=== PATIENT | male | born 1995 ===

== ENCOUNTER 2018-01-13 21:05 | Inpatient (IN) | payer BC ==
[~2018-01-13] VITALS: Ht 170.2 cm; Wt 70.3 kg
[2018-01-13] MEDS ORDERED: SODIUM CHLORIDE 0.9% 1000ML 1,000 ML IV STA ×2 (21:23→23:02)
[2018-01-13] MEDS ORDERED: KETOROLAC TROMETHAMINE 30 MG/ML VIAL IV STA (21:56)
[2018-01-13] MEDS ORDERED: ONDANSETRON INJ 2 MG/ML 2 ML VIAL IV STA ×2 (21:56→23:02)
[2018-01-13 22:20] LABS: BASO ABS # 0.01 K/uL (0-0.2); HEMATOCRIT 48.4 % (42-52); HEMOGLOBIN 17.7 g/dL (14.0-18.0); IG# 0.08 K/uL (0.00-0.02); LYMPH ABS # 1.22 K/uL (1.2-3.4); MEAN CELL VOLUME 89.5 fL (80-100); MEAN CORPUSCULAR HEMOGLOBIN 32.7 pg (25-34); MEAN CORPUSCULAR HGB CONC 36.6 g/dl (32-36); MEAN PLATELET VOLUME 9.6 fL (7.4-10.4); MONO % 4.7 %; MONO ABS # 0.96 K/uL (0.11-0.59); NEUT % 88.9 %; NEUT ABS # 18.01 K/uL (1.4-6.5); PLATELET COUNT 381 K/uL (130-400); RED CELL DISTRIBUTION WIDTH SD 38.3 fL (36.4-46.3); WHITE BLOOD COUNT 20.28 K/uL (4.8-10.8)
[2018-01-13] MEDS ORDERED: HYDROmorphone INJ 0.5 MG/0.5 ML SYR IV STA (23:02)
[2018-01-13] MEDS ORDERED: OPTIRAY 320 IV PRN (23:15)
[2018-01-13 23:20] LABS: CALCIUM 9.7 mg/dl (8.5-10.1); CREATININE 1.72 mg/dl (0.60-1.40); POTASSIUM 4.3 mmol/L (3.5-5.1)
[2018-01-13 23:23] LABS: TOTAL PROTEIN 8.3 gm/dl (6.4-8.2)
[2018-01-14] MEDS ORDERED: LACTATED RINGER'S 1000ML 1,000 ML IV STA (00:04)
[2018-01-14] MEDS ORDERED: HYDROmorphone INJ 1 MG/ML SYR IV PRN (00:15)
--- NOTE | 2018-01-14 00:54 | EMERGENCY ROOM VISIT NOTE ---
History Report prepared by Karel: Leandro Resendiz Under the Supervision of: Dr. Jah Cid M.D. First contact with patient: 21:23 Chief Complaint: ABDOMINAL PAIN Stated Complaint: AB PAIN Nursing Triage Summary: Pt reports the last 3 days he has had vomiting and diarrhea. Today around 1430 he started with sharp abdominal pains. History of Present Illness The patient is a 22 year old male who presents to the Emergency Room with complaints of constant, sharp, lower abdominal pain beginning three days ago. The patient states his discomfort started in his throat, spread to his chest, and then spread to his lower abdomen. He reports he is also experiencing a decreased appetite, nausea, vomiting, and diarrhea. The patient notes he was not able to eat or drink anything today. He states he was around his girlfriend that had the flu. The patient reports he tried Maalox prior to arrival, and it did not help. Pt denies LOC, headache, fevers, chills, diaphoresis, visual changes, neck pain, breathing difficulties, back pain, melena, hematochezia, urinary symptoms, numbness, weakness, lymphadenopathy, rash, eating anything unusual, major alcohol use, a history of abdominal surgeries, or other complaints. Source of History: patient Onset: three days ago Position: abdomen (lower) Quality: sharp Timing: constant Associated Symptoms: + nausea, + vomiting, + diarrhea Note: Associated symptoms: decreased appetite and fluid intake, being around his girlfriend who had the flu Review of Systems See HPI for pertinent positives and negatives. A total of ten systems were reviewed and were otherwise negative. Past Medical & Surgical Medical Problems: (1) Acute pancreatitis (2) No Known Active Medical Problems Family History Patient reports no known family medical history. Social History Smoking Status: Never Smoker Alcohol Use: none Marital Status: single Occupation Status: [employer] student Current/Historical Medications No Active Prescriptions or Reported Meds Allergies Coded Allergies: No Known Allergies (Unverified , 01/13/18) Physical Exam Vital Signs Date Time Temp Pulse Resp B/P (MAP) Pulse Ox O2 Delivery O2 Flow Rate FiO2 01/13/18 23:42 113 21 151/98 98 Room Air 01/13/18 23:02 115 20 152/91 98 Room Air 01/13/18 22:45 106 18 01/13/18 22:24 103 01/13/18 21:11 36.6 114 16 166/91 98 Room Air Physical Exam GENERAL: Awake, alert, uncomfortable ill appearing, no distress HEAD: Normocephalic, atraumatic. No edema. EYES: Normal conjunctiva. Sclera non-icteric. OROPHARYNX: Lips, tongue, and mucosa unremarkable. No erythema or exudate. NECK: Supple. No nuchal rigidity. FROM. No adenopathy. RESPIRATORY: CTA bilaterally. No wheezes rales or rhonchi. Normal respiratory effort. CARDIAC: Borderline tachycardic rate. Normal rhythm. No murmurs. No rubs. GI: Soft, non distended. Epigastric tenderness to palpation. No rebound or guarding. MUSCULOSKELETAL: Atraumatic. No edema. NEURO: Normal sensorium. Speech normal. SKIN: No rash or jaundice noted Medical Decision & Procedures ER Provider Diagnostic Interpretation: Radiology results as stated below per my review and radiologist interpretation CT ABDOMEN & PELVIS Without Contrast: Inflammatory stranding surrounding the pancreas suggestive of acute pancreatitis. No evidence of a focal fluid collection. Fatty infiltration of the liver. Possible sludge within the gallbladder. No evidence of free air. No evidence of bowel obstruction or wall thickening. Radiologist: Toi Langston DO Study ready at 0002 and initial results transmitted at 0007. Laboratory Results 01/13/18 22:10 Red Blood Count 5.41, Mean Corpuscular Volume 89.5, Mean Corpuscular Hemoglobin 32.7, Mean Corpuscular Hemoglobin Concent 36.6, Mean Platelet Volume 9.6, Neutrophils (%) (Auto) 88.9, Lymphocytes (%) (Auto) 6.0, Monocytes (%) (Auto) 4.7, Eosinophils (%) (Auto) 0.0, Basophils (%) (Auto) 0.0, Neutrophils # (Auto) 18.01, Lymphocytes # (Auto) 1.22, Monocytes # (Auto) 0.96, Eosinophils # (Auto) 0.00, Basophils # (Auto) 0.01 01/13/18 22:10 Test 01/13/18 00:00 01/13/18 22:10 01/14/18 00:38 Urine Color DK YELLOW Urine Appearance CLOUDY (CLEAR) Urine pH 5.0 (4.5-7.5) Urine Specific [place] 1.037 (1.000-1.030) Urine Protein 1+ (NEG) Urine Glucose (UA) NEG (NEG) Urine Ketones NEG (NEG) Urine Occult Blood TRACE (NEG) Urine Nitrite NEG (NEG) Urine Bilirubin NEG (NEG) Urine Urobilinogen NEG (NEG) Urine Leukocyte Esterase NEG (NEG) Urine WBC (Auto) 1-5 /hpf (0-5) Urine RBC (Auto) 0-4 /hpf (0-4) Urine Hyaline Casts (Auto) >30 /lpf (0-5) Urine Epithelial Cells (Auto) >30 /lpf (0-5) Urine Bacteria (Auto) NEG (NEG) Urine Renal Epithelial Cells /lpf (0-5) Urine Pathogenic Casts /lpf (0) Urine Mucus PRESENT (NONE PRSENT) White Blood Count 20.28 K/uL (4.8-10.8) Red Blood Count 5.41 M/uL (4.7-6.1) Hemoglobin 17.7 g/dL (14.0-18.0) Hematocrit 48.4 % (42-52) Mean Corpuscular Volume 89.5 fL (80-100) Mean Corpuscular Hemoglobin 32.7 pg (25-34) Mean Corpuscular Hemoglobin Concent 36.6 g/dl (32-36) Platelet Count 381 K/uL (130-400) Mean Platelet Volume 9.6 fL (7.4-10.4) Neutrophils (%) (Auto) 88.9 % Lymphocytes (%) (Auto) 6.0 % Monocytes (%) (Auto) 4.7 % Eosinophils (%) (Auto) 0.0 % Basophils (%) (Auto) 0.0 % Neutrophils # (Auto) 18.01 K/uL (1.4-6.5) Lymphocytes # (Auto) 1.22 K/uL (1.2-3.4) Monocytes # (Auto) 0.96 K/uL (0.11-0.59) Eosinophils # (Auto) 0.00 K/uL (0-0.5) Basophils # (Auto) 0.01 K/uL (0-0.2) RDW Standard Deviation 38.3 fL (36.4-46.3) RDW Coefficient of Variation 12.0 % (11.5-14.5) Immature Granulocyte % (Auto) 0.4 % Immature Granulocyte # (Auto) 0.08 K/uL (0.00-0.02) Anion Gap 16.0 mmol/L (3-11) Est Creatinine Clear Calc Drug Dose 69.2 ml/min Estimated GFR () 64.9 Estimated GFR (Non- 56.0 BUN/Creatinine Ratio 13.1 (10-20) Calcium Level 9.7 mg/dl (8.5-10.1) Total Bilirubin 0.9 mg/dl (0.2-1) Direct Bilirubin 0.2 mg/dl (0-0.2) Aspartate Amino Transf (AST/SGOT) 113 U/L (15-37) Alanine Aminotransferase (ALT/SGPT) 91 U/L (12-78) Alkaline Phosphatase 75 U/L (45-117) Total Protein 8.3 gm/dl (6.4-8.2) Albumin 5.0 gm/dl (3.4-5.0) Lipase 4171 U/L (73-393) Laboratory results reviewed by me Medications Administered Medications (Trade) Dose Ordered Sig/Judith Route Start Time Stop Time Status Last Admin Dose Admin Sodium Chloride 1,000 ml @ 999 mls/hr Q1H1M STAT IV 01/13/18 21:23 01/13/18 22:23 DC 01/13/18 22:07 999 MLS/HR Ketorolac Tromethamine (Toradol Inj) 15 mg NOW STAT IV 01/13/18 21:56 01/13/18 21:57 DC 01/13/18 22:07 15 MG Ondansetron HCl (Zofran Inj) 4 mg NOW STAT IV 01/13/18 21:56 01/13/18 21:57 DC 01/13/18 22:07 4 MG Sodium Chloride 1,000 ml @ 999 mls/hr Q1H1M STAT IV 01/13/18 23:02 01/14/18 00:02 DC 01/13/18 23:12 999 MLS/HR Ondansetron HCl (Zofran Inj) 4 mg NOW STAT IV 01/13/18 23:02 01/13/18 23:03 DC 01/13/18 23:11 4 MG Hydromorphone HCl (Dilaudid Inj) 0.5 mg NOW STAT IV 01/13/18 23:02 01/13/18 23:03 DC 01/13/18 23:12 0.5 MG Hydromorphone HCl (Dilaudid Inj) 1 mg Q15M PRN IV 01/14/18 00:15 01/28/18 00:14 01/14/18 00:10 1 MG Lactated Ringer's 1,000 ml @ 200 mls/hr Q5H STAT IV 01/14/18 00:04 01/14/18 05:03 01/14/18 00:32 200 MLS/HR ED Course 2122: Ordered Sodium Chloride 1000 ml @ 999 mls/hr IV 215: The patient was evaluated in room B09. A complete history and physical exam was performed. 2155: Ordered Ondansetron HCl 4mg IV, Toradol Inj 15mg IV 2302: Ordered Dilaudid Inj 0.5mg IV, Zofran Inj 4mg IV, Sodium Chloride 1000 ml @ 999 mls/hr IV 2346: Upon reexamination, the patient was resting. He requested more pain medication. I discussed the test results and treatment plan with him. The patient will be evaluated for further management. 0004: Ordered Lactated Ringer's 1000ml @ 200 mls/hr IV 0015: Ordered Dilaudid Inj 1mg IV 0025: I discussed the patient's case with Dr. Jensen, [facility] Hospitalist. The patient will be evaluated for further management and care. Medical Decision Triage Nursing notes reviewed and agree them. The patient's history was concerning for abdominal pain. Differential diagnosis: Etiologies such as appendicitis, diverticulitis, PUD, biliary pathology, UTI, pancreatitis, obstruction, mesenteric ischemia, aortic pathology, infections, inflammatory bowel disease, renal colic, as well as others were entertained. Physical examination findings: As above. ER treatment provided: IV normal saline 2 L IV Zofran IV Toradol On reassessment the patient felt the same. IV Dilaudid 0.5 mg On reassessment patient was still having pain IV Dilaudid 1 mg Lactated Ringer at 200 mL an hour IV Diagnostics interpreted by me: The labs revealed marked leukocytosis on CBC. Chemistry panel revealed some mild renal insufficiency seems to be consistent with dehydration. The patient has marked elevation of his lipase concerning for pancreatitis. Imaging studies: CT scan as above On reassessment after laboratory results revealed pancreatitis I did question the patient again and he did admit to alcohol use several days ago. I suspect that he has pancreatitis related to this. I gave my usual and customary discussion regarding this issue. Consultation: A consultation was placed with the [facility] hospitalist. The case was discussed and diagnostics were reviewed. The patient was evaluated in the ER for further treatment. Medication Reconcilliation Current Medication List: was personally reviewed by me Blood Pressure Screening Patient's blood pressure: Elevated blood pressure Blood pressure disposition: Elevated BP felt to be situational Consults Time Called: 1981 Consulting Physician: Dr. Jensen, [facility] Hospitalist Returned Call: [phone] I discussed the patient's case with Dr. Jensen, [facility] Hospitalist. The patient will be evaluated for further management and care. Impression Primary Impression: Acute pancreatitis Scribe Attestation The scribe's documentation has been prepared under my direction and personally reviewed by me in its entirety. I confirm that the note above accurately reflects all work, treatment, procedures, and medical decision making performed by me. Departure Information Dispostion Being Evaluated By Hospitalist Prescriptions No Active Prescriptions or Reported Meds Referrals No Doctor, Assigned (PCP) Patient Instructions My [facility]
--- NOTE | 2018-01-14 01:01 | History and Physical ---
History & Physical Date & Time of Service: Jan 14, 2018 at 00:43 Chief Complaint: Ab Pain Primary Care Physician: No Doctor, Assigned History of Present Illness Source: patient 22 year old male with no significant past medical history presented to [facility] with abdominal pain He describes his abdominal as centrally located. It started this morning when he woke up. It got worse at 1430. He describes it as a sharp contact pain that has been gradually getting worse. He rates the pain as rating from 5-9/10. Associated symptoms include nausea, vomiting, and decreased appetite. He notes that over the past 2-3 days he has had a viral infection with a sore throat, runny nose, fevers, chills, and diarrhea. He notes that he had 2-3 drinks on Friday night but denies any excess binge drinking. He denies any drug use. He denies any recent international travel. He denies any family history of gallstones or hyperlipidemia. In the ED his heart rate was 115 and blood pressure was 151/98. His labs were significant for a WCC of 20, Creat of 1.72, Lipase of 4171 and glucose of 152. He had a CT of his abdomen/pelvis which showed inflammatory stranding surrounding the pancrease and it showed gallbladder sludge. Past Medical/Surgical History Medical Problems: (1) Acute pancreatitis (2) No Known Active Medical Problems Family History Patient reports no known family medical history. Dad- HTN Social History Smoking Status: Never Smoker Smokeless Tobacco Use: No Alcohol Use: occasionally Drug Use: none Marital Status: single Housing status: lives with roommate Occupational Status: [employer] student Immunizations History of Tetanus Vaccine?: Unknown History of Pneumococcal: No History of Hepatitis B Vaccine: Unknown Allergies Coded Allergies: No Known Allergies (Unverified , 01/13/18) Home Medications No Active Prescriptions or Reported Meds Review of Systems Constitutional: + fever, + chills, + sweats, + fatigue Eyes: No worsening of vision, No redness Respiratory: No cough, No sputum, No shortness of breath Cardiovascular: No chest pain, No edema, No palpitations Abdomen: + pain, + nausea, + vomiting, + diarrhea, No constipation, No GI bleeding Musculoskeletal: No joint pain, No muscle pain, No swelling, No calf pain Genitourinary - Male: No hematuria, No dysuria Neurologic: No memory loss, No numbness/tingling, No balance problems Hematologic / Lymphatic: No abnormal bleeding/bruising, No clotting problems, No swollen lymph nodes Integumentary: No rash, No itch, No new/changing skin lesions Physical Exam Vital Signs Date Time Temp Pulse Resp B/P (MAP) Pulse Ox O2 Delivery O2 Flow Rate FiO2 01/13/18 23:42 113 21 151/98 98 Room Air 01/13/18 23:02 115 20 152/91 98 Room Air 01/13/18 22:45 106 18 01/13/18 22:24 103 01/13/18 21:11 36.6 114 16 166/91 98 Room Air General Appearance: WD/WN, no apparent distress Head: normocephalic, atraumatic Eyes: normal inspection, PERRL ENT: hearing grossly normal, pharynx normal, + pertinent finding (lips dry) Neck: supple, no adenopathy, no JVD, no carotid bruits Respiratory/Chest: lungs clear Cardiovascular: regular rate, rhythm, no murmur, normal peripheral pulses Abdomen/GI: normal bowel sounds, + tenderness (mild-moderate lower abdominal and mid abdominal tenderness, no rebound or guarding) Back: normal inspection, normal range of motion Extremities/Musculoskelatal: no calf tenderness, no pedal edema, non-tender, pelvis stable Neurologic/Psych: alert, normal mood/affect, oriented x 3 Skin: normal color, warm/dry, no rash Diagnostics Laboratory Results Results Past 24 Hours Test 01/13/18 22:10 01/14/18 00:38 Range/Units White Blood Count 20.28 4.8-10.8 K/uL Red Blood Count 5.41 4.7-6.1 M/uL Hemoglobin 17.7 14.0-18.0 g/dL Hematocrit 48.4 42-52 % Mean Corpuscular Volume 89.5 80-100 fL Mean Corpuscular Hemoglobin 32.7 25-34 pg Mean Corpuscular Hemoglobin Concent 36.6 32-36 g/dl Platelet Count 381 130-400 K/uL Mean Platelet Volume 9.6 7.4-10.4 fL Neutrophils (%) (Auto) 88.9 % Lymphocytes (%) (Auto) 6.0 % Monocytes (%) (Auto) 4.7 % Eosinophils (%) (Auto) 0.0 % Basophils (%) (Auto) 0.0 % Neutrophils # (Auto) 18.01 1.4-6.5 K/uL Lymphocytes # (Auto) 1.22 1.2-3.4 K/uL Monocytes # (Auto) 0.96 0.11-0.59 K/uL Eosinophils # (Auto) 0.00 0-0.5 K/uL Basophils # (Auto) 0.01 0-0.2 K/uL RDW Standard Deviation 38.3 36.4-46.3 fL RDW Coefficient of Variation 12.0 11.5-14.5 % Immature Granulocyte % (Auto) 0.4 % Immature Granulocyte # (Auto) 0.08 0.00-0.02 K/uL Sodium Level 137 136-145 mmol/L Potassium Level 4.3 3.5-5.1 mmol/L Chloride Level 102 98-107 mmol/L Carbon Dioxide Level 19 21-32 mmol/L Anion Gap 16.0 3-11 mmol/L Blood Urea Nitrogen 23 7-18 mg/dl Creatinine 1.72 0.60-1.40 mg/dl Est Creatinine Clear Calc Drug Dose 69.2 ml/min Estimated GFR () 64.9 Estimated GFR (Non- 56.0 BUN/Creatinine Ratio 13.1 10-20 Random Glucose 152 70-99 mg/dl Calcium Level 9.7 8.5-10.1 mg/dl Total Bilirubin 0.9 0.2-1 mg/dl Direct Bilirubin 0.2 0-0.2 mg/dl Aspartate Amino Transf (AST/SGOT) 113 15-37 U/L Alanine Aminotransferase (ALT/SGPT) 91 12-78 U/L Alkaline Phosphatase 75 45-117 U/L Total Protein 8.3 6.4-8.2 gm/dl Albumin 5.0 3.4-5.0 gm/dl Lipase 4171 73-393 U/L Diagnostic Radiology CT abdomen/pelvis = inflammatory stranding surrounding the Pancreas and sludge in the gallbladder Impression Assessment and Plan 22 year old with no significant PMH presented to [facility] with abdominal pain and was found to have acute pancreatitis Acute Pancreatitis due to unknown eitology - DDx: Alcohol (will order EtOH level), Drug (ordering urine drug screen), Hypertriglyceridemia (ordering lipid panel), Viral infection - NPO - IV w/ LR at 200 mls/hr - Dilaudid 0.5mg q4 IV prn pain - Zofran IV prn nausea - Trend lipase Impaired fasting glucose - likely secondary to abnormal pancreatic function - will check an HbA1c DVT - scd's lower extremities FULL CODE Attending addendum: I have physically seen this patient, have supervised the medical residents activities, and agree with the H&P unless as otherwise noted. Assessment and Plan: Acute pancreatitis-- N.p.o. Rehydration with lactated Ringer's IV fluids at 100 mL's per hour Serial lipase levels Zofran 4 mg IV every 6 hours as needed. Dilaudid 0.5 mg IV every 4 hours as needed severe pain Check a urine drug screen, fasting lipid panel, and hemoglobin A1c. Advanced Directives Existing Advance Directive: No Existing Living Will: No Resuscitation Status VTE Prophylaxis Will order VTE Prophylaxis: Yes Social Service Consult None Apply
[2018-01-14] MEDS: HYDROmorphone INJ 0.5 MG/0.5 ML SYR IV PRN ×3 (02:28→11:31)
[2018-01-14 02:58] VITALS: BP 145/96; PULSE 120; TEMP 36.8; O2SAT 96; BMI 25.2
[2018-01-14] MEDS: LACTATED RINGER'S 1000ML 1,000 ML IV SCH ×5 (04:13→23:43)
--- NOTE | 2018-01-14 07:24 | DIAGNOSTIC IMAGING REPORT ---
ABDOMEN AND PELVIS CT WITHOUT CONTRAST CT DOSE: 312.88 mGy.cm HISTORY: upper abd pain, pancreatitis, NELL cr 1.72 TECHNIQUE: Multiaxial CT images of the abdomen and pelvis were performed without contrast. A dose lowering technique was utilized adhering to the principles of ALARA. COMPARISON STUDY: None. FINDINGS: The lung bases are clear. No pneumoperitoneum. No pneumatosis. No fractures within the visualized osseous structures. Hepatic steatosis. Slightly hyperdense material within the gallbladder. This could represent sludge. The unenhanced spleen, adrenal glands, and kidneys are unremarkable. Peripancreatic inflammatory change and a small amount of free fluid consistent with acute pancreatitis. Evaluation for a pancreatic mass or pancreatic necrosis is essentially nondiagnostic due to the lack of intravenous contrast. No significant retroperitoneal lymphadenopathy. Mild thickening of the second portion of the duodenum is likely reactive. The bladder is decompressed. No evidence for bowel obstruction. Normal appendix. IMPRESSION: 1. Peripancreatic inflammatory change and fluid consistent with acute pancreatitis. No loculated fluid collections at this time to suggest an abscess or pseudocyst. 2. Slightly hyperdense material within the gallbladder suggestive of sludge. 3. Hepatic steatosis. Electronically signed by: Wagner Dominique M.D. 01/14/2018 7:23 AM Dictated Date/Time: 01/14/2018 7:19 AM
[2018-01-14] MEDS: ONDANSETRON INJ 2 MG/ML 2 ML VIAL IV PRN (07:38)
[2018-01-14 07:59] LABS: BASO % 0.1 %; BASO ABS # 0.01 K/uL (0-0.2); EOS % 0.1 %; EOS ABS # 0.01 K/uL (0-0.5); HEMATOCRIT 40.1 % (42-52); HEMOGLOBIN 14.4 g/dL (14.0-18.0); IG# 0.03 K/uL (0.00-0.02); LYMPH % 3.8 %; LYMPH ABS # 0.53 K/uL (1.2-3.4); MEAN CELL VOLUME 90.5 fL (80-100); MEAN CORPUSCULAR HEMOGLOBIN 32.5 pg (25-34); MEAN CORPUSCULAR HGB CONC 35.9 g/dl (32-36); MEAN PLATELET VOLUME 9.3 fL (7.4-10.4); MONO ABS # 1.25 K/uL (0.11-0.59); NEUT % 86.8 %; NEUT ABS # 12.02 K/uL (1.4-6.5); PLATELET COUNT 255 K/uL (130-400); RED CELL DISTRIBUTION WIDTH CV 12.2 % (11.5-14.5); RED CELL DISTRIBUTION WIDTH SD 39.6 fL (36.4-46.3); WHITE BLOOD COUNT 13.85 K/uL (4.8-10.8)
[2018-01-14 08:23] LABS: ALBUMIN 3.5 gm/dl (3.4-5.0); CALCIUM 8.1 mg/dl (8.5-10.1); CREATININE 1.09 mg/dl (0.60-1.40); POTASSIUM 4.1 mmol/L (3.5-5.1); TOTAL PROTEIN 5.9 gm/dl (6.4-8.2)
[2018-01-14 08:25] VITALS: BP 152/94; PULSE 109; TEMP 36.8; O2SAT 99
[2018-01-14] MEDS ORDERED: HYDROmorphone INJ 2 MG/ML SYR/VIAL IV ONE (11:42)
--- NOTE | 2018-01-14 13:53 | Progress Note ---
Progress Note Date of Service Jan 14, 2018. Progress Note Discussed case w/patients mother, Dr. Angella Roche, over the phone, she is on her way here, should be here in about 4 hours. All questions answered. She can be contacted at: [phone] or [phone]
[2018-01-14 15:15] VITALS: O2SAT 98
[2018-01-14] MEDS: HYDROmorphone INJ 2 MG/ML SYR/VIAL IV PRN ×4 (15:25→23:12)
[2018-01-14 15:37] VITALS: BP 145/83; PULSE 103; TEMP 37.1; O2SAT 98
--- NOTE | 2018-01-14 18:15 | Family Medicine Progress Note ---
Progress Note Date of Service Jan 14, 2018. Subjective Pt evaluation today including: conversation w/ patient, physical exam, lab review, review of studies Pain: Moderate abdo pain, 7/10 PO Intake: NPO Voiding: no voiding problems Patient sitting upright, appears uncomfortable. Complains of nausea and abdominal pain. States that the dilauded only helps for about an hour, improves to 4/10, but then quickly returns to 7-8/10. Constitutional: No fever, No chills Respiratory: No cough Cardiovascular: No chest pain Abdomen: + pain, + nausea, No vomiting, No diarrhea All Other Systems: Reviewed and Negative Medications Current Inpatient Medications Medications (Trade) Dose Ordered Sig/Judith Route Start Time Stop Time Status Last Admin Dose Admin Ioversol (Optiray 320) 100 ml UD PRN IV 01/13/18 23:15 01/17/18 23:14 Lactated Ringer's 1,000 ml @ 200 mls/hr Q5H IV 01/14/18 04:00 02/13/18 03:59 01/14/18 09:14 200 MLS/HR Ondansetron HCl (Zofran Inj) 4 mg Q6H PRN IV 01/14/18 00:45 02/13/18 00:44 01/14/18 07:38 4 MG Hydromorphone HCl (Dilaudid Inj) 1 mg Q2HWA PRN IV 01/14/18 11:45 01/28/18 00:44 Objective Vital Signs Date Time Temp Pulse Resp B/P (MAP) Pulse Ox O2 Delivery O2 Flow Rate FiO2 01/14/18 08:25 36.8 109 16 152/94 (113) 99 Room Air 01/14/18 07:40 Room Air 01/14/18 02:58 36.8 120 18 145/96 96 Room Air 01/14/18 02:40 Room Air 01/14/18 02:31 145/84 01/14/18 02:06 109 19 95 01/14/18 02:01 130/56 01/14/18 01:59 112 18 95 01/14/18 01:31 151/88 01/14/18 01:29 122 18 97 01/14/18 01:24 150/91 01/14/18 01:17 116 21 95 Room Air 01/14/18 01:01 150/91 01/14/18 00:47 121 21 96 01/14/18 00:31 151/93 01/14/18 00:17 124 18 97 01/14/18 00:01 151/90 01/13/18 23:47 116 21 99 01/13/18 23:42 113 21 151/98 98 Room Air 01/13/18 23:02 115 20 152/91 98 Room Air 01/13/18 22:45 106 18 01/13/18 22:24 103 01/13/18 21:11 36.6 114 16 166/91 98 Room Air Physical Exam General Appearance: WD/WN, no apparent distress Eyes: EOMI ENT: hearing grossly normal Neck: no JVD, no carotid bruits, trachea midline Respiratory/Chest: chest non-tender, lungs clear, normal breath sounds, no respiratory distress, no accessory muscle use Cardiovascular: no edema, no murmur, + tachycardia Abdomen: normal bowel sounds, soft, + tenderness Extremities: normal range of motion, non-tender, normal inspection, no pedal edema, no calf tenderness Neurologic/Psychiatric: doctor of medicine II-XII nml as tested, no motor/sensory deficits, alert, normal mood/affect, oriented x 3 Skin: normal color, warm/dry Laboratory Results Last Resulted 01/14/18 07:33 Red Blood Count 4.43, Mean Corpuscular Volume 90.5, Mean Corpuscular Hemoglobin 32.5, Mean Corpuscular Hemoglobin Concent 35.9, Mean Platelet Volume 9.3, Neutrophils (%) (Auto) 86.8, Lymphocytes (%) (Auto) 3.8, Monocytes (%) (Auto) 9.0, Eosinophils (%) (Auto) 0.1, Basophils (%) (Auto) 0.1, Neutrophils # (Auto) 12.02, Lymphocytes # (Auto) 0.53, Monocytes # (Auto) 1.25, Eosinophils # (Auto) 0.01, Basophils # (Auto) 0.01 Last Resulted 01/14/18 07:33 Assessment and Plan 22 year old with insignificant PMH presented to [facility] with abdominal pain, nausea , and vomiting, found to have acute pancreatitis via CTAP and elevated lipase Acute Pancreatitis, unknown eitology - Alcohol level < 3,urine tox neg, Triglycerides 340, +recent viral illness, + gallbladder sludge - NPO, IVF w/ LR at 200 mls/hr - Dilaudid 1mg q2 IV prn pain - Zofran IV q6h prn nausea - Continue to monitor symptoms Impaired fasting glucose - likely secondary to abnormal pancreatic function, improving DVTP: SCDs Code: Full Dispo: Med/surg Resident Physician Supervision Note: I interviewed and examined the patient. Discussed with Dr. Alberto and agree with findings and plan as documented in the note. Any exceptions or clarifications are listed here: None Documented By: Jaya Gordon feeling about the same - pain and nausea vitals noted nad fatigued appearing epigastric ttp but not exquisitely tender and no guarding no rebound no rigidity acute pancreatitis - idiopathic vs biliary seems most likely -reliably answers EtOH related quetions in very low moderation making EtOH unlikley -biliary sludge noted - doesn't appear obviously obstructed, but if fails to show improvement by tomrorow will need to w/u further - otherwise would eval as outpt for completeness -TGs elevated but not in a pancreatitis causing range. check A1c hyperglycemia - likely stress response but check A1c otherwise as above Resident Tracking Resident Involvement: Resident Care Provided Care Provided: Adult Hospital Medicine
[2018-01-14 22:58] VITALS: BP 151/83; PULSE 113; TEMP 38.6; O2SAT 95
[2018-01-14] MEDS ORDERED: NURSING VERBAL MED ORDER ONE (23:30)
[2018-01-14] MEDS ORDERED: PIPERACILL/TAZOBAC CONSULT ACTIVE PRN (23:30)
[2018-01-14] MEDS ORDERED: PIPERACILL/TAZOBAC IV 3.375 GM in NSS 100 ML IV ONE (23:30)
[2018-01-14] MEDS: KETOROLAC TROMETHAMINE 15 MG/ML VIAL IV. PRN (23:42)
[2018-01-15] VITALS (7 sets, daily range): BP systolic 121–153; BP diastolic 76–90; PULSE 100–120; TEMP 37–39.1; O2SAT 93–97
[2018-01-15] MEDS: LACTATED RINGER'S 1000ML 1,000 ML IV SCH ×4 (05:03→19:52)
[2018-01-15] MEDS: KETOROLAC TROMETHAMINE 15 MG/ML VIAL IV. PRN (05:37)
[2018-01-15 05:41] LABS: BASO % 0.1 %; BASO ABS # 0.01 K/uL (0-0.2); EOS % 0.3 %; EOS ABS # 0.03 K/uL (0-0.5); HEMATOCRIT 39.2 % (42-52); HEMOGLOBIN 13.5 g/dL (14.0-18.0); IG# 0.02 K/uL (0.00-0.02); LYMPH % 5.9 %; LYMPH ABS # 0.62 K/uL (1.2-3.4); MEAN CELL VOLUME 92.9 fL (80-100); MEAN CORPUSCULAR HGB CONC 34.4 g/dl (32-36); MEAN PLATELET VOLUME 8.9 fL (7.4-10.4); MONO % 9.7 %; MONO ABS # 1.01 K/uL (0.11-0.59); NEUT % 83.8 %; NEUT ABS # 8.77 K/uL (1.4-6.5); PLATELET COUNT 146 K/uL (130-400); RED CELL DISTRIBUTION WIDTH CV 12.4 % (11.5-14.5); RED CELL DISTRIBUTION WIDTH SD 41.9 fL (36.4-46.3); WHITE BLOOD COUNT 10.46 K/uL (4.8-10.8)
[2018-01-15] MEDS: HYDROmorphone INJ 2 MG/ML SYR/VIAL IV PRN ×6 (05:48→23:31)
[2018-01-15] MEDS ORDERED: PIPERACILL/TAZOBAC IV 3.375 GM in NSS 100ML IV SCH (06:00)
[2018-01-15 06:33] LABS: CALCIUM 7.9 mg/dl (8.5-10.1); CREATININE 1.1 mg/dl (0.60-1.40); POTASSIUM 3.9 mmol/L (3.5-5.1)
[2018-01-15 08:36] LABS: HEMOGLOBIN A1C 4.9 % (4.5-5.6)
--- NOTE | 2018-01-15 09:28 | Clinical Documentation Query ---
QUERY 1 OF [address] PATEL, In your clinical opinion is this patient being managed for: ( x ) SIRS of non-infectious origin with acute organ dysfunction (NELL) ( ) Not Agree ( ) Other explanation of clinical findings (Please Explain) ( ) Unable to determine (Please Define) ( ) Need to Discuss The medical record reflects the following clinical findings, treatment, and risk factors. Clinical Indicators: 22 year male presenting with acute pancreatitis. VS 36.6-114-16, 166/91. WBC 20.28, Cr 1.17, NF glucose 152. Treatment: IV fluid boluses then continuous, IV zosyn, Risk Factors: acute pancreatitis *SIRS may be clinically indicated by any 2 of the 4 following indicators in the presence of an infectious process: 1.Temperature >38*C or <36C 2.Heart Rate >90/min 3.Respiratory Rate >20/min or PaCO2 <32 mm Hg 4.WBC >12,000/mm3 or <4000/mm3 or >10% immature bands QUERY 2 OF 2 In your clinical opinion is this patient being managed for: ( x) Acute kidney failure, resolved ( ) Not Agree ( ) Other explanation of clinical findings (Please Explain) ( ) Unable to determine (Please Define) ( ) Need to Discuss The medical record reflects the following clinical findings, treatment, and risk factors. Clinical Indicators: Initial Cr 1.72 which has trended down to Cr 1.10 Treatment: IV fluid boluses, monitor PRP's Risk Factors: acute pancreatitis Please clarify and document your clinical opinion in the progress notes and discharge summary. Terms such as "probable", "suspected", "likely", "questionable", "possible", or "still to be ruled out" are acceptable. IF IN AGREEMENT, YOU MUST DOCUMENT ABOVE DIAGNOSTIC STATEMENT IN DAILY PROGRESS NOTES AND DISCHARGE SUMMARY. This document is not part of the patient's record. Thank You, Salima Loredo, RN [phone]
--- NOTE | 2018-01-15 09:30 | Clinical Documentation Query ---
QUERY 1 OF [address] SHEFFIELD, In your clinical opinion is this patient being managed for: ( x ) SIRS of non-infectious origin with acute organ dysfunction (NELL) ( ) Not Agree ( ) Other explanation of clinical findings (Please Explain) ( ) Unable to determine (Please Define) ( ) Need to Discuss The medical record reflects the following clinical findings, treatment, and risk factors. Clinical Indicators: 22 year male presenting with acute pancreatitis. VS 36.6-114-16, 166/91. WBC 20.28, Cr 1.17, NF glucose 152. Treatment: IV fluid boluses then continuous, IV zosyn, Risk Factors: acute pancreatitis *SIRS may be clinically indicated by any 2 of the 4 following indicators in the presence of an infectious process: 1.Temperature >38*C or <36C 2.Heart Rate >90/min 3.Respiratory Rate >20/min or PaCO2 <32 mm Hg 4.WBC >12,000/mm3 or <4000/mm3 or >10% immature bands QUERY 2 OF 2 In your clinical opinion is this patient being managed for: ( x ) Acute kidney failure ( ) Not Agree ( ) Other explanation of clinical findings (Please Explain) ( ) Unable to determine (Please Define) ( ) Need to Discuss The medical record reflects the following clinical findings, treatment, and risk factors. Clinical Indicators: Initial Cr 1.72 which has trended down to Cr 1.10 Treatment: IV fluid boluses, monitor PRP's Risk Factors: acute pancreatitis Please clarify and document your clinical opinion in the progress notes and discharge summary. Terms such as "probable", "suspected", "likely", "questionable", "possible", or "still to be ruled out" are acceptable. IF IN AGREEMENT, YOU MUST DOCUMENT ABOVE DIAGNOSTIC STATEMENT IN DAILY PROGRESS NOTES AND DISCHARGE SUMMARY. This document is not part of the patient's record. Thank You, Salima Loredo, RN [phone]
[2018-01-15] MEDS ORDERED: ACETAMINOPHEN 325 MG TAB PO STA (16:21)
[2018-01-15 16:57] LABS: BASO % 0.1 %; BASO ABS # 0.01 K/uL (0-0.2); EOS % 0.3 %; EOS ABS # 0.03 K/uL (0-0.5); HEMATOCRIT 38.6 % (42-52); HEMOGLOBIN 13.4 g/dL (14.0-18.0); IG# 0.03 K/uL (0.00-0.02); LYMPH % 5.9 %; LYMPH ABS # 0.58 K/uL (1.2-3.4); MEAN CELL VOLUME 92.8 fL (80-100); MEAN CORPUSCULAR HEMOGLOBIN 32.2 pg (25-34); MONO % 10.1 %; MONO ABS # 0.99 K/uL (0.11-0.59); NEUT % 83.3 %; NEUT ABS # 8.17 K/uL (1.4-6.5); PLATELET COUNT 123 K/uL (130-400); RED CELL DISTRIBUTION WIDTH CV 12.4 % (11.5-14.5); RED CELL DISTRIBUTION WIDTH SD 41.4 fL (36.4-46.3); WHITE BLOOD COUNT 9.81 K/uL (4.8-10.8)
[2018-01-15 17:18] LABS: CREATININE 0.85 mg/dl (0.60-1.40); POTASSIUM 3.6 mmol/L (3.5-5.1)
[2018-01-15 17:26] LABS: MEAN CORPUSCULAR HGB CONC 34.7 g/dl (32-36)
[2018-01-15 18:28] LABS: ALBUMIN 2.6 gm/dl (3.4-5.0); TOTAL PROTEIN 5.7 gm/dl (6.4-8.2)
--- NOTE | 2018-01-15 19:23 | DIAGNOSTIC IMAGING REPORT ---
ABDOMEN AND PELVIS CT WITH IV AND ORAL CONTRAST CT DOSE: 440.00 mGy.cm HISTORY: Follow-up study in a patient with acute pancreatitis. Concern for possible pancreatic necrosis or peripancreatic fluid collection ?pancreatic necrosis / pseudocyst formation TECHNIQUE: Multiaxial CT images of the abdomen and pelvis were performed following the use of intravenous and oral contrast. A dose lowering technique was utilized adhering to the principles of ALARA. COMPARISON STUDY: CT abdomen and pelvis 01/13/2018. FINDINGS: Interval development of moderate left and small right pleural effusions with dependent bibasilar consolidation suggesting compressive atelectasis. Indeterminate 5 mm nodule of the basal right lower lobe. There is no pneumatosis or pneumoperitoneum identified. Imaged inferior cardiac chambers are unremarkable. The gallbladder, spleen, and adrenal glands are unremarkable. Hepatic steatosis. Kidneys, ureters and bladder are within normal limits. Wall thickening of the bladder is likely secondary to partial distention. Prostate is within normal limits. Suggestion of small bilateral hydroceles. There is progressive interstitial and peripancreatic inflammatory changes with progressive mild abdominal pelvic ascites. No loculated pancreatic fluid collections or evidence of pancreatic process. There is homogeneous enhancement throughout the pancreas. The splenic vein and artery appear patent. Superior mesenteric vein is also patent as is the portal vein. No pancreatic ductal dilation. Aorta is normal in course and caliber. IVC is patent. No bulky adenopathy. Mildly prominent periaortic lymph nodes measuring up to 7 mm are likely reactive. Mildly prominent iliac chain lymph nodes are also seen which are subcentimeter in size. No bowel obstruction. There is mild dilation and wall thickening of the duodenum which is likely reactive. Normal appendix. Soft tissues are unremarkable. Noted the bones appear intact. IMPRESSION: 1. Progressive interstitial and peripancreatic inflammatory changes with increased amount of abdominal ascites is compatible with worsened uncomplicated acute pancreatitis. No loculated peripancreatic fluid collections or evidence of pancreatic necrosis. 2. Interval development of moderate left and small right pleural effusions with dependent bibasilar consolidation suggesting compressive atelectasis. 3. Mild wall thickening of the duodenum is likely reactive. 4. Hepatic steatosis. 5. Normal appendix. Electronically signed by: Chris Pak M.D. 01/15/2018 7:22 PM Dictated Date/Time: 01/15/2018 7:13 PM
--- NOTE | 2018-01-15 19:59 | DIAGNOSTIC IMAGING REPORT ---
CHEST 2 VIEWS ROUTINE CLINICAL HISTORY: 22 years-old Male presenting with fever, eval for lower lobe pneumonia. TECHNIQUE: PA and lateral views of the chest were obtained. COMPARISON: None. FINDINGS: Cardiomediastinal silhouette normal. Dense opacity in the left lower lobe. Associated moderate left pleural effusion. No pneumothorax. Right lung and pleural space clear. Osseous structures normal. Upper abdomen normal. IMPRESSION: 1. Findings consistent with left lower lobe pneumonia with a moderate parapneumonic effusion. Contrast-enhanced chest CT to be considered for further evaluation as clinically indicated. Electronically signed by: Siddharth Bower M.D. 01/15/2018 7:57 PM Dictated Date/Time: 01/15/2018 7:57 PM
--- NOTE | 2018-01-15 20:29 | Family Medicine Progress Note ---
Progress Note Date of Service Jan 15, 2018. Subjective Pt evaluation today including: conversation w/ patient, physical exam, chart review, lab review, review of studies Pain: Continues to report moderate abdominal pain PO Intake: clear liquids as tolerated Voiding: no voiding problems Patient states he is perceiving more left sided abdominal pain today, felt it may have improved from yesterday at some point but has started to worsen again Constitutional: No fever Respiratory: No cough, No shortness of breath Cardiovascular: No chest pain Abdomen: + pain, + nausea Skin: No rash All Other Systems: Reviewed and Negative Medications Current Inpatient Medications Medications (Trade) Dose Ordered Sig/Judith Route Start Time Stop Time Status Last Admin Dose Admin Ioversol (Optiray 320) 100 ml UD PRN IV 01/13/18 23:15 01/17/18 23:14 Lactated Ringer's 1,000 ml @ 200 mls/hr Q5H IV 01/14/18 04:00 02/13/18 03:59 01/15/18 19:52 200 MLS/HR Ondansetron HCl (Zofran Inj) 4 mg Q6H PRN IV 01/14/18 00:45 02/13/18 00:44 01/14/18 07:38 4 MG Hydromorphone HCl (Dilaudid Inj) 1 mg Q2HWA PRN IV 01/14/18 11:45 01/28/18 00:44 01/15/18 16:51 1 MG Objective Vital Signs Date Time Temp Pulse Resp B/P (MAP) Pulse Ox O2 Delivery O2 Flow Rate FiO2 01/15/18 19:18 37.0 01/15/18 15:40 38.4 120 01/15/18 15:40 93 Room Air 01/15/18 15:23 37.2 110 18 137/84 (101) 93 Room Air 01/15/18 07:41 37.2 100 16 121/76 (91) 97 Room Air 01/15/18 07:20 Room Air 01/15/18 00:34 37.5 01/14/18 23:15 Room Air 01/14/18 22:58 38.6 113 16 151/83 (105) 95 Room Air Physical Exam General Appearance: WD/WN, no apparent distress Eyes: PERRL, EOMI ENT: hearing grossly normal Respiratory/Chest: chest non-tender, normal breath sounds, no respiratory distress, no accessory muscle use Cardiovascular: regular rate, rhythm, no edema, no murmur Abdomen: normal bowel sounds, + distended, + guarding, + tenderness Extremities: non-tender, normal inspection, no pedal edema, no calf tenderness Neurologic/Psychiatric: hospital medicine director II-XII nml as tested, no motor/sensory deficits, alert, normal mood/affect, oriented x 3 Skin: normal color, warm/dry Laboratory Results Last Resulted 01/15/18 16:48 Red Blood Count 4.16, Mean Corpuscular Volume 92.8, Mean Corpuscular Hemoglobin 32.2, Mean Corpuscular Hemoglobin Concent 34.7, Mean Platelet Volume 9.0, Neutrophils (%) (Auto) 83.3, Lymphocytes (%) (Auto) 5.9, Monocytes (%) (Auto) 10.1, Eosinophils (%) (Auto) 0.3, Basophils (%) (Auto) 0.1, Neutrophils # (Auto ) 8.17, Lymphocytes # (Auto) 0.58, Monocytes # (Auto) 0.99, Eosinophils # (Auto ) 0.03, Basophils # (Auto) 0.01 Last Resulted 01/15/18 16:48 Assessment and Plan 22 year old with insignificant PMH presented to [facility] with abdominal pain, nausea , and vomiting, found to have acute pancreatitis via CTAP and elevated lipase Acute Pancreatitis, unknown eitology/SIRS of non-infectous origin with acute organ dysfunction (NELL--resolved) - Alcohol level < 3,urine tox neg, Triglycerides 340, +recent viral illness, + gallbladder sludge - Clear liquids, advance as tolerate, IVF w/ LR at 200 mls/hr - Dilaudid 1mg q2 IV prn pain - Zofran IV q6h prn nausea - Patient spiked fever overnight, was placed on zosyn by night team, discontinued this AM. - Continue to monitor symptoms: Patient developed worsening abdominal pain and guarding on exam with elevated temp this evening, stat CTabdo ordered, no evidence of necrosis or pseudocyst formation - Will place routine GI consult - CXR ordered for possible lower lobe pneumonia, will reassess need for antibiotics in AM Impaired fasting glucose - likely secondary to abnormal pancreatic function, improving DVTP: SCDs Code: Full Dispo: Med/surg Resident Physician Supervision Note: I interviewed and examined the patient. Discussed with Dr. Alberto and agree with findings and plan as documented in the note. Any exceptions or clarifications are listed here: None Documented By: Jaya Evna felt about the same this AM - then felt worse as day progressed, somewhat worse pain (although similar exam) fever/tachycardia vitals noted fatigued and somewhat diaphoretic, abd mod distention epigastric and LUQ TTP no rebound acute pancreatitis - idiopathic most likely post viral. depending on progress further biliary w/u inpt or outpt. w worsening SIRS have to eval for pancreatic complications - repeat CT (fortunately as late addendum no necrosis/ pseudocyst) SIRS - while worsening from pancreatitis alone may be the whole story, have to eval for secondary infection because his worsening SIRS appears disproportionate to his wrosneing pancreatitis -- CXR, blood cultures, sserial exams otherwise as above Resident Tracking Resident Involvement: Resident Care Provided Care Provided: Adult Hospital Medicine
[2018-01-16] VITALS (18 sets, daily range): BP systolic 136–155; BP diastolic 81–98; PULSE 77–132; TEMP 37.1–39.4; O2SAT 85–98
[2018-01-16] MEDS: ACETAMINOPHEN 325 MG TAB PO SCH ×3 (00:11→08:08)
[2018-01-16] MEDS ORDERED: VANCOMYCIN IV 1,000 MG in SODIUM CHLORIDE 0.9% 250ML 250 ML IV SCH (01:00)
[2018-01-16] MEDS ORDERED: VANCOMYCIN CONSULT ACTIVE PRN ×2 (01:00→20:30)
[2018-01-16] MEDS ORDERED: PIPERACILL/TAZOBAC IV 3.375 GM in DEXTROSE 5% 100ML 100 ML IV SCH (01:00)
[2018-01-16] MEDS ORDERED: PIPERACILL/TAZOBAC CONSULT ACTIVE PRN (01:00)
[2018-01-16] MEDS ORDERED: VANCOMYCIN IV 1,750 MG in SODIUM CHLORIDE 0.9% 500ML 500 ML IV SCH (01:15)
[2018-01-16] MEDS ORDERED: PIPERACILL/TAZOBAC IV 3.375 GM in NSS 100 ML IV ONE (01:15)
[2018-01-16] MEDS: LACTATED RINGER'S 1000ML 1,000 ML IV SCH ×2 (01:19→11:39)
[2018-01-16] MEDS: HYDROmorphone INJ 2 MG/ML SYR/VIAL IV PRN ×7 (02:08→23:37)
[2018-01-16] MEDS ORDERED: LEVALBUTEROL 0.63MG/3 ML NEB INH SCH (04:00)
[2018-01-16] MEDS: LEVALBUTEROL 0.63MG/3 ML NEB INH SCH ×6 (04:00→23:19)
--- NOTE | 2018-01-16 04:19 | Progress Note ---
Progress Note Date of Service Jan 16, 2018. Progress Note I went to evaluate this patient at 1200 pm as per recommendation of the day team and due to a fever of 39.1 Upon visiting the patient he was AAA 0x3 and was in mild distress. He rated his pain as a 5/10 in severity and he was diaphoretic. Upon examination of his abdomen it was firm and warm to the touch. He had generalized abdominal tenderness with mild guarding. His breath sounds were decreased bilaterally with soft crackles in the lower lobes. His pain was most pronounced in the Left middle quadrant. I therefore spoke to Dr. Perez who recommended we transfer the patient to the ICU for further monitoring overnight. We started the patient on Vanc and Zosyn, we decreased his IV fluids to 100mls/hr, we gave him tylenol for his fever and we ordered xopenex nebs as he wasn't moving air very well. We also ordered a diagnostic paracentesis for the following morning to evaluate for SBP due to the warmth and tenderness of his abdomen. -Delfino Desir PGY2
[2018-01-16 04:54] LABS: HEMATOCRIT 35.6 % (42-52); HEMOGLOBIN 12.5 g/dL (14.0-18.0); MEAN CORPUSCULAR HEMOGLOBIN 32.3 pg (25-34); MEAN CORPUSCULAR HGB CONC 35.1 g/dl (32-36); RED CELL DISTRIBUTION WIDTH CV 12.4 % (11.5-14.5); RED CELL DISTRIBUTION WIDTH SD 41.4 fL (36.4-46.3); WHITE BLOOD COUNT 8.55 K/uL (4.8-10.8)
[2018-01-16 05:14] LABS: ALBUMIN 2.2 gm/dl (3.4-5.0); CALCIUM 7.6 mg/dl (8.5-10.1); CREATININE 0.83 mg/dl (0.60-1.40); POTASSIUM 3.4 mmol/L (3.5-5.1)
[2018-01-16 05:17] LABS: TOTAL PROTEIN 5.4 gm/dl (6.4-8.2)
[2018-01-16 05:20] LABS: MEAN PLATELET VOLUME 8.9 fL (7.4-10.4); PLATELET COUNT 90 K/uL (130-400)
[2018-01-16 05:21] LABS: BASO % 0.1 %; BASO ABS # 0.01 K/uL (0-0.2); EOS % 0.5 %; EOS ABS # 0.04 K/uL (0-0.5); IG# 0.03 K/uL (0.00-0.02); LYMPH % 10.1 %; LYMPH ABS # 0.86 K/uL (1.2-3.4); MONO % 13.6 %; MONO ABS # 1.16 K/uL (0.11-0.59); NEUT % 75.3 %; NEUT ABS # 6.45 K/uL (1.4-6.5)
--- NOTE | 2018-01-16 06:06 | Critical Care Consultation ---
Critical Care Consultation Date of Consultation: Jan 16, 2018. Attending Physician: Jaya Gordon D.O. Reason for Consultation: 22-year-old male recently admitted for acute pancreatitis with progressively worsening symptoms including fevers, tachycardia, and development of ascites requiring close monitoring. History of Present Illness Patient there is a 22-year-old [facility] [employer] [facility] [employer] undergraduate math major who was initially admitted to the [facility] floor for acute uncomplicated pancreatitis. Throughout his stay, the patient has developed ascites now presenting with fever and tachycardia. Initially, his liver enzymes were elevated. He had a moderate leukocytosis on initial presentation as well. His platelet count has trended down despite use of anticoagulants. Urine tox was negative. A repeat abdomen/pelvis CT demonstrated persistent peripancreatic inflammation without abscess or necrotic lesion. Ascites noted on exam. GI consultation was placed last evening. Patient's condition continued to worsen requiring closer evaluation and monitoring. On evaluation of the ICU, the patient is awake, alert, and oriented. He reports that his symptoms initially started on Friday afternoon with nausea, vomiting, and diarrhea. He admits to drinking 2 beers on Friday evening and is adamant that he had no heavy alcohol consumption otherwise. He had been traveling to [place]. During that visit, he admits to drinking the tap water, but reports that he had no consumption of any poor water sources otherwise. He denies any recent antibiotic use, recent long distance travel, consumption of raw/undercooked foods, or recent sick contacts otherwise. He had nausea, vomiting, diarrhea up into the onset of midabdominal discomfort which started on Friday afternoon at approximately 2 PM. His symptoms progressively worsened over the past 5 hours prompting visit to the emergency department. During this episode of illness he denied any hematemesis, hematochezia, melena, hematuria. On evaluation today, the patient reports feeling better than initial presentation on Friday. He complains of some mild abdominal discomfort in the upper abdomen. He currently denies any headaches, dizziness, lightheadedness, chest pain, palpitations, shortness of breath, pleuritic pain, hemoptysis, itchy skin, or eye discoloration. Patient admits to occasional alcohol use. He denies any history of illicit substance use. Is no known family history of hypercholesterolemia that he is aware of. Past Medical/Surgical History Medical Problems: (1) No Known Active Medical Problems Family History Patient reports no known family medical history. Noncontributory Social History Smoking Status: Former Smoker Smokeless Tobacco Use: No Alcohol Use: occasionally Drug Use: none Marital Status: single Housing Status: lives with roommate Occupation Status: [employer] student Allergies Coded Allergies: No Known Allergies (Unverified , 01/13/18) Home Medications No Active Prescriptions or Reported Meds Current Inpatient Medications Current Inpatient Medications Medications (Trade) Dose Ordered Sig/Judith Route Start Time Stop Time Status Last Admin Dose Admin Ioversol (Optiray 320) 100 ml UD PRN IV 01/13/18 23:15 01/17/18 23:14 Lactated Ringer's 1,000 ml @ 100 mls/hr Q10H IV 01/14/18 04:00 02/13/18 03:59 01/16/18 01:19 100 MLS/HR Ondansetron HCl (Zofran Inj) 4 mg Q6H PRN IV 01/14/18 00:45 02/13/18 00:44 01/14/18 07:38 4 MG Hydromorphone HCl (Dilaudid Inj) 1 mg Q2HWA PRN IV 01/14/18 11:45 01/28/18 00:44 01/16/18 02:08 1 MG Acetaminophen (Tylenol Tab) 650 mg Q4H PO 01/16/18 00:00 02/15/18 00:00 01/16/18 04:27 650 MG Miscellaneous Information (Consult) 1 ea UD PRN N/A 01/16/18 01:00 02/15/18 00:59 Miscellaneous Information (Consult) 1 ea UD PRN N/A 01/16/18 01:00 02/15/18 00:59 Levalbuterol (Xopenex 0.63 Mg/ 3 Ml Neb) 0.63 mg Q4R INH 01/16/18 04:00 02/15/18 03:59 Piperacillin Sod/ Tazobactam Sod 3.375 gm/Sodium Chloride 115 ml @ 28.75 mls/ hr Q8H IV 01/16/18 06:00 01/26/18 05:59 Vancomycin HCl 1250 mg/Sodium Chloride 275 ml @ 125 mls/hr Q8H IV 01/16/18 10:00 01/26/18 09:59 Review of Systems A complete 10-point Review of Systems was discussed with the patient, with pertinent positives and negatives listed in the History of Present Illness. All remaining Review of Systems questions can be considered negative unless otherwise specified. Physical Exam Date Time Temp Pulse Resp B/P (MAP) Pulse Ox O2 Delivery O2 Flow Rate FiO2 01/16/18 04:00 Nasal Cannula 2.0 01/16/18 03:51 37.8 107 22 153/91 (111) 96 Room Air 01/16/18 01:30 37.1 117 18 152/86 (108) 91 Room Air 01/16/18 01:14 37.7 132 18 142/94 (110) 91 Room Air 01/16/18 00:41 37.7 132 18 91 01/15/18 23:30 110 01/15/18 23:26 39.1 16 153/90 (111) 93 Room Air 01/15/18 19:18 37.0 01/15/18 15:40 38.4 120 01/15/18 15:40 93 Room Air 01/15/18 15:23 37.2 110 18 137/84 (101) 93 Room Air 01/15/18 07:41 37.2 100 16 121/76 (91) 97 Room Air 01/15/18 07:20 Room Air VITAL SIGNS - Vital signs and nursing notes were reviewed. GENERAL - 22-year-old male appearing his stated age who is in no acute distress. Communicates well with provider and answers questions appropriately. HEAD - NC/AT. EYES - PERRL with EOMI bilaterally. Sclera anicteric. Palpebral conjunctiva pink and moist with no injection noted. EARS - No deformities of external structures noted on gross examination bilaterally. NOSE - Midline and without cyanosis. No epistaxis or purulent drainage noted. MOUTH/OROPHARYNX - Without perioral cyanosis. Buccal mucosa pink and moist and without leukoplakia. NECK - Neck with FROM. Supple to palpation. No nuchal rigidity. LUNGS - Chest wall symmetric without accessory muscle use, intercostals retractions, or central cyanosis. Normal vesicular breath sounds CTA B/L. No wheezes, rales, or rhonchi appreciated. CARDIAC - RRR with S1/S2. No murmur, rubs, or gallops appreciated. ABDOMEN - Abdominal contour protuberant with palpable ascites. Negative Travis' s or Rodriges Causey's Signs. BS normoactive all four quadrants. Moderate tenderness to palpation appreciated in the epigastrium. No guarding. No Rebound Tenderness. Negative Cao's. EXTREMITIES - No clubbing or peripheral cyanosis. No pretibial edema present. +3 /5 radial and dorsalis pedis pulses palpated throughout. PSYCH - A&Ox3 and cooperates fully with examiner. Pt is very pleasant and interacts well with examiner. Laboratory Results Last 24 Hours Test 01/15/18 05:21 01/15/18 16:48 01/16/18 02:13 01/16/18 04:33 White Blood Count 10.46 K/uL 9.81 K/uL 8.55 K/uL Red Blood Count 4.22 M/uL 4.16 M/uL 3.87 M/uL Hemoglobin 13.5 g/dL 13.4 g/dL 12.5 g/dL Hematocrit 39.2 % 38.6 % 35.6 % Mean Corpuscular Volume 92.9 fL 92.8 fL 92.0 fL Mean Corpuscular Hemoglobin 32.0 pg 32.2 pg 32.3 pg Mean Corpuscular Hemoglobin Concent 34.4 g/dl 34.7 g/dl 35.1 g/dl Platelet Count 146 K/uL 123 K/uL Mean Platelet Volume 8.9 fL 9.0 fL Neutrophils (%) (Auto) 83.8 % 83.3 % Lymphocytes (%) (Auto) 5.9 % 5.9 % Monocytes (%) (Auto) 9.7 % 10.1 % Eosinophils (%) (Auto) 0.3 % 0.3 % Basophils (%) (Auto) 0.1 % 0.1 % Neutrophils # (Auto) 8.77 K/uL 8.17 K/uL Lymphocytes # (Auto) 0.62 K/uL 0.58 K/uL Monocytes # (Auto) 1.01 K/uL 0.99 K/uL Eosinophils # (Auto) 0.03 K/uL 0.03 K/uL Basophils # (Auto) 0.01 K/uL 0.01 K/uL RDW Standard Deviation 41.9 fL 41.4 fL 41.4 fL RDW Coefficient of Variation 12.4 % 12.4 % 12.4 % Immature Granulocyte % (Auto) 0.2 % 0.3 % Immature Granulocyte # (Auto) 0.02 K/uL 0.03 K/uL Sodium Level 136 mmol/L 135 mmol/L 133 mmol/L Potassium Level 3.9 mmol/L 3.6 mmol/L 3.4 mmol/L Chloride Level 102 mmol/L 100 mmol/L 101 mmol/L Carbon Dioxide Level 29 mmol/L 28 mmol/L 29 mmol/L Anion Gap 5.0 mmol/L 7.0 mmol/L 3.0 mmol/L Blood Urea Nitrogen 11 mg/dl 9 mg/dl 6 mg/dl Creatinine 1.10 mg/dl 0.85 mg/dl 0.83 mg/dl Est Creatinine Clear Calc Drug Dose 100.2 ml/min 129.6 ml/min 144.1 ml/min Estimated GFR () 111.4 145.4 146.8 Estimated GFR (Non- 96.1 125.4 126.7 BUN/Creatinine Ratio 10.0 10.0 6.7 Random Glucose 93 mg/dl 78 mg/dl 88 mg/dl Calcium Level 7.9 mg/dl 8.0 mg/dl 7.6 mg/dl Total Bilirubin 3.2 mg/dl Direct Bilirubin 2.4 mg/dl 2.3 mg/dl Aspartate Amino Transf (AST/SGOT) 67 U/L 45 U/L Alanine Aminotransferase (ALT/SGPT) 35 U/L 29 U/L Alkaline Phosphatase 109 U/L Total Protein 5.7 gm/dl Albumin 2.6 gm/dl 2.2 gm/dl Bedside Glucose 100 mg/dl Prothrombin Time 10.4 SECONDS Prothromb Time International Ratio 1.0 Lipase 484 U/L Diagnostic Results Radiological imaging and reports were reviewed by myself. Radiologist's Interpretation as follows: ABDOMEN AND PELVIS CT WITH IV AND ORAL CONTRAST CT DOSE: 440.00 mGy.cm HISTORY: Follow-up study in a patient with acute pancreatitis. Concern for possible pancreatic necrosis or peripancreatic fluid collection ?pancreatic necrosis / pseudocyst formation TECHNIQUE: Multiaxial CT images of the abdomen and pelvis were performed following the use of intravenous and oral contrast. A dose lowering technique was utilized adhering to the principles of ALARA. COMPARISON STUDY: CT abdomen and pelvis 01/13/2018. FINDINGS: Interval development of moderate left and small right pleural effusions with dependent bibasilar consolidation suggesting compressive atelectasis. Indeterminate 5 mm nodule of the basal right lower lobe. There is no pneumatosis or pneumoperitoneum identified. Imaged inferior cardiac chambers are unremarkable. The gallbladder, spleen, and adrenal glands are unremarkable. Hepatic steatosis. Kidneys, ureters and bladder are within normal limits. Wall thickening of the bladder is likely secondary to partial distention. Prostate is within normal limits. Suggestion of small bilateral hydroceles. There is progressive interstitial and peripancreatic inflammatory changes with progressive mild abdominal pelvic ascites. No loculated pancreatic fluid collections or evidence of pancreatic process. There is homogeneous enhancement throughout the pancreas. The splenic vein and artery appear patent. Superior mesenteric vein is also patent as is the portal vein. No pancreatic ductal dilation. Aorta is normal in course and caliber. IVC is patent. No bulky adenopathy. Mildly prominent periaortic lymph nodes measuring up to 7 mm are likely reactive. Mildly prominent iliac chain lymph nodes are also seen which are subcentimeter in size. No bowel obstruction. There is mild dilation and wall thickening of the duodenum which is likely reactive. Normal appendix. Soft tissues are unremarkable. Noted the bones appear intact. IMPRESSION: 1. Progressive interstitial and peripancreatic inflammatory changes with increased amount of abdominal ascites is compatible with worsened uncomplicated acute pancreatitis. No loculated peripancreatic fluid collections or evidence of pancreatic necrosis. 2. Interval development of moderate left and small right pleural effusions with dependent bibasilar consolidation suggesting compressive atelectasis. 3. Mild wall thickening of the duodenum is likely reactive. 4. Hepatic steatosis. 5. Normal appendix. CHEST 2 VIEWS ROUTINE CLINICAL HISTORY: 22 years-old Male presenting with fever, eval for lower lobe pneumonia. TECHNIQUE: PA and lateral views of the chest were obtained. COMPARISON: None. FINDINGS: Cardiomediastinal silhouette normal. Dense opacity in the left lower lobe. Associated moderate left pleural effusion. No pneumothorax. Right lung and pleural space clear. Osseous structures normal. Upper abdomen normal. IMPRESSION: 1. Findings consistent with left lower lobe pneumonia with a moderate parapneumonic effusion. Contrast-enhanced chest CT to be considered for further evaluation as clinically indicated. Assessment & Plan (1) Ascites (2) Hepatic steatosis (3) Thrombocytopenia (4) Pneumonia (5) Parapneumonic effusion (6) Gastroenteritis (7) Acute pancreatitis Reason Critically Ill: 22-year-old male recently admitted for acute pancreatitis with progressively worsening symptoms including fevers, tachycardia , and development of ascites requiring close monitoring. Neuro - * CAM ICU: NEGATIVE * Pain: Dilaudid PRN Cardiac - * Tachycardia: * 2/2 febrile illness. * Monitor on telemetry. * No need for biomarkers at this point. Respiratory - * LEFT Lower Lobe Pneumonia w/ Parapneumonic Effusion: * ??Ascites as source of Parapneumonic effusion vs. other infectious source. * Currently on Zosyn/Vanc * Supplemental O2 PRN for compressive atelectasis. GI - * Pancreatitis, Ascites: * CT shows no pancreatic necrosis, abscess, or worsening pancreatitis otherwise. Biliary sludge noted. * ??Hypertriglyceridemia coupled w/ EtOH use and poor pancreatic clearing as source. * Will add Gallbladder US for ??biliary stone source. Will look at portal vein for completeness in the setting of ascites. * Agree with antibiotic coverage of SBP in the ascitic pt w/ a fever. * Will add PT/INR for evaluation of liver function. * Will add hepatitis panel in setting of recent gastrointestinal illness. * Will check Monospot w/ EBV testing as well. * Will defer any further autoimmune testing to GI. * Will add Stool Cultures/C. Diff w/ recent diarrheal illness. * Appreciate GI consult. * Will make Pt NPO for any possibility for the need of intervention. RENAL/LYTES - * Initially presenting with an NELL: * Resolved w/ IVF. * No significant electrolyte derangement. * Replace lytes appropriately. - * No need for Baltazar at this point.- ENDO - * No h/o DM or Thyroid Dz. * BSGs w/ ISS --> gtts per protocol. HEME - * Stable H&H. * Thrombocytopenia: * 381 --> 90 K/uL * Not on antiplatelet therapy. * Will check PT/INR w/ associated active liver dz. ID - * LEFT Lower Lobe Pneumonia; Ascites w/ Fevers: * Agree with Zosyn for dual purpose antibiotic coverage (i.e. Pulm/SBP). * Technically, patient did develop ??LLL PNA in the hospital setting, however, I am suspicious that the patient has parapneumonic fluid and CXR findings from ascitic migration through the diaphragm. * Will add ProCal/Lactate. * Will defer to GI for paracentesis recommendations. LINES/IV ACCESS - * PIVs intact. DVT PROPHYLAXIS - * Hold on Chemoprophylaxis 2/2 Thrombocytopenia. * SCDs I have personally spent 45 minutes of critical care time in the direct management of this patient. This is a life/limb threatening event. This includes time spent evaluating patient, direct bedside care, chart review, placing orders, interpretation of diagnostic studies, discussion with consultants, patient, and family members, as well as other required patient management activities. This time is exclusive of all separately billable procedures, and teaching time and separate from and in addition to any other critical care service time. Thank you for this consultation allow us to be part of this patient's care. Please refer to my attending physician's documentation for any further recommendations. Attending addendum, The patient was seen and examined independently, chart reviewed with the staff on rounds, agree with assessment and plan of my colleague Narciso Abraham. In summary, 22-year-old gentleman without past medical history presented to the hospital with acute pancreatitis. The patient has been hydrated with total of 7 L of fluid. The patient developed left-sided pleural effusion as well as minimal ascites mainly perihepatic and pelvic. His pancreas appeared to be slightly inflamed with stranding of the fat tissue around it. No obvious dilation of the common bile duct. The patient did have a quick abdominal ultrasound but did not have biliary ultrasound yet. Repeat CAT scan after admission revealed the pleural effusion on the left, adjacent compressive atelectasis on the. There is no evidence of pneumonia. The patient has no history of gallstones in the past, his triglycerides was elevated above than 300, but no genetic history in the family. The patient is nondrinker except for occasional alcohol ingestion. He denies any other medications or street drugs ingestion or use. His [id number] use only ibuprofen occasionally. Plan: 1. Continue with IV fluid. 2. Supportive care. 3. Be conservative with IV fluid to avoid third spacing. 4. The patient pain has been well controlled although he required total 13 doses of Dilaudid. 5. Oral intake with clear liquid. 6. Patient started on antibiotics, although it is controversial and acute pancreatitis. 7. No need to have serial lipase check. 8. Discussed with the mother who is a surgeon, I showed her also the films, and she is in agreement with the plan. 9. The mother requested transferring him to [facility]. 10. GI consult to evaluate for elevated LFTs and bilirubin, I am concerned about undetected gallstones occluding the pancreatic duct. 11.? MRCP. 12. Discussed with Dr. Gordon in regard of transferring the patient to [facility]. The patient will be transferred to regular floor first as he does not meet the criteria for ICU. 13. Case discussed with multiple status, with the family, appreciate all inputs , critical care time spent with patient was 45 minutes. Problem Qualifiers (1) Pneumonia: Pneumonia type: due to unspecified organism Laterality: left Lung location: lower lobe of lung Qualified Codes: J18.1 - Lobar pneumonia, unspecified organism (2) Acute pancreatitis: Pancreatitis type: unspecified pancreatitis type Acute pancreatitis complication: unspecified Qualified Codes: K85.90 - Acute pancreatitis without necrosis or infection, unspecified
[2018-01-16] MEDS: PIPERACILL/TAZOBAC IV 3.375 GM in NSS 100ML IV SCH ×3 (06:13→21:59)
--- NOTE | 2018-01-16 06:31 | DIAGNOSTIC IMAGING REPORT ---
LIMITED ABDOMINAL ULTRASOUND FOR ASCITES EVALUATION CLINICAL HISTORY: Ascites COMPARISON STUDY: No previous studies for comparison. FINDINGS: There is trace 4 quadrant ascites. Incidental note is made of bilateral pleural effusions. IMPRESSION: 1. Trace 4 quadrant ascites. 2. Bilateral pleural effusions Electronically signed by: Mitch Dockery M.D. 01/16/2018 6:29 AM Dictated Date/Time: 01/16/2018 6:28 AM
--- NOTE | 2018-01-16 07:16 | DIAGNOSTIC IMAGING REPORT ---
ABDOMINAL ULTRASOUND, RIGHT UPPER QUADRANT HISTORY: pancreatitis/eval for stone. COMPARISON: Abdomen and pelvis CT 01/15/2018. FINDINGS: Pancreas: Not well visualized due to the overlying bowel gas. The prior pancreas appears to be thickened and hypoechoic consistent with the patient's history of acute pancreatitis. Liver: The liver is echogenic consistent with fatty change. Small amount of perihepatic fluid. Gallbladder: No gallbladder wall thickening. No gallstones. Small amount of gallbladder sludge. CBD: 5 mm. Right kidney: No hydronephrosis. IMPRESSION: 1. The visualized portion of the pancreas appear to be thickened and hypoechoic consistent with the patient's history of acute pancreatitis. 2. Gallbladder sludge. No gallstones. 3. Hepatic steatosis. 4. Small amount of perihepatic fluid. Electronically signed by: Wagner Dominique M.D. 01/16/2018 7:15 AM Dictated Date/Time: 01/16/2018 7:13 AM
--- NOTE | 2018-01-16 07:44 | Progress Note ---
Progress Note Date of Service Jan 16, 2018. Progress Note At 0740 on 01/16/18, Dr. Desir attempted to call patient's mother via both contact numbers provided in Dr. Yun's progress note to update her on her son's status. There was no answer on either number.
[2018-01-16] MEDS ORDERED: POTASSIUM CHLORIDE 20 MEQ TABCR PO STA (08:33)
[2018-01-16 08:52] LABS: HEP C IGG 13 YRS+OLDER_RFLX NEG (NEG)
[2018-01-16] MEDS ORDERED: VANCOMYCIN IV 1,250 MG in SODIUM CHLORIDE 0.9% 250ML 250 ML IV SCH (10:00)
[2018-01-16] MEDS: ACETAMINOPHEN 325 MG TAB PO PRN ×2 (13:53→19:41)
--- NOTE | 2018-01-16 18:11 | Progress Note ---
Subjective Date of Service: Jan 16, 2018. Subjective Pt evaluation today including: conversation w/ patient, conversation w/ family , physical exam, chart review, lab review, review of studies, conversation w/ field consultant, review of inpatient medication list feeling better overall does feel a little short of breath stomach about the same to slightly better actually does feel a little hungry extensive d/w mother - updated on current dx/plans in pt's presence, answered all questions to the best of my abiltiy extensive time spent today in chart review, discussions of care wtih whole team greater than 30mins face to face Problem List Medical Problems: (1) Acute pancreatitis Status: Acute (2) Ascites Status: Acute (3) Gastroenteritis Status: Acute (4) Hepatic steatosis Status: Acute (5) Parapneumonic effusion Status: Acute (6) Pneumonia Status: Acute (7) Thrombocytopenia Status: Acute Review of Systems all other ROS otherwise negative except for as above Objective Vital Signs Date Time Temp Pulse Resp B/P (MAP) Pulse Ox O2 Delivery O2 Flow Rate FiO2 01/16/18 16:33 115 18 85 Room Air 01/16/18 16:03 96 Room Air 2.0 01/16/18 15:42 37.6 122 20 153/82 (105) 01/16/18 13:53 38.1 01/16/18 11:55 96 Room Air 01/16/18 11:42 37.2 82 18 93 2.0 01/16/18 11:12 82 18 93 Room Air 01/16/18 10:00 37.2 93 18 144/96 (112) 94 Room Air 01/16/18 08:00 37.2 100 24 136/98 (111) 96 Nasal Cannula 2.0 01/16/18 08:00 Nasal Cannula 2.0 01/16/18 07:05 77 18 98 Nasal Cannula 2.0 01/16/18 06:00 100 24 136/82 (100) 96 Nasal Cannula 2.0 01/16/18 04:00 Nasal Cannula 2.0 01/16/18 03:51 37.8 107 22 153/91 (111) 96 Room Air 01/16/18 01:30 37.1 117 18 152/86 (108) 91 Room Air 01/16/18 01:14 37.7 132 18 142/94 (110) 91 Room Air 01/16/18 00:41 37.7 132 18 91 4/19/18 23:30 110 01/15/18 23:26 39.1 16 153/90 (111) 93 Room Air 01/15/18 19:18 37.0 Physical Exam General Appearance: no apparent distress Eyes: EOMI ENT: hearing grossly normal Neck: trachea midline Respiratory/Chest: no respiratory distress, no accessory muscle use, + pertinent finding (diminished base L with muffled sounds e-a) Abdomen: soft, + distended (mild/moderate w epigastric ttp same as yesterday voluntary guarding only) Extremities: normal range of motion Neurologic/Psychiatric: showroom executive director II-XII nml as tested, alert, normal mood/affect Skin: normal color, warm/dry Laboratory Results Last 24 Hours Test 01/16/18 02:13 01/16/18 04:33 01/16/18 06:18 01/16/18 07:56 Bedside Glucose 100 mg/dl 88 mg/dl White Blood Count 8.55 K/uL Red Blood Count 3.87 M/uL Hemoglobin 12.5 g/dL Hematocrit 35.6 % Mean Corpuscular Volume 92.0 fL Mean Corpuscular Hemoglobin 32.3 pg Mean Corpuscular Hemoglobin Concent 35.1 g/dl Platelet Count 90 K/uL Mean Platelet Volume 8.9 fL Neutrophils (%) (Auto) 75.3 % Lymphocytes (%) (Auto) 10.1 % Monocytes (%) (Auto) 13.6 % Eosinophils (%) (Auto) 0.5 % Basophils (%) (Auto) 0.1 % Neutrophils # (Auto) 6.45 K/uL Lymphocytes # (Auto) 0.86 K/uL Monocytes # (Auto) 1.16 K/uL Eosinophils # (Auto) 0.04 K/uL Basophils # (Auto) 0.01 K/uL RDW Standard Deviation 41.4 fL RDW Coefficient of Variation 12.4 % Immature Granulocyte % (Auto) 0.4 % Immature Granulocyte # (Auto) 0.03 K/uL Platelet Estimate DECREASED Prothrombin Time 10.4 SECONDS Prothromb Time International Ratio 1.0 Sodium Level 133 mmol/L Potassium Level 3.4 mmol/L Chloride Level 101 mmol/L Carbon Dioxide Level 29 mmol/L Anion Gap 3.0 mmol/L Blood Urea Nitrogen 6 mg/dl Creatinine 0.83 mg/dl Est Creatinine Clear Calc Drug Dose 144.1 ml/min Estimated GFR () 146.8 Estimated GFR (Non- 126.7 BUN/Creatinine Ratio 6.7 Random Glucose 88 mg/dl Calcium Level 7.6 mg/dl Total Bilirubin 3.4 mg/dl Direct Bilirubin 2.3 mg/dl Aspartate Amino Transf (AST/SGOT) 45 U/L Alanine Aminotransferase (ALT/SGPT) 29 U/L Alkaline Phosphatase 108 U/L Total Protein 5.4 gm/dl Albumin 2.2 gm/dl Globulin 3.2 gm/dl Albumin/Globulin Ratio 0.7 Lipase 484 U/L Hepatitis B Surface Antigen NEG Hepatitis C Antibody NEG Monoscreen NEG Lactic Acid Level 1.4 mmol/L Procalcitonin 1.88 ng/ml Test 01/16/18 16:29 Assessment and Plan Acute Pancreatitis, unknown eitology/SIRS initially of non-infectous origin with acute organ dysfunction (NELL--resolved) - Alcohol level < 3,urine tox neg, Triglycerides 340, +recent viral illness, + gallbladder sludge - Clear liquids, IVF w/ LR - Dilaudid 1mg q2 IV prn pain - Zofran IV q6h prn nausea - fortunately repeat CT did not show necrosis or pseudocyst - and worsening clinical picture apepars to have been from pneumonia - GI consult HAP -rather striking L lung silhoutte sign, sl SOB, lung exam findings c/w small pneumonia -likely initially SIRS from pancreatitis, faded into sirs from sepsis from pneumonia -current abx will suffice - vanco/zosyn - can hopefully narrow as he improves ARF (present on admission) -due to pancreatitis, improved w fluids SIRS -see above, initially pancreatitis SIRS, now sepsis from pneumonia Impaired fasting glucose - likely secondary to abnormal pancreatic function, improving DVTP: SCDs Code: Full Dispo: Med/surg
[2018-01-16] MEDS ORDERED: ALBUMIN HUMAN 25% 12.5 GM/50 ML VIAL IV ONE (20:30)
[2018-01-16 20:36] LABS: INFLUENZA B ANTIGEN Neg for Influ B (NEG)
[2018-01-16] MEDS ORDERED: VANCOMYCIN IV 1,750 MG in SODIUM CHLORIDE 0.9% 500ML 500 ML IV ONE (20:45)
[2018-01-16] MEDS ORDERED: PANTOprazole INJ 40 MG in SYRINGE 0 ML IV ONE (21:00)
[2018-01-16] MEDS: NSS + 20MEQ KCL 1000ML 1,000 ML IV SCH (21:27)
--- NOTE | 2018-01-16 21:51 | Pharmacy Progress Note ---
Pharmacy Abx Dose Short Note Date of Service Jan 16, 2018. Assessment & Plan Assessment 22 year old male ordered Vancomycin by Dr. Jensen. Pt being treated for pancreatitis with possible pneumonia/SIRS. Day # 1 of antimicrobial therapy. * Blood cultures pending. * MRSA nasal swab negative. * Renal function at baseline * Pt also on Zosyn, ordered by Dr. Desir Plan Vancomycin * Loading dose: 1750mg (~23)IV x 1 * Maintenance dose: 1250mg (15mg/kg) IV q 8 hours * Goal trough level : 15 to 20 mcg/mL * Trough level ordered for: 01/18 @0330 Zosyn * Continue 3.375 gm IV q 8 hours Pharmacy will continue to follow and will adjust dose/frequency as necessary. Thank you.
--- NOTE | 2018-01-16 23:22 | GASTROINTESTINAL CONSULTATION ---
DATE OF CONSULTATION: 01/16/2018 CHIEF COMPLAINT: Acute pancreatitis. HISTORY OF PRESENT ILLNESS: Mr. 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 Recently, the patient had experienced flu-like symptoms that preceded the onset of this abdominal pain, nausea, vomiting, and identification of pancreatitis by a few days. These included respiratory symptoms. He was not sure if he had a fever, but did have cough and chills. His girlfriend also had similar symptoms and was actually having acute respiratory illness as well. The patient had 2-3 beers on the evening before the onset of this, but he does not report heavy alcohol use. He denies any significant NSAID use, aspirin. During his hospital course, the patient had the presence of an elevated white count, hemoconcentration, and lipase of approximately 4100. On CT scan, there was evidence of non-necrotizing pancreatitis with inflammatory peripancreatic stranding and presumed sludge in the gallbladder with steatosis. His pancreas enzyme maintained a stable pattern yesterday, but today is at 484. On admission, his LFTs showed normal total and direct bilirubin, AST of 113, ALT 91, alkaline phosphatase 75, and lipase 4171. Following this on 01/14, his transaminase did show improvement as did his bilirubin. The patient reports no significant past medical or surgical history and takes no chronic home medications. SOCIAL HISTORY: The patient denies tobacco and only occasionally uses alcoholic beverages by his history. 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 FAMILY HISTORY: He has no family history of pancreatic or gallbladder disorders according to the patient and his mother. REVIEW OF SYSTEMS: Otherwise noncontributory based on 13-point exam except for mentioned above. He is unaware of any prior liver, pancreas, lipid, blood pressure, endocrine, or gastrointestinal illnesses prior to this admission. CURRENT MEDICATIONS: In the hospital at this time include Zosyn (he had earlier been on vancomycin), levalbuterol inhaler, hydromorphone for pain, lactated Ringer's IV. ALLERGIES: He has no known drug allergies. PHYSICAL EXAMINATION: Today, VITAL SIGNS: Currently, heart rate is 115, respirations 18, blood pressure 153/82. He was 96% on 2 liters, but fell to 85% on room air. GENERAL: Patient is awake, alert, and oriented in mild abdominal and respiratory distress. The patient is accompanied by his mother. The patient is awake and oriented x3. HEART: Normal S1, S2, tachycardic. LUNGS: Showed decreased breath sounds at both bases, although wheezes are not identified. NECK: There is no cervical or supraclavicular adenopathy. I do not appreciate thyromegaly. ABDOMEN: Soft, firm throughout the abdomen, mostly in the upper abdomen. There is tenderness in the left side of the abdomen and epigastrium without rebound or guarding. There are positive bowel sounds noted. I do not appreciate hepatomegaly. There are no abdominal or hepatic bruits. There are positive bowel sounds. EXTREMITIES: Without clubbing, cyanosis, or edema. RECTAL: Deferred. LABORATORY STUDIES: In addition to those mentioned above include today a potassium of 3.4, BUN and creatinine are 6 and 0.83, total bilirubin 3.4, direct 2.3, AST 45, ALT 29, alkaline phosphatase 108, albumin is low at 2.2, lipase is down to 484. Yesterday, his total and direct bilirubin were 3.2 and 2.4, AST 67, alkaline phosphatase 109, ALT 35. White blood cell count has remained in the normal range over the past 2 days and is currently 8.5, hemoglobin is 12.5, MCV 92, platelets have drifted down to 90,000 (the patient is not on any heparin or Lovenox). IMAGING STUDIES: On admission showed a CT scan that showed peripancreatic stranding, inflammation consistent with acute pancreatitis without loculated fluid collections or necrosis. There is fatty change to the liver as well as suspicion of gallbladder sludge without bile duct dilation or gallstones. His repeat imaging studies showed progressive interstitial and peripancreatic inflammatory change with progression of mild abdominal pelvic ascites. Again, there is no evidence for loculated effusions. There was a homogeneous enhancement throughout the pancreas. The splenic vein and artery are patent. There is no pancreatic ductal dilation. There is evidence of the interim development of moderate left and small right pleural effusions with dependent bibasilar consolidation suggesting compressive atelectasis. There again fatty liver is identified. Chest x-ray also suggested a consolidation in the left lobe of the liver along with effusion. Ultrasound and repeat ultrasound again showed sludge in the gallbladder and 4-quadrant trace ascites noted. MICROBIOLOGY: Blood cultures are pending from 01/15/2018. IMPRESSION AND PLAN: Mr. Biggs is a 22-year-old male with symptoms of acute onset of pancreatitis that followed a respiratory flu-like syndrome several days earlier, which was also shared by his girlfriend who had significant respiratory features. The differential diagnosis includes atypical pneumonia that may be responsible for not only the flu and respiratory illnesses, but the pancreatitis along with viral influenza as a culprit for the pancreatitis. Although, LFTs did not show a pattern consistent with gallstone pancreatitis initially, bilirubin has drifted up, although transaminase and alkaline phosphatase remain normal and a biliary obstruction is not suspected presently, particularly in the absence of duct dilation. Possible pneumonia versus atelectasis and bibasilar pleural effusions may represent a sympathetic fluid accumulation from pancreatitis, although pneumonia needs to be excluded as well. I made the following recommendations: I have ordered assessment for influenza A and B, legionella and mycoplasma to exclude these as causes. There was an elevation of his triglyceride level on admission and this should be repeated at some point to ensure that they do not remain elevated. The triglyceride was 340. Cholesterol was normal at 81. There is no history for alcoholic-induced pancreatitis and I would not imagine this degree of hypertriglyceridemia to be a culprit in causing acute pancreatitis. We will arrange for an MRCP tonight given the increase in bilirubin, although I suspect this is part of the acute inflammatory and infectious process and may result in a small component of hemolysis or possibly DIC given the patient's low platelet count. This may also represent a response to a viral insult. Antelope spot was negative, although other markers are pending. Would continue with IV fluids, maintain good hydration, although cautious with over hydration given his respiratory status, pleural effusions, and ascites. If atypical or viral pneumonia is suspected and potentially an etiology for the patient's acute pancreatitis, would consider coverage of these agents, particularly the atypicals, although if needed consultation with infectious disease may be prudent. Would continue to minimize oral intake at the present time with only small amounts of clears provided the patient does not experience any discomfort, but would not advance the diet anything beyond this and maintain oral intake volumes to small amounts daily until the patient demonstrates continued resolution of his pain, lipase, and his overall status. Case discussed with Dr. Alberto. Dr. Souza will be covering this weekend for continued care. At some point, the patient will likely need cholecystectomy, followup of his lipid panel to ensure that this is not a culprit. All questions answered for the patient and his mother. DEAN
--- NOTE | 2018-01-16 23:38 | DIAGNOSTIC IMAGING REPORT ---
MRCP CLINICAL HISTORY: Elevated bilirubin. Pancreatitis. COMPARISON STUDY: Abdominal ultrasound dated 01/16/2018. Abdominal CT dated 01/15/2018. TECHNIQUE: Abdominal MRCP is performed utilizing various T2-weighted sequences in the axial and coronal planes. IV contrast was not administered for this examination. 3-D reformats are created and assessed. FINDINGS: The gallbladder is distended but otherwise normal in appearance. No gallstones are identified. There is minimal intrahepatic biliary ductal dilatation. The common bile duct is normal in caliber and measures up to 5 mm. There are no filling defects identified to suggest choledocholithiasis. The pancreatic duct is normal in caliber. Pancreas divisum is noted. There are small to moderate bilateral pleural effusions. The hepatic parenchyma is normal as imaged. A small volume of ascites is seen in the upper abdomen. There is pancreatic stranding and fluid consistent with the reported history of pancreatitis. The spleen, adrenal glands, and kidneys are normal as visualized. No bowel obstruction is identified. The abdominal aorta is normal in caliber. The visualized bony structures demonstrate normal marrow signal intensity. There is mild body wall edema. IMPRESSION: 1. No gallstones are identified and there is no evidence of choledocholithiasis. 2. Pancreas divisum is identified. 3. Findings consistent with acute pancreatitis. 4. There are bilateral pleural effusions as well as abdominal ascites. Dictated: 01/16/2018 11:20 PM Transcribed: 01/16/2018 11:38 PM Shirley Electronically signed by: Mehul Bob M.D. 01/16/2018 11:59 PM Dictated Date/Time: 01/16/2018 11:20 PM
[2018-01-17] VITALS (12 sets, daily range): BP systolic 132–149; BP diastolic 79–96; PULSE 96–122; TEMP 36.6–38.8; O2SAT 90–99
[2018-01-17] MEDS: LORAZEPAM 2 MG/ML 1 ML VIAL IV PRN ×2 (00:44→23:11)
[2018-01-17] MEDS ORDERED: NURSING VERBAL MED ORDER ONE ×2 (00:45→03:00)
[2018-01-17] MEDS ORDERED: LORAZEPAM INJ 0.5 MG in SYRINGE 0.75 ML IV PRN ×2 (00:45→03:00)
[2018-01-17] MEDS ORDERED: VANCOMYCIN TROUGH ONE (01:30)
[2018-01-17] MEDS: HYDROmorphone INJ 2 MG/ML SYR/VIAL IV PRN ×8 (02:44→21:27)
[2018-01-17] MEDS ORDERED: LORAZEPAM 2 MG/ML 1 ML VIAL IV PRN (03:00)
[2018-01-17] MEDS: LEVALBUTEROL 0.63MG/3 ML NEB INH SCH ×5 (03:12→19:37)
[2018-01-17] MEDS: VANCOMYCIN IV 1,250 MG in SODIUM CHLORIDE 0.9% 250ML 250 ML IV SCH ×3 (04:39→20:05)
[2018-01-17] MEDS: PIPERACILL/TAZOBAC IV 3.375 GM in NSS 100ML IV SCH ×3 (05:35→23:12)
[2018-01-17 06:48] LABS: CREATININE 0.73 mg/dl (0.60-1.40)
[2018-01-17] MEDS: ACETAMINOPHEN 325 MG TAB PO PRN ×2 (07:42→15:21)
[2018-01-17] MEDS: PANTOprazole INJ 40 MG in SYRINGE 0 ML IV SCH (07:49)
[2018-01-17] MEDS ORDERED: VANCOMYCIN IV 1,750 MG in SODIUM CHLORIDE 0.9% 500ML 500 ML IV ONE (08:30)
--- NOTE | 2018-01-17 09:23 | Family Medicine Progress Note ---
Progress Note Date of Service Jan 17, 2018. Subjective Pt evaluation today including: conversation w/ patient Found patient resting comfortably in bed. Says his abdominal pain is slowly improving, around 7/10 on pain scale, improved from yesterday. Says SOB is better than yesterday as well. No difficulty with tolerating clear diet, denies N/V or worse abdominal symptoms. Denies cough. No particular acute concerns. Constitutional: + fever, No sweats Respiratory: + shortness of breath, No cough Cardiovascular: No chest pain, No edema Abdomen: + pain, + nausea Medications Current Inpatient Medications Medications (Trade) Dose Ordered Sig/Judith Route Start Time Stop Time Status Last Admin Dose Admin Ioversol (Optiray 320) 100 ml UD PRN IV 01/13/18 23:15 01/17/18 23:14 Ondansetron HCl (Zofran Inj) 4 mg Q6H PRN IV 01/14/18 00:45 02/13/18 00:44 01/14/18 07:38 4 MG Hydromorphone HCl (Dilaudid Inj) 1 mg Q2HWA PRN IV 01/14/18 11:45 01/28/18 00:44 01/17/18 07:48 1 MG Miscellaneous Information (Consult) 1 ea UD PRN N/A 01/16/18 01:00 02/15/18 00:59 Levalbuterol (Xopenex 0.63 Mg/ 3 Ml Neb) 0.63 mg Q4R INH 01/16/18 04:00 02/15/18 03:59 01/17/18 07:28 0.63 MG Piperacillin Sod/ Tazobactam Sod 3.375 gm/Sodium Chloride 115 ml @ 28.75 mls/ hr Q8H IV 01/16/18 06:00 01/26/18 05:59 01/17/18 05:35 28.75 MLS/HR Acetaminophen (Tylenol Tab) 650 mg Q4 PRN PO 01/16/18 12:00 02/15/18 00:00 01/17/18 07:42 650 MG Miscellaneous Information (Consult) 1 ea UD PRN N/A 01/16/18 20:30 02/15/18 20:29 Pantoprazole Sodium 40 mg/ Syringe 10 ml @ 5 mls/min DAILY@11 IV 01/17/18 11:00 02/16/18 10:59 01/17/18 07:49 5 MLS/MIN Potassium Chloride/Sodium Chloride 1,000 ml @ 100 mls/hr Q10H IV 01/16/18 21:00 02/15/18 20:59 01/16/18 21:27 100 MLS/HR Vancomycin HCl 1250 mg/Sodium Chloride 275 ml @ 125 mls/hr Q8H IV 01/17/18 04:00 01/26/18 03:59 01/17/18 04:39 125 MLS/HR Lorazepam 0.5 mg/ Syringe 1 ml @ 1 mls/min HS PRN IV 01/17/18 00:45 02/16/18 00:44 Lorazepam (Ativan Inj) 0.5 mg HS PRN IV 01/17/18 00:45 02/16/18 00:44 01/17/18 00:44 0.5 MG Lorazepam 0.5 mg/ Syringe 1 ml @ 1 mls/min Q6H PRN IV 01/17/18 03:00 02/16/18 02:59 Lorazepam (Ativan Inj) 0.5 mg Q6H PRN IV 01/17/18 03:00 02/16/18 02:59 Objective Vital Signs Date Time Temp Pulse Resp B/P (MAP) Pulse Ox O2 Delivery O2 Flow Rate FiO2 01/17/18 08:00 38.0 116 20 136/82 (100) 90 Nasal Cannula 2.0 01/17/18 07:29 96 18 90 Room Air 01/17/18 04:40 102 18 96 Nasal Cannula 2.0 01/17/18 04:29 37.4 109 18 149/96 (113) 97 Nasal Cannula 2.0 01/17/18 00:14 37.6 106 19 136/79 (98) 91 Room Air 01/16/18 23:15 Nasal Cannula 2.0 01/16/18 20:10 96 Nasal Cannula 2.0 01/16/18 19:36 39.4 130 16 155/98 (117) 91 Room Air 01/16/18 16:33 115 18 85 Room Air 01/16/18 16:03 96 Room Air 2.0 01/16/18 15:42 37.6 122 20 153/82 (105) 01/16/18 13:53 38.1 01/16/18 11:55 96 Room Air 01/16/18 11:42 37.2 82 18 93 2.0 01/16/18 11:12 82 18 93 Room Air 01/16/18 10:00 37.2 93 18 144/96 (112) 94 Room Air Physical Exam Notes: General Appearance: Awake, alert & oriented, comfortable in general, NAD. CV: +S1S2 regular tachycardia, no murmur. No peripheral edema. Pulm: Mildly diminished in left base. Otherwise clear and without respiratory distress. NC in place. Abdomen: +BS, firm throughout, moderately distended, with tenderness to palpation and percussion in the left mario-abdomen. No palpable ascites. [Per attending's re-eval, exam is perhaps minimally improved from yesterday.] Extremities: No pedal edema or calf tenderness. Moving all extremities naturally and easily. Neuro: No gross neuro deficits. Lines: PIV Laboratory Results 01/17/18 05:52 Test 01/16/18 23:19 01/17/18 05:52 Bedside Glucose 99 mg/dl (70-99) Est Creatinine Clear Calc Drug Dose 163.9 ml/min Estimated GFR () > 150.0 Estimated GFR (Non- 133.5 Assessment and Plan 22 yo male admitted on [id number] for acute pancreatitis. Acute Pancreatitis: Unknown eitology/SIRS initially of non-infectious origin with acute organ dysfunction (NELL--resolved) -- Alcohol level < 3,urine tox neg, Triglycerides 340, +recent viral illness, + gallbladder sludge -- IVF w/ NS and KCl. Will advance diet to full liquids today and monitor symptoms. -- Dilaudid 1 mg q2h IV prn pain. Zofran IV q6h prn nausea - GI consulted. Multiple serological tests pending. MRCP noted findings c/w acute pancreatitis, bilateral effusions, and abdominal ascites. Continue IVF, but will monitor overall status. Hospital-acquired pneumonia: Rather striking left lung silhouette sign, sl SOB, lung exam findings c/w small pneumonia -- likely initially SIRS from pancreatitis, faded into sirs from sepsis from pneumonia -- current abx will suffice - vanco/zosyn - can hopefully narrow as he improves - Small pleural effusions seen on imaging. Will monitor pulm status, but for now need IVF for the pancreatitis. Acute renal failure (present on admission): Initial Cr 1.72, down to 0.73 after IVF. SIRS: See above, initially pancreatitis SIRS, now sepsis from pneumonia. Patient's ongoing fever is likely related to his pneumonia. We will watch to see if this resolves over the next 24 hours as antibiotics take effect. 19Apr BCx 2 show no growth to date. 20Apr UCx results pending. Impaired fasting glucose: Likely secondary to abnormal pancreatic function, improving. DVT prophy: SCDs Code: Full Dispo: Med/surg Resident Physician Supervision Note: I interviewed and examined the patient. Discussed with Dr. Mcmillan and agree with findings and plan as documented in the note. Any exceptions or clarifications are listed here: None Documented By: Jaya Gordon feeling better - abdominal pain waxes and wanes but improving breathing better still needing O2 some some fevers last night and lesser but again this AM vitals noted nad fatigued no diaphoresis. L lower lung diminished BS but no e- a. no r/r/w. abd soft mod distention still diffuse tender epigastric > LUQ > elsehwere but less tender than yesterday updated mother on second visit in pt's presence acute idiopathic pancreatitis - ?divisum + sludge as culprit? improving. continue supportive care ileus - from above and (necessary) pain meds - supportive care HAP - zosyn, vanco -- can likely scale back abx in near future, continue supportive care SIRS - was multifactorial - initial arc of SIRS due to pancreatitis, then, before this had totally resolved, he developed a secondary arc of SIRS from HAP -- this is what is likely causing current intermittent fever - continue to follow. certainly if he' showing a SIRS that's failing to resolve or starts to worsen, then yet another cause of SIRS would need to be investigated, but at this point he is clinically showing good improvement Resident Tracking Resident Involvement: Resident Care Provided Care Provided: Adult Hospital Medicine (inpatient)
[2018-01-17] MEDS: NSS + 20MEQ KCL 1000ML 1,000 ML IV SCH ×2 (13:51→16:09)
--- NOTE | 2018-01-17 13:56 | Gastroenterology Progress Note ---
Progress Note Date of Service: Jan 17, 2018 Subjective Pt evaluation today including: conversation w/ patient, conversation w/ family (mother in room for h and P), physical exam, chart review, lab review, review of studies, review of inpatient medication list cc f/u abd pain, pancreatitis HPI Pts having gradual improvement in abd pain but still can be 7/10. No new complaints. MRCP negative. Review of Systems Respiratory: No shortness of breath Cardiac: No chest pain Medications Current Inpatient Medications Medications (Trade) Dose Ordered Sig/Judith Route Start Time Stop Time Status Last Admin Dose Admin Ioversol (Optiray 320) 100 ml UD PRN IV 01/13/18 23:15 01/17/18 23:14 Ondansetron HCl (Zofran Inj) 4 mg Q6H PRN IV 01/14/18 00:45 02/13/18 00:44 01/14/18 07:38 4 MG Hydromorphone HCl (Dilaudid Inj) 1 mg Q2HWA PRN IV 01/14/18 11:45 01/28/18 00:44 01/17/18 12:10 1 MG Miscellaneous Information (Consult) 1 ea UD PRN N/A 01/16/18 01:00 02/15/18 00:59 Levalbuterol (Xopenex 0.63 Mg/ 3 Ml Neb) 0.63 mg Q4R INH 01/16/18 04:00 02/15/18 03:59 01/17/18 11:11 0.63 MG Piperacillin Sod/ Tazobactam Sod 3.375 gm/Sodium Chloride 115 ml @ 28.75 mls/ hr Q8H IV 01/16/18 06:00 01/26/18 05:59 01/17/18 05:35 28.75 MLS/HR Acetaminophen (Tylenol Tab) 650 mg Q4 PRN PO 01/16/18 12:00 02/15/18 00:00 01/17/18 07:42 650 MG Miscellaneous Information (Consult) 1 ea UD PRN N/A 01/16/18 20:30 02/15/18 20:29 Pantoprazole Sodium 40 mg/ Syringe 10 ml @ 5 mls/min DAILY@11 IV 01/17/18 11:00 02/16/18 10:59 4/21/18 07:49 5 MLS/MIN Potassium Chloride/Sodium Chloride 1,000 ml @ 100 mls/hr Q10H IV 01/16/18 21:00 02/15/18 20:59 01/16/18 21:27 100 MLS/HR Vancomycin HCl 1250 mg/Sodium Chloride 275 ml @ 125 mls/hr Q8H IV 01/17/18 04:00 01/26/18 03:59 01/17/18 12:15 125 MLS/HR Lorazepam 0.5 mg/ Syringe 1 ml @ 1 mls/min HS PRN IV 01/17/18 00:45 02/16/18 00:44 Lorazepam (Ativan Inj) 0.5 mg HS PRN IV 01/17/18 00:45 02/16/18 00:44 01/17/18 00:44 0.5 MG Lorazepam 0.5 mg/ Syringe 1 ml @ 1 mls/min Q6H PRN IV 01/17/18 03:00 02/16/18 02:59 Lorazepam (Ativan Inj) 0.5 mg Q6H PRN IV 01/17/18 03:00 02/16/18 02:59 Objective Vital Signs Date Time Temp Pulse Resp B/P (MAP) Pulse Ox O2 Delivery O2 Flow Rate FiO2 01/17/18 12:00 Nasal Cannula 2.0 01/17/18 11:18 36.6 112 20 132/82 (99) 92 01/17/18 11:12 105 18 96 Nasal Cannula 2.0 01/17/18 08:00 38.0 116 20 136/82 (100) 90 Nasal Cannula 2.0 01/17/18 08:00 Nasal Cannula 2.0 01/17/18 07:29 96 18 90 Room Air 01/17/18 04:40 102 18 96 Nasal Cannula 2.0 01/17/18 04:29 37.4 109 18 149/96 (113) 97 Nasal Cannula 2.0 01/17/18 00:14 37.6 106 19 136/79 (98) 91 Room Air 01/16/18 23:15 Nasal Cannula 2.0 01/16/18 20:10 96 Nasal Cannula 2.0 01/16/18 19:36 39.4 130 16 155/98 (117) 91 Room Air 01/16/18 16:33 115 18 85 Room Air 01/16/18 16:03 96 Room Air 2.0 01/16/18 15:42 37.6 122 20 153/82 (105) 01/16/18 13:53 38.1 Physical Exam General Appearance: WD/WN, no apparent distress Respiratory/Chest: lungs clear, no respiratory distress Cardiovascular: regular rate, rhythm, no edema Abdomen: normal bowel sounds, no organomegaly, + guarding (epigastric/LUQ but no rebound) Neurologic/Psych: dye expert II-XII nml as tested, oriented x 3 Skin: normal color Laboratory Results Last 24 Hours Test 01/16/18 23:19 01/17/18 05:52 Bedside Glucose 99 mg/dl Creatinine 0.73 mg/dl Est Creatinine Clear Calc Drug Dose 163.9 ml/min Estimated GFR () > 150.0 Estimated GFR (Non- 133.5 Assessment and Plan abd pain--secondary to pancreatitis pancreatitis elevated lipids Etiology of pancreatitis not clear. Viral is possible. GB sludge passing through bile duct possible but no current blockage of bile duct. Continue supportive care. Lipids need followed as outpt.
[2018-01-17] MEDS ORDERED: DOCUSATE SODIUM 100 MG CAP PO ONE (18:15)
[2018-01-17] MEDS ORDERED: SIMETHICONE 80 MG CHEW PO PRN (18:15)
[2018-01-17] MEDS ORDERED: ACETAMINOPHEN 500 MG TAB PO STA (21:07)
[2018-01-17] MEDS: DOCUSATE SODIUM 100 MG CAP PO SCH (23:12)
[2018-01-18] VITALS (15 sets, daily range): BP systolic 129–144; BP diastolic 68–93; PULSE 102–144; TEMP 37.2–39.3; O2SAT 90–98
[2018-01-18] MEDS: LEVALBUTEROL 0.63MG/3 ML NEB INH SCH ×6 (00:07→20:07)
[2018-01-18] MEDS: HYDROmorphone INJ 2 MG/ML SYR/VIAL IV PRN ×3 (01:33→07:45)
[2018-01-18] MEDS: NSS + 20MEQ KCL 1000ML 1,000 ML IV SCH ×3 (03:00→23:00)
[2018-01-18] MEDS ORDERED: VANCOMYCIN TROUGH ONE (03:30)
[2018-01-18 03:46] LABS: BASO % 0.1 %; BASO ABS # 0.01 K/uL (0-0.2); EOS % 1.7 %; EOS ABS # 0.18 K/uL (0-0.5); HEMATOCRIT 32.1 % (42-52); HEMOGLOBIN 11.1 g/dL (14.0-18.0); IG# 0.05 K/uL (0.00-0.02); LYMPH % 8.6 %; LYMPH ABS # 0.91 K/uL (1.2-3.4); MEAN CELL VOLUME 92.8 fL (80-100); MEAN CORPUSCULAR HEMOGLOBIN 32.1 pg (25-34); MEAN CORPUSCULAR HGB CONC 34.6 g/dl (32-36); MEAN PLATELET VOLUME 9.8 fL (7.4-10.4); MONO % 19.4 %; MONO ABS # 2.06 K/uL (0.11-0.59); NEUT % 69.7 %; NEUT ABS # 7.39 K/uL (1.4-6.5); NUCLEATED RED BLOOD CELL ABS 0.03 K/uL (0-0); PLATELET COUNT 123 K/uL (130-400); RED CELL DISTRIBUTION WIDTH CV 12.8 % (11.5-14.5); RED CELL DISTRIBUTION WIDTH SD 43.3 fL (36.4-46.3)
[2018-01-18 04:10] LABS: ALBUMIN 2.3 gm/dl (3.4-5.0); ALT/SGPT 20 U/L (12-78); AST/SGOT 24 U/L (15-37); BLOOD UREA NITROGEN 4 mg/dl (7-18); CALCIUM 8.2 mg/dl (8.5-10.1); CARBON DIOXIDE 27 mmol/L (21-32); CREATININE 0.73 mg/dl (0.60-1.40); GLUCOSE 88 mg/dl (70-99); LIPASE 211 U/L (73-393); POTASSIUM 3.7 mmol/L (3.5-5.1); SODIUM 138 mmol/L (136-145)
[2018-01-18] MEDS: VANCOMYCIN IV 1,250 MG in SODIUM CHLORIDE 0.9% 250ML 250 ML IV SCH (04:20)
[2018-01-18 04:21] LABS: ALKALINE PHOSPHATASE 81 U/L (45-117); TOTAL PROTEIN 5.9 gm/dl (6.4-8.2)
[2018-01-18] MEDS: PIPERACILL/TAZOBAC IV 3.375 GM in NSS 100ML IV SCH ×3 (06:16→23:02)
[2018-01-18] MEDS: DOCUSATE SODIUM 100 MG CAP PO SCH ×2 (07:39→20:06)
[2018-01-18] MEDS: ACETAMINOPHEN 325 MG TAB PO PRN (07:44)
--- NOTE | 2018-01-18 09:12 | Family Medicine Progress Note ---
Progress Note Date of Service Jan 18, 2018. Subjective Pt evaluation today including: conversation w/ patient Found patient sitting up in the bed, typing on his laptop. Says that his breathing is a bit improved but that his abdomen feels the same as yesterday. Is able to tolerate his PO intake without vomiting. Says pain is controlled with IV medications. No other acute patient concerns. Constitutional: + fever Respiratory: + cough, No shortness of breath Cardiovascular: No chest pain, No edema Abdomen: + pain, + nausea, No vomiting, No diarrhea Medications Current Inpatient Medications Medications (Trade) Dose Ordered Sig/Judith Route Start Time Stop Time Status Last Admin Dose Admin Ondansetron HCl (Zofran Inj) 4 mg Q6H PRN IV 01/14/18 00:45 02/13/18 00:44 01/14/18 07:38 4 MG Hydromorphone HCl (Dilaudid Inj) 1 mg Q2HWA PRN IV 01/14/18 11:45 01/28/18 00:44 01/18/18 07:45 1 MG Miscellaneous Information (Consult) 1 ea UD PRN N/A 01/16/18 01:00 02/15/18 00:59 Levalbuterol (Xopenex 0.63 Mg/ 3 Ml Neb) 0.63 mg Q4R INH 01/16/18 04:00 02/15/18 03:59 01/18/18 07:20 0.63 MG Piperacillin Sod/ Tazobactam Sod 3.375 gm/Sodium Chloride 115 ml @ 28.75 mls/ hr Q8H IV 01/16/18 06:00 01/26/18 05:59 01/18/18 06:16 28.75 MLS/HR Acetaminophen (Tylenol Tab) 650 mg Q4 PRN PO 01/16/18 12:00 02/15/18 00:00 01/18/18 07:44 650 MG Miscellaneous Information (Consult) 1 ea UD PRN N/A 01/16/18 20:30 02/15/18 20:29 Pantoprazole Sodium 40 mg/ Syringe 10 ml @ 5 mls/min DAILY@11 IV 01/17/18 11:00 02/16/18 10:59 01/17/18 07:49 5 MLS/MIN Potassium Chloride/Sodium Chloride 1,000 ml @ 100 mls/hr Q10H IV 01/16/18 21:00 02/15/18 20:59 01/18/18 03:00 100 MLS/HR Lorazepam 0.5 mg/ Syringe 1 ml @ 1 mls/min HS PRN IV 01/17/18 00:45 02/16/18 00:44 Lorazepam (Ativan Inj) 0.5 mg HS PRN IV 01/17/18 00:45 02/16/18 00:44 01/17/18 23:11 1 MG Lorazepam 0.5 mg/ Syringe 1 ml @ 1 mls/min Q6H PRN IV 01/17/18 03:00 02/16/18 02:59 Lorazepam (Ativan Inj) 0.5 mg Q6H PRN IV 01/17/18 03:00 02/16/18 02:59 Docusate Sodium (coLACE CAP) 100 mg BID PO 01/17/18 21:00 02/16/18 20:59 01/17/18 23:12 100 MG Simethicone (Mylicon Chew Tab) 80 mg Q6H PRN PO 01/17/18 18:15 02/16/18 18:14 01/17/18 18:33 80 MG Enoxaparin Sodium (Lovenox Inj) 40 mg QAM SQ 01/18/18 09:00 02/17/18 08:59 Vancomycin HCl 1500 mg/Sodium Chloride 530 ml @ 200 mls/hr Q8H IV 01/18/18 12:00 01/26/18 03:59 Objective Vital Signs Date Time Temp Pulse Resp B/P (MAP) Pulse Ox O2 Delivery O2 Flow Rate FiO2 01/18/18 07:55 39.3 144 30 129/76 (93) 93 Nasal Cannula 2.0 01/18/18 07:20 114 18 95 Nasal Cannula 2.0 01/18/18 04:00 Room Air 01/18/18 03:10 37.3 104 20 135/92 (106) 93 Nasal Cannula 2.0 01/18/18 00:07 102 18 98 Nasal Cannula 2.0 01/18/18 00:02 Room Air 01/18/18 00:02 37.3 102 18 144/93 (110) 98 Room Air 01/17/18 21:20 38.8 01/17/18 20:00 Nasal Cannula 2.0 01/17/18 19:37 107 18 97 Nasal Cannula 2.0 01/17/18 19:20 38.0 122 24 141/93 (109) 96 Nasal Cannula 2.0 01/17/18 16:00 Nasal Cannula 2.0 01/17/18 15:30 116 18 97 Nasal Cannula 2.0 01/17/18 15:17 38.8 117 18 134/92 (106) 99 Nasal Cannula 2.0 01/17/18 12:00 Nasal Cannula 2.0 01/17/18 11:18 36.6 112 20 132/82 (99) 92 01/17/18 11:12 105 18 96 Nasal Cannula 2.0 Physical Exam Notes: General Appearance: Awake, alert & oriented, comfortable in general, NAD. CV: +S1S2 regular tachycardia, no murmur. No peripheral edema. Pulm: Mildly diminished in left base, perhaps improved. Otherwise clear and without respiratory distress. NC in place. Abdomen: +BS, firm throughout, moderately distended, with tenderness to palpation and percussion in the left mario-abdomen. No palpable ascites. Overall perhaps the same if not a bit worse than yesterday. Extremities: No pedal edema or calf tenderness. Moving all extremities naturally and easily. Neuro: No gross neuro deficits. Lines: PIV Laboratory Results 01/18/18 03:14 Red Blood Count 3.46, Mean Corpuscular Volume 92.8, Mean Corpuscular Hemoglobin 32.1, Mean Corpuscular Hemoglobin Concent 34.6, Mean Platelet Volume 9.8, Neutrophils (%) (Auto) 69.7, Lymphocytes (%) (Auto) 8.6, Monocytes (%) (Auto) 19.4, Eosinophils (%) (Auto) 1.7, Basophils (%) (Auto) 0.1, Neutrophils # (Auto ) 7.39, Lymphocytes # (Auto) 0.91, Monocytes # (Auto) 2.06, Eosinophils # (Auto ) 0.18, Basophils # (Auto) 0.01 01/18/18 03:14 Test 01/18/18 03:14 01/18/18 08:37 White Blood Count 10.60 K/uL (4.8-10.8) Red Blood Count 3.46 M/uL (4.7-6.1) Hemoglobin 11.1 g/dL (14.0-18.0) Hematocrit 32.1 % (42-52) Mean Corpuscular Volume 92.8 fL (80-100) Mean Corpuscular Hemoglobin 32.1 pg (25-34) Mean Corpuscular Hemoglobin Concent 34.6 g/dl (32-36) Platelet Count 123 K/uL (130-400) Mean Platelet Volume 9.8 fL (7.4-10.4) Neutrophils (%) (Auto) 69.7 % Lymphocytes (%) (Auto) 8.6 % Monocytes (%) (Auto) 19.4 % Eosinophils (%) (Auto) 1.7 % Basophils (%) (Auto) 0.1 % Neutrophils # (Auto) 7.39 K/uL (1.4-6.5) Lymphocytes # (Auto) 0.91 K/uL (1.2-3.4) Monocytes # (Auto) 2.06 K/uL (0.11-0.59) Eosinophils # (Auto) 0.18 K/uL (0-0.5) Basophils # (Auto) 0.01 K/uL (0-0.2) RDW Standard Deviation 43.3 fL (36.4-46.3) RDW Coefficient of Variation 12.8 % (11.5-14.5) Immature Granulocyte % (Auto) 0.5 % Immature Granulocyte # (Auto) 0.05 K/uL (0.00-0.02) Nucleated RBC Absolute Count (auto) 0.03 K/uL (0-0) Nucleated Red Blood Cells % 0.3 % Anion Gap 6.0 mmol/L (3-11) Est Creatinine Clear Calc Drug Dose 163.9 ml/min Estimated GFR () > 150.0 Estimated GFR (Non- 133.5 BUN/Creatinine Ratio 5.9 (10-20) Calcium Level 8.2 mg/dl (8.5-10.1) Total Bilirubin 1.5 mg/dl (0.2-1) Aspartate Amino Transf (AST/SGOT) 24 U/L (15-37) Alanine Aminotransferase (ALT/SGPT) 20 U/L (12-78) Alkaline Phosphatase 81 U/L (45-117) Total Protein 5.9 gm/dl (6.4-8.2) Albumin 2.3 gm/dl (3.4-5.0) Globulin 3.6 gm/dl (2.5-4.0) Albumin/Globulin Ratio 0.6 (0.9-2) Lipase 211 U/L (73-393) Vancomycin Level Trough 12.2 mcg/ml (SEE COMMENT) Assessment and Plan 22 yo male admitted on [id number] for acute pancreatitis. Acute Pancreatitis and Ileus: Unknown etiology/SIRS initially of non-infectious origin with acute organ dysfunction (NELL--resolved). Question of due to divisum +/- sludge. Has been on IVF via NS and KCl. Judiciously advancing diet. However, patient continues to have febrile episodes despite being on antibiotics. Due to two prior CAT scans, obtained MRI of abdomen which showed no imaging evidence of acute worsening. Transitioned to a Dilaudid CAR GREASER for pain control. Continue Zofran as needed for nausea. - GI consulted (see their full notes). Multiple serological tests pending. MRCP noted findings c/w acute pancreatitis, bilateral effusions, and abdominal ascites. Continue IVF, but will monitor overall status. Continue supportive care. Hospital-acquired pneumonia: Rather striking left lung silhouette sign, sl SOB, lung exam findings c/w small pneumonia -- likely initially SIRS from pancreatitis, faded into sirs from sepsis from pneumonia -- current abx will suffice - vanco/zosyn - can hopefully narrow as he improves - Small pleural effusions seen on imaging. Will monitor pulm status, but for now need IVF for the pancreatitis. Acute renal failure (present on admission): Initial Cr 1.72, down to 0.7 after IVF. SIRS + Sepsis: See above, initially pancreatitis SIRS, now sepsis from pneumonia. Patient's ongoing fever is likely still related to his pneumonia. 19Apr BCx 2 show no growth to date. 20Apr UCx results no growth (prelim). - Due to ongoing fevers and tachycardia, on 22Apr recultured via blood and urine as a precaution. Impaired fasting glucose: Likely secondary to abnormal pancreatic function, improving. DVT prophy: SCDs Code: Full Dispo: Med/surg Resident Physician Supervision Note: I interviewed and examined the patient. Discussed with Dr. Mcmillan and agree with findings and plan as documented in the note. Any exceptions or clarifications are listed here: None Documented By: Jaya Evan ongoing fevers abdominal pain about the same --> later revisited adn doing better, pain better controlled sob better visited twice, extensive discussions with pt and family (both mom and dad present today) vitals noted nad breathing unlabored no pallor or icterus, lungs diminished base L but actually a bit more clear no e-a; abdomen soft moderate distention ( about the same) epigastric and LUQ tenderness sl worse than yesterday but still no rebound CXR and MRI reviewed (both reports and films) -- and reivisted and reviewed with pt and then again with family w pt's permission acute idiopathic pancreatitis - overall appearing stable to maybe sl improvement - ongoing supportive care. HAP - seems stable to sl improvement as well, continue vanc/zosyn, supportive care fever - repeated evaluations wtihout further yield. repeat blood and urine cultures are pending - but anticipate negative. will have to revisit travel history for completeness, but strongly suspect that fever is simply 2 overlapping curves of SIRS (pancreatitis and pneumonia) in a young person capable of mounting a robust immune response. obviously ongoing f/u needed and if clinically warranted would need to w/u further if repeat fever ileus - supportive care DVT proph - start lovenox >30mins face to face in 2 separate visits w pt/parents Resident Tracking Resident Involvement: Resident Care Provided Care Provided: Adult Hospital Medicine (inpatient)
[2018-01-18] MEDS: ENOXAPARIN 40 MG/0.4 ML SYR SQ SCH (09:56)
[2018-01-18] MEDS: PANTOprazole INJ 40 MG in SYRINGE 0 ML IV SCH (09:56)
[2018-01-18] MEDS: VANCOMYCIN IV 1,500 MG in SODIUM CHLORIDE 0.9% 500ML 500 ML IV SCH ×2 (10:34→20:06)
[2018-01-18] MEDS ORDERED: HYDROmorphone INJ 2 MG/ML SYR/VIAL IV STA (11:38)
[2018-01-18] MEDS: SODIUM CHLORIDE 0.9% 1000ML 1,000 ML IV SCH (11:38)
--- NOTE | 2018-01-18 11:43 | Pharmacy Progress Note ---
Pharmacy Abx Dose Progress Nt Date of Service Jan 18, 2018. Pharmacy Dosing Scope The patient WAS receiving Vancomycin 1250 mg IV q8h per Pharmacy consult. It has been changed to Vancomycin 1500 mg IV q8h based on today's level. Objective Height (Feet): 5 Height (Inches): 7.00 Weight (Kilograms): 79.500 Vital Signs (Past 12Hrs) Vital Signs Past 12 Hours Date Time Temp Pulse Resp B/P (MAP) Pulse Ox O2 Delivery O2 Flow Rate FiO2 01/18/18 11:17 112 18 97 Room Air 01/18/18 10:04 37.2 01/18/18 08:00 Room Air 01/18/18 07:55 39.3 144 30 129/76 (93) 93 Nasal Cannula 2.0 01/18/18 07:20 114 18 95 Nasal Cannula 2.0 01/18/18 04:00 Room Air 01/18/18 03:10 37.3 104 20 135/92 (106) 93 Nasal Cannula 2.0 01/18/18 00:07 102 18 98 Nasal Cannula 2.0 01/18/18 00:02 Room Air 01/18/18 00:02 37.3 102 18 144/93 (110) 98 Room Air Lab Results (24Hrs) Item Value Date Time Vancomycin Level Trough 12.2 mcg/ml 01/18/18 0314 Laboratory Tests (24 Hours) Test 01/18/18 03:14 01/18/18 08:37 White Blood Count 10.60 K/uL (4.8-10.8) Red Blood Count 3.46 M/uL (4.7-6.1) L Hemoglobin 11.1 g/dL (14.0-18.0) L Hematocrit 32.1 % (42-52) L Mean Corpuscular Volume 92.8 fL (80-100) Mean Corpuscular Hemoglobin 32.1 pg (25-34) Mean Corpuscular Hemoglobin Concent 34.6 g/dl (32-36) Platelet Count 123 K/uL (130-400) L Mean Platelet Volume 9.8 fL (7.4-10.4) Neutrophils (%) (Auto) 69.7 % Lymphocytes (%) (Auto) 8.6 % Monocytes (%) (Auto) 19.4 % Eosinophils (%) (Auto) 1.7 % Basophils (%) (Auto) 0.1 % Neutrophils # (Auto) 7.39 K/uL (1.4-6.5) H Lymphocytes # (Auto) 0.91 K/uL (1.2-3.4) L Monocytes # (Auto) 2.06 K/uL (0.11-0.59) H Eosinophils # (Auto) 0.18 K/uL (0-0.5) Basophils # (Auto) 0.01 K/uL (0-0.2) Procalcitonin 2.88 ng/ml (0-0.5) H Micro Results Date/Time Source Procedure Growth Status 01/18/18 11:25 Blood Blood Culture Pending Ordered 01/18/18 11:25 Blood Blood Culture Pending Ordered 01/15/18 19:42 Blood Blood Culture - Preliminary NO GROWTH TO DATE. Resulted 01/15/18 19:21 Blood Blood Culture - Preliminary NO GROWTH TO DATE. Resulted 01/16/18 00:00 Nasal MRSA DNA Surveillance Screen - Final Specimen Negative for MRSA by DNA Probe Complete 01/16/18 00:00 Urine , Clean Catch Urine Culture Pending Received Risk Factors for Resistance * Current hospitalization > 5 days Assessment & Plan Assessment 22 year old male receiving Vancomycin for treatment of SIRS and Pneumonia. Diagnosed with Pancreatitis. Day #3 of antimicrobial therapy Plan Vancomycin IV * Trough level of 12.2 mcg/mL obtained this AM after 4 doses is subtherapeutic. * Calculated PK parameters: Ke = 0.144/hr, t1/2= 4.8 hrs * Dosing was changed to Vancomycin 1500 mg (20 mg/kg) IV every 8 hours * Goal trough level for Pneumonia: 15 to 20 mcg/mL * Trough Vanco level ordered for: 01/19 before dose at 1200 Pharmacy will continue to follow and will adjust dose/frequency as necessary. Thank you.
[2018-01-18] MEDS ORDERED: NALOXONE HCL 0.4 MG/1 ML VIAL/CARP IV PRN (11:45)
--- NOTE | 2018-01-18 12:06 | DIAGNOSTIC IMAGING REPORT ---
CHEST 2 VIEWS ROUTINE CLINICAL HISTORY: continued fevers, recent PNA dyspnea COMPARISON STUDY: 01/15/2018 FINDINGS: Slight increase in consolidative/fusion-type change left base. Slight increase in consolidative change medial right cardiophrenic angle. Mid and upper lungs are clear. IMPRESSION: 1. Slightly progressive left pleural effusion. Small parenchymal infiltrate medial right base. The above report was generated using voice recognition software. It may contain grammatical, syntax or spelling errors. Electronically signed by: Boom Sims M.D. 01/18/2018 12:05 PM Dictated Date/Time: 01/18/2018 12:04 PM
[2018-01-18] MEDS: HYDROmorphone HCL 0.5MG/ML 50 ML CASSETTE IV PRN (12:45)
--- NOTE | 2018-01-18 13:05 | Gastroenterology Progress Note ---
Progress Note Date of Service: Jan 18, 2018 Subjective Pt evaluation today including: conversation w/ patient, conversation w/ family (mother and father), physical exam, chart review, lab review, review of studies , review of inpatient medication list cc f/u pancreatisi. HPI Still having fever. Abd pain about the same as yesterday but tolerating full liquid diet. Review of Systems Respiratory: No shortness of breath Cardiac: No chest pain Medications Current Inpatient Medications Medications (Trade) Dose Ordered Sig/Judith Route Start Time Stop Time Status Last Admin Dose Admin Ondansetron HCl (Zofran Inj) 4 mg Q6H PRN IV 01/14/18 00:45 02/13/18 00:44 01/14/18 07:38 4 MG Miscellaneous Information (Consult) 1 eric UD PRN N/A 01/16/18 01:00 02/15/18 00:59 Levalbuterol (Xopenex 0.63 Mg/ 3 Ml Neb) 0.63 mg Q4R INH 01/16/18 04:00 02/15/18 03:59 01/18/18 11:16 0.63 MG Piperacillin Sod/ Tazobactam Sod 3.375 gm/Sodium Chloride 115 ml @ 28.75 mls/ hr Q8H IV 01/16/18 06:00 01/26/18 05:59 01/18/18 06:16 28.75 MLS/HR Acetaminophen (Tylenol Tab) 650 mg Q4 PRN PO 01/16/18 12:00 02/15/18 00:00 01/18/18 07:44 650 MG Miscellaneous Information (Consult) 1 eric UD PRN N/A 01/16/18 20:30 02/15/18 20:29 Pantoprazole Sodium 40 mg/ Syringe 10 ml @ 5 mls/min DAILY@11 IV 01/17/18 11:00 02/16/18 10:59 01/18/18 09:56 5 MLS/MIN Potassium Chloride/Sodium Chloride 1,000 ml @ 100 mls/hr Q10H IV 01/16/18 21:00 02/15/18 20:59 01/18/18 03:00 100 MLS/HR Lorazepam 0.5 mg/ Syringe 1 ml @ 1 mls/min HS PRN IV 01/17/18 00:45 02/16/18 00:44 Lorazepam (Ativan Inj) 0.5 mg HS PRN IV 01/17/18 00:45 02/16/18 00:44 01/17/18 23:11 1 MG Lorazepam 0.5 mg/ Syringe 1 ml @ 1 mls/min Q6H PRN IV 01/17/18 03:00 02/16/18 02:59 Lorazepam (Ativan Inj) 0.5 mg Q6H PRN IV 01/17/18 03:00 02/16/18 02:59 Docusate Sodium (coLACE CAP) 100 mg BID PO 01/17/18 21:00 02/16/18 20:59 01/17/18 23:12 100 MG Simethicone (Mylicon Chew Tab) 80 mg Q6H PRN PO 01/17/18 18:15 02/16/18 18:14 01/17/18 18:33 80 MG Enoxaparin Sodium (Lovenox Inj) 40 mg QAM SQ 01/18/18 09:00 02/17/18 08:59 01/18/18 09:56 40 MG Vancomycin HCl 1500 mg/Sodium Chloride 530 ml @ 200 mls/hr Q8H IV 01/18/18 12:00 01/26/18 03:59 01/18/18 10:34 200 MLS/HR Naloxone HCl (Narcan Inj) 0.1 mg Q5M PRN IV 01/18/18 11:45 02/17/18 11:44 Hydromorphone HCl (Dilaudid Volunteer Services Coordinator) 25 mg PRN PRN IV 01/18/18 11:45 02/01/18 11:44 01/18/18 12:45 25 MG Sodium Chloride 1,000 ml @ 15 mls/hr Q24H IV 01/18/18 11:38 02/17/18 11:37 Objective Vital Signs Date Time Temp Pulse Resp B/P (MAP) Pulse Ox O2 Delivery O2 Flow Rate FiO2 01/18/18 12:00 Room Air 01/18/18 11:17 112 18 97 Room Air 01/18/18 10:04 37.2 01/18/18 08:00 Room Air 01/18/18 07:55 39.3 144 30 129/76 (93) 93 Nasal Cannula 2.0 01/18/18 07:20 114 18 95 Nasal Cannula 2.0 01/18/18 04:00 Room Air 01/18/18 03:10 37.3 104 20 135/92 (106) 93 Nasal Cannula 2.0 01/18/18 00:07 102 18 98 Nasal Cannula 2.0 01/18/18 00:02 Room Air 01/18/18 00:02 37.3 102 18 144/93 (110) 98 Room Air 01/17/18 21:20 38.8 01/17/18 20:00 Nasal Cannula 2.0 01/17/18 19:37 107 18 97 Nasal Cannula 2.0 01/17/18 19:20 38.0 122 24 141/93 (109) 96 Nasal Cannula 2.0 01/17/18 16:00 Nasal Cannula 2.0 01/17/18 15:30 116 18 97 Nasal Cannula 2.0 01/17/18 15:17 38.8 117 18 134/92 (106) 99 Nasal Cannula 2.0 Physical Exam General Appearance: WD/WN, no apparent distress Respiratory/Chest: lungs clear, no respiratory distress Cardiovascular: regular rate, rhythm Abdomen: normal bowel sounds, soft, no organomegaly, + guarding (guarding epigastric to LUQ but no rebound) Laboratory Results Last 24 Hours Test 01/18/18 03:14 01/18/18 08:37 White Blood Count 10.60 K/uL Red Blood Count 3.46 M/uL Hemoglobin 11.1 g/dL Hematocrit 32.1 % Mean Corpuscular Volume 92.8 fL Mean Corpuscular Hemoglobin 32.1 pg Mean Corpuscular Hemoglobin Concent 34.6 g/dl Platelet Count 123 K/uL Mean Platelet Volume 9.8 fL Neutrophils (%) (Auto) 69.7 % Lymphocytes (%) (Auto) 8.6 % Monocytes (%) (Auto) 19.4 % Eosinophils (%) (Auto) 1.7 % Basophils (%) (Auto) 0.1 % Neutrophils # (Auto) 7.39 K/uL Lymphocytes # (Auto) 0.91 K/uL Monocytes # (Auto) 2.06 K/uL Eosinophils # (Auto) 0.18 K/uL Basophils # (Auto) 0.01 K/uL RDW Standard Deviation 43.3 fL RDW Coefficient of Variation 12.8 % Immature Granulocyte % (Auto) 0.5 % Immature Granulocyte # (Auto) 0.05 K/uL Nucleated RBC Absolute Count (auto) 0.03 K/uL Nucleated Red Blood Cells % 0.3 % Sodium Level 138 mmol/L Potassium Level 3.7 mmol/L Chloride Level 105 mmol/L Carbon Dioxide Level 27 mmol/L Anion Gap 6.0 mmol/L Blood Urea Nitrogen 4 mg/dl Creatinine 0.73 mg/dl Est Creatinine Clear Calc Drug Dose 163.9 ml/min Estimated GFR () > 150.0 Estimated GFR (Non- 133.5 BUN/Creatinine Ratio 5.9 Random Glucose 88 mg/dl Calcium Level 8.2 mg/dl Total Bilirubin 1.5 mg/dl Aspartate Amino Transf (AST/SGOT) 24 U/L Alanine Aminotransferase (ALT/SGPT) 20 U/L Alkaline Phosphatase 81 U/L Total Protein 5.9 gm/dl Albumin 2.3 gm/dl Globulin 3.6 gm/dl Albumin/Globulin Ratio 0.6 Lipase 211 U/L Vancomycin Level Trough 12.2 mcg/ml Procalcitonin 2.88 ng/ml Assessment and Plan abd pain--secondary to pancreatitis pancreatitis elevated lipids Etiology of pancreatitis not clear. Viral is possible. GB sludge passing through bile duct possible but no current blockage of bile duct. Continue supportive care. Lipids need followed as outpt. WBC ok, lipase normal, LFTs improved, abd pain same but improved over admit. CXR today pleural effusion. MRI of abdomen is ordered to look for infected necrosis.
--- NOTE | 2018-01-18 15:59 | DIAGNOSTIC IMAGING REPORT ---
ABDOMEN COMBO CLINICAL HISTORY: Pancreatitis. COMPARISON STUDY: 01/16/2018. TECHNIQUE: MRI of the abdomen is performed transverse T1 and T2-weighted sequences in the axial and coronal planes. Contrast enhanced sequences were acquired following the IV administration of gadolinium enhancement. FINDINGS: Lower chest: Bilateral pleural effusions similar as compared to the prior study. Liver: Mild fatty infiltration. Gallbladder: Negative for significant distention. Spleen: Normal in size and signal intensity. Pancreas: Edematous with evidence for peripancreatic infiltrative change. This is similar compared to the prior study. Several peripancreatic fluid pockets are present which are similar as compared to the prior exam. There is no definitive evidence for pancreatic necrosis. Adrenal glands: Unremarkable. Kidneys: The kidneys are normal in size and without hydronephrosis. The kidneys enhance and excrete symmetrically. Bowel: Minimal nonobstructive reactive ileus. Peritoneum: Mild scattered abdominal ascites unchanged from the prior study. Lymphadenopathy: None. Skeletal structures: Visualized skeletal structures times are normal marrow signal intensity. IMPRESSION: 1. Findings consistent with pancreatitis essentially unchanged from the prior exam. 2. Mild peripancreatic infiltrative change with mild scattered ascites and fluid pockets unchanged from the prior exam. 3. No evidence for well-defined encapsulated pseudocyst or abscess. 4. No evidence for pancreatic necrosis based on this exam. 5. Bilateral pleural effusions unchanged The above report was generated using voice recognition software. It may contain grammatical, syntax or spelling errors. Electronically signed by: Boom Sims M.D. 01/18/2018 3:58 PM Dictated Date/Time: 01/18/2018 3:51 PM
[2018-01-18] MEDS: OXYCODONE HCL IR 5 MG TAB (IMMEDIATE RELEASE) PO PRN (23:36)
[2018-01-19] VITALS (14 sets, daily range): BP systolic 130–152; BP diastolic 73–98; PULSE 68–131; TEMP 36.8–38.1; O2SAT 93–96
[2018-01-19] MEDS: LEVALBUTEROL 0.63MG/3 ML NEB INH SCH ×7 (03:40→23:08)
[2018-01-19] MEDS: VANCOMYCIN IV 1,500 MG in SODIUM CHLORIDE 0.9% 500ML 500 ML IV SCH ×2 (03:41→13:25)
[2018-01-19] MEDS: PIPERACILL/TAZOBAC IV 3.375 GM in NSS 100ML IV SCH ×3 (06:15→21:47)
[2018-01-19 07:10] LABS: BASO % 0.1 %; BASO ABS # 0.01 K/uL (0-0.2); EOS % 1.5 %; EOS ABS # 0.17 K/uL (0-0.5); HEMATOCRIT 31.3 % (42-52); HEMOGLOBIN 10.7 g/dL (14.0-18.0); IG# 0.09 K/uL (0.00-0.02); LYMPH % 10.4 %; LYMPH ABS # 1.17 K/uL (1.2-3.4); MEAN CELL VOLUME 92.9 fL (80-100); MEAN CORPUSCULAR HEMOGLOBIN 31.8 pg (25-34); MEAN CORPUSCULAR HGB CONC 34.2 g/dl (32-36); MEAN PLATELET VOLUME 9.9 fL (7.4-10.4); MONO % 17.2 %; MONO ABS # 1.93 K/uL (0.11-0.59); NEUT ABS # 7.86 K/uL (1.4-6.5); NUCLEATED RED BLOOD CELL ABS 0.03 K/uL (0-0); PLATELET COUNT 177 K/uL (130-400); RED CELL DISTRIBUTION WIDTH CV 12.8 % (11.5-14.5); RED CELL DISTRIBUTION WIDTH SD 43.7 fL (36.4-46.3); WHITE BLOOD COUNT 11.23 K/uL (4.8-10.8)
[2018-01-19] MEDS: OXYCODONE HCL IR 5 MG TAB (IMMEDIATE RELEASE) PO PRN ×3 (07:38→23:32)
[2018-01-19] MEDS: DOCUSATE SODIUM 100 MG CAP PO SCH ×2 (07:39→21:47)
[2018-01-19] MEDS: ENOXAPARIN 40 MG/0.4 ML SYR SQ SCH (07:39)
[2018-01-19] MEDS: NSS + 20MEQ KCL 1000ML 1,000 ML IV SCH ×2 (07:39→19:32)
[2018-01-19 07:42] LABS: ALBUMIN 2.3 gm/dl (3.4-5.0); CALCIUM 8.1 mg/dl (8.5-10.1); CREATININE 0.86 mg/dl (0.60-1.40); POTASSIUM 3.3 mmol/L (3.5-5.1)
[2018-01-19 07:53] LABS: TOTAL PROTEIN 6.2 gm/dl (6.4-8.2)
[2018-01-19] MEDS ORDERED: VANCOMYCIN TROUGH ONE (11:30)
[2018-01-19] MEDS: PANTOprazole INJ 40 MG in SYRINGE 0 ML IV SCH (11:54)
[2018-01-19] MEDS: SODIUM CHLORIDE 0.9% 1000ML 1,000 ML IV SCH (12:01)
--- NOTE | 2018-01-19 13:41 | Pharmacy Progress Note ---
Pharmacy Abx Dose Short Note Date of Service Jan 19, 2018. Assessment & Plan Assessment 22 year old male receiving vancomycin/zosyn for treatment of pancreatitis/ HAP. Vancomycin level subtherapeutic again, most likely given patent's age and renal function. Since dose is already at ~20mg/kg (1500mg), will opt to increase interval to q6 dosing at 15mg/kg (1250mg), but will recheck a level tomorrow. Day # 5 of antimicrobial therapy. Plan Vancomycin * Trough level of 10.3 mcg/mL is subtherapeutic * Change to 1250 mg IV every 6 hours * Goal trough level : 15 to 20 mcg/mL * Trough or random level ordered for: 01/20/18 @1330 Pharmacy will continue to follow and will adjust dose/frequency as necessary. Thank you.
[2018-01-19 13:54] LABS: HEPATITIS A IGM TC 51813E NON-REACTIVE (NON-REACTIVE); HEPATITIS B CORE IGM TC51854R NON-REACTIVE (NON-REACTIVE)
--- NOTE | 2018-01-19 17:37 | Gastroenterology Progress Note ---
Progress Note Date of Service: Jan 19, 2018 Subjective Pt evaluation today including: conversation w/ patient, conversation w/ family (mother and father and stepfather), physical exam, chart review, lab review, review of studies, review of inpatient medication list CC f/u pancreatitis HPI MRI pancreattiis but no obvious necrosis, fluid pockets but overall no change. Abd pain about the same. Stools pudding consistency brown. Tolerating full liquid diet. Review of Systems Respiratory: No shortness of breath Cardiac: No chest pain Medications Current Inpatient Medications Medications (Trade) Dose Ordered Sig/Judith Route Start Time Stop Time Status Last Admin Dose Admin Ondansetron HCl (Zofran Inj) 4 mg Q6H PRN IV 01/14/18 00:45 02/13/18 00:44 01/14/18 07:38 4 MG Miscellaneous Information (Consult) 1 ea UD PRN N/A 01/16/18 01:00 02/15/18 00:59 Levalbuterol (Xopenex 0.63 Mg/ 3 Ml Neb) 0.63 mg Q4R INH 01/16/18 04:00 02/15/18 03:59 01/19/18 15:44 0.63 MG Piperacillin Sod/ Tazobactam Sod 3.375 gm/Sodium Chloride 115 ml @ 28.75 mls/ hr Q8H IV 01/16/18 06:00 01/26/18 05:59 01/19/18 13:26 28.75 MLS/HR Acetaminophen (Tylenol Tab) 650 mg Q4 PRN PO 01/16/18 12:00 02/15/18 00:00 01/18/18 07:44 650 MG Miscellaneous Information (Consult) 1 ea UD PRN N/A 01/16/18 20:30 02/15/18 20:29 Pantoprazole Sodium 40 mg/ Syringe 10 ml @ 5 mls/min DAILY@11 IV 01/17/18 11:00 02/16/18 10:59 01/19/18 11:54 5 MLS/MIN Potassium Chloride/Sodium Chloride 1,000 ml @ 100 mls/hr Q10H IV 01/16/18 21:00 02/15/18 20:59 01/19/18 07:39 100 MLS/HR Lorazepam 0.5 mg/ Syringe 1 ml @ 1 mls/min HS PRN IV 01/17/18 00:45 02/16/18 00:44 Lorazepam (Ativan Inj) 0.5 mg HS PRN IV 01/17/18 00:45 02/16/18 00:44 01/17/18 23:11 1 MG Lorazepam 0.5 mg/ Syringe 1 ml @ 1 mls/min Q6H PRN IV 01/17/18 03:00 02/16/18 02:59 Lorazepam (Ativan Inj) 0.5 mg Q6H PRN IV 01/17/18 03:00 02/16/18 02:59 01/19/18 00:25 0.5 MG Docusate Sodium (coLACE CAP) 100 mg BID PO 01/17/18 21:00 02/16/18 20:59 01/19/18 07:39 100 MG Simethicone (Mylicon Chew Tab) 80 mg Q6H PRN PO 01/17/18 18:15 02/16/18 18:14 01/17/18 18:33 80 MG Enoxaparin Sodium (Lovenox Inj) 40 mg QAM SQ 01/18/18 09:00 02/17/18 08:59 01/19/18 07:39 40 MG Naloxone HCl (Narcan Inj) 0.1 mg Q5M PRN IV 01/18/18 11:45 02/17/18 11:44 Hydromorphone HCl (Dilaudid Supervisor [employer]it Clerks) 25 mg PRN PRN IV 01/18/18 11:45 02/01/18 11:44 01/18/18 12:45 25 MG Sodium Chloride 1,000 ml @ 15 mls/hr Q24H IV 01/18/18 11:38 02/17/18 11:37 01/19/18 12:01 15 MLS/HR Oxycodone HCl (Roxicodone Immediate Rel Tab) 5 mg Q4 PRN PO 01/18/18 16:30 02/01/18 16:29 01/19/18 07:38 5 MG Vancomycin HCl 1250 mg/Sodium Chloride 275 ml @ 125 mls/hr Q6H IV 01/19/18 20:00 01/26/18 19:59 Objective Vital Signs Date Time Temp Pulse Resp B/P (MAP) Pulse Ox O2 Delivery O2 Flow Rate FiO2 01/19/18 16:00 95 Room Air 01/19/18 15:57 37.5 120 19 136/83 (100) 94 Room Air 01/19/18 15:44 118 18 95 Room Air 01/19/18 11:56 37.0 94 18 144/98 (113) 96 01/19/18 11:19 115 18 95 Room Air 01/19/18 08:00 Room Air 01/19/18 07:48 36.8 68 18 132/73 (92) 96 01/19/18 07:27 115 18 94 Room Air 01/19/18 04:55 37.4 104 22 148/92 (110) 96 Room Air 01/19/18 04:00 96 Room Air 01/19/18 00:44 37.6 131 19 130/81 (97) 94 Nasal Cannula 2.0 01/18/18 23:59 94 Nasal Cannula 2.0 01/18/18 20:09 120 18 97 Room Air 01/18/18 20:00 97 Room Air 01/18/18 19:39 37.5 121 22 142/87 (105) 90 Room Air 01/18/18 18:23 37.9 Physical Exam General Appearance: WD/WN, no apparent distress Respiratory/Chest: lungs clear, normal breath sounds Abdomen: normal bowel sounds, soft, no organomegaly, + guarding (LUQ but no rebound) Neurologic/Psych: oriented x 3 Skin: normal color Laboratory Results Last 24 Hours Test 01/19/18 06:40 01/19/18 11:16 White Blood Count 11.23 K/uL Red Blood Count 3.37 M/uL Hemoglobin 10.7 g/dL Hematocrit 31.3 % Mean Corpuscular Volume 92.9 fL Mean Corpuscular Hemoglobin 31.8 pg Mean Corpuscular Hemoglobin Concent 34.2 g/dl Platelet Count 177 K/uL Mean Platelet Volume 9.9 fL Neutrophils (%) (Auto) 70.0 % Lymphocytes (%) (Auto) 10.4 % Monocytes (%) (Auto) 17.2 % Eosinophils (%) (Auto) 1.5 % Basophils (%) (Auto) 0.1 % Neutrophils # (Auto) 7.86 K/uL Lymphocytes # (Auto) 1.17 K/uL Monocytes # (Auto) 1.93 K/uL Eosinophils # (Auto) 0.17 K/uL Basophils # (Auto) 0.01 K/uL RDW Standard Deviation 43.7 fL RDW Coefficient of Variation 12.8 % Immature Granulocyte % (Auto) 0.8 % Immature Granulocyte # (Auto) 0.09 K/uL Nucleated RBC Absolute Count (auto) 0.03 K/uL Nucleated Red Blood Cells % 0.3 % Sodium Level 138 mmol/L Potassium Level 3.3 mmol/L Chloride Level 105 mmol/L Carbon Dioxide Level 24 mmol/L Anion Gap 9.0 mmol/L Blood Urea Nitrogen 4 mg/dl Creatinine 0.86 mg/dl Est Creatinine Clear Calc Drug Dose 128.1 ml/min Estimated GFR () 144.7 Estimated GFR (Non- 124.8 BUN/Creatinine Ratio 4.5 Random Glucose 84 mg/dl Calcium Level 8.1 mg/dl Total Bilirubin 0.8 mg/dl Aspartate Amino Transf (AST/SGOT) 35 U/L Alanine Aminotransferase (ALT/SGPT) 24 U/L Alkaline Phosphatase 100 U/L Total Protein 6.2 gm/dl Albumin 2.3 gm/dl Globulin 3.9 gm/dl Albumin/Globulin Ratio 0.6 Lipase 197 U/L Vancomycin Level Trough 10.3 mcg/ml Assessment and Plan abd pain--secondary to pancreatitis pancreatitis elevated lipids--but not high enough for pancreatitis Etiology of pancreatitis not clear. Viral is possible. GB sludge passing through bile duct possible but no current blockage of bile duct. Continue supportive care. Lipids need followed as outpt. EBV IGG pos indicating previous infection (IgM negative). Abd pain about the same. WBC slightly higher but fever curve is trending down. No new recs today.
[2018-01-19] MEDS ORDERED: POTASSIUM CHLORIDE 20 MEQ/15 ML UDC PO STA (19:00)
--- NOTE | 2018-01-19 20:28 | Family Medicine Progress Note ---
Progress Note Date of Service Jan 19, 2018. Subjective Pt evaluation today including: conversation w/ patient, physical exam, chart review, lab review Pain: 5/10 pain despite dilaudid DINING ROOM HOST/HOSTESS this AM and unchanged in the PM PO Intake: tolerating full liquid diet Voiding: no voiding problems This AM pt reports using dilaudid DINING ROOM HOST/HOSTESS 2x/hr and 5/10 pain despite pain meds. Reports sob as unable to take deep breaths due to abdominal pain. Tolerating full liquid diet. No n/v. Constitutional: No fever (as of this AM) Respiratory: + shortness of breath Cardiovascular: No chest pain Abdomen: + pain, No nausea, No vomiting Male : No dysuria Medications Current Inpatient Medications Medications (Trade) Dose Ordered Sig/Judith Route Start Time Stop Time Status Last Admin Dose Admin Ondansetron HCl (Zofran Inj) 4 mg Q6H PRN IV 01/14/18 00:45 02/13/18 00:44 01/14/18 07:38 4 MG Miscellaneous Information (Consult) 1 ea UD PRN N/A 01/16/18 01:00 02/15/18 00:59 Levalbuterol (Xopenex 0.63 Mg/ 3 Ml Neb) 0.63 mg Q4R INH 01/16/18 04:00 02/15/18 03:59 01/19/18 19:27 0.63 MG Piperacillin Sod/ Tazobactam Sod 3.375 gm/Sodium Chloride 115 ml @ 28.75 mls/ hr Q8H IV 01/16/18 06:00 01/26/18 05:59 01/19/18 13:26 28.75 MLS/HR Acetaminophen (Tylenol Tab) 650 mg Q4 PRN PO 01/16/18 12:00 02/15/18 00:00 01/18/18 07:44 650 MG Miscellaneous Information (Consult) 1 ea UD PRN N/A 01/16/18 20:30 02/15/18 20:29 Pantoprazole Sodium 40 mg/ Syringe 10 ml @ 5 mls/min DAILY@11 IV 01/17/18 11:00 02/16/18 10:59 01/19/18 11:54 5 MLS/MIN Potassium Chloride/Sodium Chloride 1,000 ml @ 100 mls/hr Q10H IV 01/16/18 21:00 02/15/18 20:59 01/19/18 19:32 100 MLS/HR Lorazepam 0.5 mg/ Syringe 1 ml @ 1 mls/min HS PRN IV 01/17/18 00:45 02/16/18 00:44 Lorazepam (Ativan Inj) 0.5 mg HS PRN IV 01/17/18 00:45 02/16/18 00:44 01/17/18 23:11 1 MG Lorazepam 0.5 mg/ Syringe 1 ml @ 1 mls/min Q6H PRN IV 01/17/18 03:00 02/16/18 02:59 Lorazepam (Ativan Inj) 0.5 mg Q6H PRN IV 01/17/18 03:00 02/16/18 02:59 01/19/18 00:25 0.5 MG Docusate Sodium (coLACE CAP) 100 mg BID PO 01/17/18 21:00 02/16/18 20:59 01/19/18 07:39 100 MG Simethicone (Mylicon Chew Tab) 80 mg Q6H PRN PO 01/17/18 18:15 02/16/18 18:14 01/17/18 18:33 80 MG Enoxaparin Sodium (Lovenox Inj) 40 mg QAM SQ 01/18/18 09:00 02/17/18 08:59 01/19/18 07:39 40 MG Naloxone HCl (Narcan Inj) 0.1 mg Q5M PRN IV 01/18/18 11:45 02/17/18 11:44 Hydromorphone HCl (Dilaudid Knife Operator) 25 mg PRN PRN IV 01/18/18 11:45 02/01/18 11:44 01/18/18 12:45 25 MG Sodium Chloride 1,000 ml @ 15 mls/hr Q24H IV 01/18/18 11:38 02/17/18 11:37 01/19/18 12:01 15 MLS/HR Oxycodone HCl (Roxicodone Immediate Rel Tab) 5 mg Q4 PRN PO 01/18/18 16:30 02/01/18 16:29 01/19/18 19:31 5 MG Vancomycin HCl 1250 mg/Sodium Chloride 275 ml @ 125 mls/hr Q6H IV 01/19/18 20:00 01/26/18 19:59 Objective Vital Signs Date Time Temp Pulse Resp B/P (MAP) Pulse Ox O2 Delivery O2 Flow Rate FiO2 01/19/18 19:30 110 16 96 Room Air 01/19/18 19:26 38.1 110 20 152/91 (111) 95 Room Air 01/19/18 18:42 38.0 01/19/18 16:00 95 Room Air 01/19/18 15:57 37.5 120 19 136/83 (100) 94 Room Air 01/19/18 15:44 118 18 95 Room Air 01/19/18 11:56 37.0 94 18 144/98 (113) 96 01/19/18 11:19 115 18 95 Room Air 01/19/18 08:00 Room Air 01/19/18 07:48 36.8 68 18 132/73 (92) 96 01/19/18 07:27 115 18 94 Room Air 01/19/18 04:55 37.4 104 22 148/92 (110) 96 Room Air 01/19/18 04:00 96 Room Air 01/19/18 00:44 37.6 131 19 130/81 (97) 94 Nasal Cannula 2.0 01/18/18 23:59 94 Nasal Cannula 2.0 Physical Exam General Appearance: no apparent distress Eyes: normal inspection Respiratory/Chest: lungs clear, normal breath sounds Cardiovascular: regular rate, rhythm, no murmur Abdomen: normal bowel sounds, soft, + distended, + tenderness (epigastric and LUQ) Extremities: non-tender, no pedal edema Neurologic/Psychiatric: alert, oriented x 3 Laboratory Results 01/19/18 06:40 Red Blood Count 3.37, Mean Corpuscular Volume 92.9, Mean Corpuscular Hemoglobin 31.8, Mean Corpuscular Hemoglobin Concent 34.2, Mean Platelet Volume 9.9, Neutrophils (%) (Auto) 70.0, Lymphocytes (%) (Auto) 10.4, Monocytes (%) (Auto) 17.2, Eosinophils (%) (Auto) 1.5, Basophils (%) (Auto) 0.1, Neutrophils # (Auto ) 7.86, Lymphocytes # (Auto) 1.17, Monocytes # (Auto) 1.93, Eosinophils # (Auto ) 0.17, Basophils # (Auto) 0.01 4/23/18 06:40 Test 01/19/18 06:40 01/19/18 11:16 White Blood Count 11.23 K/uL (4.8-10.8) Red Blood Count 3.37 M/uL (4.7-6.1) Hemoglobin 10.7 g/dL (14.0-18.0) Hematocrit 31.3 % (42-52) Mean Corpuscular Volume 92.9 fL (80-100) Mean Corpuscular Hemoglobin 31.8 pg (25-34) Mean Corpuscular Hemoglobin Concent 34.2 g/dl (32-36) Platelet Count 177 K/uL (130-400) Mean Platelet Volume 9.9 fL (7.4-10.4) Neutrophils (%) (Auto) 70.0 % Lymphocytes (%) (Auto) 10.4 % Monocytes (%) (Auto) 17.2 % Eosinophils (%) (Auto) 1.5 % Basophils (%) (Auto) 0.1 % Neutrophils # (Auto) 7.86 K/uL (1.4-6.5) Lymphocytes # (Auto) 1.17 K/uL (1.2-3.4) Monocytes # (Auto) 1.93 K/uL (0.11-0.59) Eosinophils # (Auto) 0.17 K/uL (0-0.5) Basophils # (Auto) 0.01 K/uL (0-0.2) RDW Standard Deviation 43.7 fL (36.4-46.3) RDW Coefficient of Variation 12.8 % (11.5-14.5) Immature Granulocyte % (Auto) 0.8 % Immature Granulocyte # (Auto) 0.09 K/uL (0.00-0.02) Nucleated RBC Absolute Count (auto) 0.03 K/uL (0-0) Nucleated Red Blood Cells % 0.3 % Anion Gap 9.0 mmol/L (3-11) Est Creatinine Clear Calc Drug Dose 128.1 ml/min Estimated GFR () 144.7 Estimated GFR (Non- 124.8 BUN/Creatinine Ratio 4.5 (10-20) Calcium Level 8.1 mg/dl (8.5-10.1) Total Bilirubin 0.8 mg/dl (0.2-1) Aspartate Amino Transf (AST/SGOT) 35 U/L (15-37) Alanine Aminotransferase (ALT/SGPT) 24 U/L (12-78) Alkaline Phosphatase 100 U/L (45-117) Total Protein 6.2 gm/dl (6.4-8.2) Albumin 2.3 gm/dl (3.4-5.0) Globulin 3.9 gm/dl (2.5-4.0) Albumin/Globulin Ratio 0.6 (0.9-2) Lipase 197 U/L (73-393) Vancomycin Level Trough 10.3 mcg/ml (SEE COMMENT) Assessment and Plan 22 yo healthy male admitted on for acute pancreatitis on 01/14/18. Acute Pancreatitis and Ileus: -Unknown etiology/SIRS initially of non-infectious origin with acute organ dysfunction (NELL--resolved) -Likely secondary to gallbladder sludge -On and off febrile episodes despite antibiotics -MRI 01/18- no evidence of acute worsening. -Continue Dilaudid DINING ROOM HOST/HOSTESS for pain control -Continue Zofran as needed for nausea -Continue IVF - NS and KCl -Continue Vanc/Zosyn -Advanced diet to full liquids - tolerating -GI consulted: -MRCP noted findings c/w acute pancreatitis, bilateral effusions, and abdominal ascites -serologic studies: positive EBV IgG (previous infection); Hep A, B, C negative; influenza neg; mycoplasma antibodies pending -lipids follow up outpatient - not elevated enough for pancreatitis Hospital-acquired pneumonia: SOB -vanco/zosyn covers - narrow as he improves -Small pleural effusions seen on imaging NELL - improved: Initial Cr 1.72, down to 0.8 after IVF. SIRS + Sepsis: See above, initially pancreatitis SIRS, now sepsis from pneumonia. Patient's ongoing fever is likely still related to his pneumonia. -BCx negative from and -Repeated BCx and UCx 01/18 pending Impaired fasting glucose: Likely secondary to abnormal pancreatic function, improving; 84 this AM DVT prophy: SCDs Code: Full Dispo: Med/surg Resident Physician Supervision Note: I was present with Dr. Martin during the history and exam. I discussed the case with the resident and agree with the findings and plan as documented in the note. The patient notes continued pain, however he is working on schoolwork and no obvious signs of distress. He has tenderness mid epigastric, but no rebound. No fevers today, but procalcitonin slightly up compared to previous. Continue current care and will discuss with consultants. Documented By: Soren Santamaria Resident Involvement: Resident Care Provided Care Provided: Adult Hospital Medicine
[2018-01-19] MEDS: VANCOMYCIN IV 1,250 MG in SODIUM CHLORIDE 0.9% 250ML 250 ML IV SCH (21:47)
[2018-01-20] VITALS (12 sets, daily range): BP systolic 124–152; BP diastolic 77–99; PULSE 101–118; TEMP 36.6–38.8; O2SAT 91–95
[2018-01-20] MEDS: LEVALBUTEROL 0.63MG/3 ML NEB INH SCH ×6 (03:27→22:53)
[2018-01-20] MEDS: VANCOMYCIN IV 1,250 MG in SODIUM CHLORIDE 0.9% 250ML 250 ML IV SCH ×4 (04:13→22:22)
[2018-01-20] MEDS: ACETAMINOPHEN 325 MG TAB PO PRN ×2 (04:14→19:38)
[2018-01-20] MEDS: OXYCODONE HCL IR 5 MG TAB (IMMEDIATE RELEASE) PO PRN ×5 (04:38→22:23)
[2018-01-20] MEDS: PIPERACILL/TAZOBAC IV 3.375 GM in NSS 100ML IV SCH ×2 (07:05→14:20)
[2018-01-20 07:22] LABS: NUCLEATED RED BLOOD CELL ABS 0.03 K/uL (0-0)
[2018-01-20 07:48] LABS: BASO % 0.2 %; BASO ABS # 0.02 K/uL (0-0.2); EOS % 0.9 %; EOS ABS # 0.12 K/uL (0-0.5); HEMATOCRIT 33.4 % (42-52); HEMOGLOBIN 11.4 g/dL (14.0-18.0); IG# 0.09 K/uL (0.00-0.02); LYMPH % 6.7 %; LYMPH ABS # 0.86 K/uL (1.2-3.4); MEAN CELL VOLUME 92.8 fL (80-100); MEAN CORPUSCULAR HEMOGLOBIN 31.7 pg (25-34); MEAN CORPUSCULAR HGB CONC 34.1 g/dl (32-36); MEAN PLATELET VOLUME 10.5 fL (7.4-10.4); MONO % 14.7 %; MONO ABS # 1.89 K/uL (0.11-0.59); NEUT % 76.8 %; PLATELET COUNT 292 K/uL (130-400); RED CELL DISTRIBUTION WIDTH CV 12.8 % (11.5-14.5); RED CELL DISTRIBUTION WIDTH SD 43.6 fL (36.4-46.3); WHITE BLOOD COUNT 12.88 K/uL (4.8-10.8)
[2018-01-20] MEDS: ENOXAPARIN 40 MG/0.4 ML SYR SQ SCH (07:55)
[2018-01-20] MEDS: NSS + 20MEQ KCL 1000ML 1,000 ML IV SCH ×2 (07:55→21:06)
[2018-01-20] MEDS: DOCUSATE SODIUM 100 MG CAP PO SCH ×2 (07:55→18:05)
[2018-01-20 08:03] LABS: ALBUMIN 2.4 gm/dl (3.4-5.0); ALKALINE PHOSPHATASE 133 U/L (45-117); ALT/SGPT 39 U/L (12-78); BLOOD UREA NITROGEN 3 mg/dl (7-18); CALCIUM 8.5 mg/dl (8.5-10.1); CARBON DIOXIDE 24 mmol/L (21-32); CREATININE 1.04 mg/dl (0.60-1.40); GLUCOSE 90 mg/dl (70-99); LIPASE 228 U/L (73-393); SODIUM 139 mmol/L (136-145); TOTAL PROTEIN 6.9 gm/dl (6.4-8.2)
[2018-01-20 08:13] LABS: POTASSIUM 3.6 mmol/L (3.5-5.1)
--- NOTE | 2018-01-20 08:56 | DIAGNOSTIC IMAGING REPORT ---
CHEST ONE VIEW PORTABLE CLINICAL HISTORY: Fever. Follow-up pneumonia. COMPARISON STUDY: Chest radiograph January 18, 2018 FINDINGS: There is no pneumothorax. Moderate left and small right pleural effusions are similar to exam of January 18, 2018. There are associated bibasilar opacities. There is no evidence for pulmonary edema. Cardiomediastinal silhouette is stable. IMPRESSION: No change in moderate left and small right pleural effusions. Persistent bibasilar opacities, greater on the left, which could reflect atelectasis or pneumonia. Electronically signed by: Perfecto Borden M.D. 01/20/2018 8:55 AM Dictated Date/Time: 01/20/2018 8:54 AM
[2018-01-20] MEDS: PANTOprazole INJ 40 MG in SYRINGE 0 ML IV SCH (11:09)
--- NOTE | 2018-01-20 13:10 | Family Medicine Progress Note ---
Progress Note Date of Service Jan 20, 2018. Subjective Pt evaluation today including: conversation w/ patient, physical exam, chart review, lab review Pain: 5/10 abdominal pain PO Intake: tolerating full liquid diet Voiding: no voiding problems This AM pt reports having a fever this AM with diaphoresis. Reports overall about the same as yesterday 5/10 abdominal pain. 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 A/w sob. Denies any cp, n/v, d/c, dysuria. Constitutional: No fever Respiratory: + shortness of breath Cardiovascular: No chest pain Abdomen: + pain, No nausea, No vomiting, No diarrhea, No constipation Male : No dysuria Medications Current Inpatient Medications Medications (Trade) Dose Ordered Sig/Judith Route Start Time Stop Time Status Last Admin Dose Admin Ondansetron HCl (Zofran Inj) 4 mg Q6H PRN IV 01/14/18 00:45 02/13/18 00:44 01/14/18 07:38 4 MG Levalbuterol (Xopenex 0.63 Mg/ 3 Ml Neb) 0.63 mg Q4R INH 01/16/18 04:00 02/15/18 03:59 01/20/18 15:09 0.63 MG Acetaminophen (Tylenol Tab) 650 mg Q4 PRN PO 01/16/18 12:00 02/15/18 00:00 01/20/18 04:14 650 MG Miscellaneous Information (Consult) 1 ea UD PRN N/A 01/16/18 20:30 02/15/18 20:29 Pantoprazole Sodium 40 mg/ Syringe 10 ml @ 5 mls/min DAILY@11 IV 01/17/18 11:00 02/16/18 10:59 01/20/18 11:09 5 MLS/MIN Potassium Chloride/Sodium Chloride 1,000 ml @ 100 mls/hr Q10H IV 01/16/18 21:00 02/15/18 20:59 01/20/18 07:55 100 MLS/HR Lorazepam 0.5 mg/ Syringe 1 ml @ 1 mls/min HS PRN IV 01/17/18 00:45 02/16/18 00:44 Lorazepam (Ativan Inj) 0.5 mg HS PRN IV 01/17/18 00:45 02/16/18 00:44 01/17/18 23:11 1 MG Lorazepam 0.5 mg/ Syringe 1 ml @ 1 mls/min Q6H PRN IV 01/17/18 03:00 02/16/18 02:59 Lorazepam (Ativan Inj) 0.5 mg Q6H PRN IV 01/17/18 03:00 02/16/18 02:59 01/19/18 00:25 0.5 MG Docusate Sodium (coLACE CAP) 100 mg BID PO 01/17/18 21:00 02/16/18 20:59 01/20/18 07:55 100 MG Simethicone (Mylicon Chew Tab) 80 mg Q6H PRN PO 01/17/18 18:15 02/16/18 18:14 01/17/18 18:33 80 MG Enoxaparin Sodium (Lovenox Inj) 40 mg QAM SQ 01/18/18 09:00 02/17/18 08:59 01/20/18 07:55 40 MG Naloxone HCl (Narcan Inj) 0.1 mg Q5M PRN IV 01/18/18 11:45 02/17/18 11:44 Hydromorphone HCl (Dilaudid Gravel Hauler) 25 mg PRN PRN IV 01/18/18 11:45 02/01/18 11:44 01/18/18 12:45 25 MG Sodium Chloride 1,000 ml @ 15 mls/hr Q24H IV 01/18/18 11:38 02/17/18 11:37 01/19/18 12:01 15 MLS/HR Oxycodone HCl (Roxicodone Immediate Rel Tab) 5 mg Q4 PRN PO 01/18/18 16:30 02/01/18 16:29 01/20/18 14:20 5 MG Vancomycin HCl 1250 mg/Sodium Chloride 275 ml @ 125 mls/hr Q6H IV 01/19/18 20:00 01/26/18 19:59 01/20/18 10:01 125 MLS/HR Imipenem/ Cilastatin Sodium 500 mg/Dextrose 110 ml @ 100 mls/hr Q6H IV 01/20/18 16:00 01/30/18 15:59 Fluconazole/ Sodium Chloride 200 mg/Prmx 100 ml @ 100 mls/hr DAILY@1800 IV 01/20/18 18:00 01/30/18 17:59 Objective Vital Signs Date Time Temp Pulse Resp B/P (MAP) Pulse Ox O2 Delivery O2 Flow Rate FiO2 01/20/18 15:09 110 16 95 Room Air 01/20/18 12:00 Room Air 01/20/18 11:57 36.6 102 16 137/90 (106) 95 Room Air 01/20/18 11:33 101 16 94 Room Air 01/20/18 08:00 Room Air 01/20/18 07:51 36.8 105 16 124/78 (93) 94 Room Air 01/20/18 07:09 110 16 93 Room Air 01/20/18 04:05 38.8 113 18 145/98 (114) 91 Room Air 01/20/18 04:00 Room Air 01/20/18 00:01 Room Air 01/20/18 00:01 37.7 18 138/99 (112) 94 Room Air 01/19/18 23:09 113 16 93 Room Air 01/19/18 20:00 Room Air 01/19/18 19:30 110 16 96 Room Air 01/19/18 19:26 38.1 110 20 152/91 (111) 95 Room Air 01/19/18 18:42 38.0 Physical Exam General Appearance: no apparent distress Eyes: normal inspection Respiratory/Chest: lungs clear, normal breath sounds, + pertinent finding ( diminished breath sounds LLL) Cardiovascular: + tachycardia, + pertinent finding (regular rhythm) Abdomen: normal bowel sounds, soft, + distended, + tenderness (LUQ; no rebound TTP) Extremities: non-tender, normal inspection, no pedal edema Neurologic/Psychiatric: alert, oriented x 3, + pertinent finding (appears stoic (likely personality - introverted)) Skin: warm/dry Laboratory Results 01/20/18 06:37 Red Blood Count 3.60, Mean Corpuscular Volume 92.8, Mean Corpuscular Hemoglobin 31.7, Mean Corpuscular Hemoglobin Concent 34.1, Mean Platelet Volume 10.5, Neutrophils (%) (Auto) 76.8, Lymphocytes (%) (Auto) 6.7, Monocytes (%) (Auto) 14.7, Eosinophils (%) (Auto) 0.9, Basophils (%) (Auto) 0.2, Neutrophils # (Auto ) 9.90, Lymphocytes # (Auto) 0.86, Monocytes # (Auto) 1.89, Eosinophils # (Auto ) 0.12, Basophils # (Auto) 0.02 01/20/18 06:37 Test 01/20/18 06:37 01/20/18 08:22 01/20/18 15:51 White Blood Count 12.88 K/uL (4.8-10.8) Red Blood Count 3.60 M/uL (4.7-6.1) Hemoglobin 11.4 g/dL (14.0-18.0) Hematocrit 33.4 % (42-52) Mean Corpuscular Volume 92.8 fL (80-100) Mean Corpuscular Hemoglobin 31.7 pg (25-34) Mean Corpuscular Hemoglobin Concent 34.1 g/dl (32-36) Platelet Count 292 K/uL (130-400) Mean Platelet Volume 10.5 fL (7.4-10.4) Neutrophils (%) (Auto) 76.8 % Lymphocytes (%) (Auto) 6.7 % Monocytes (%) (Auto) 14.7 % Eosinophils (%) (Auto) 0.9 % Basophils (%) (Auto) 0.2 % Neutrophils # (Auto) 9.90 K/uL (1.4-6.5) Lymphocytes # (Auto) 0.86 K/uL (1.2-3.4) Monocytes # (Auto) 1.89 K/uL (0.11-0.59) Eosinophils # (Auto) 0.12 K/uL (0-0.5) Basophils # (Auto) 0.02 K/uL (0-0.2) RDW Standard Deviation 43.6 fL (36.4-46.3) RDW Coefficient of Variation 12.8 % (11.5-14.5) Immature Granulocyte % (Auto) 0.7 % Immature Granulocyte # (Auto) 0.09 K/uL (0.00-0.02) Nucleated RBC Absolute Count (auto) 0.03 K/uL (0-0) Nucleated Red Blood Cells % 0.3 % Anion Gap 9.0 mmol/L (3-11) Est Creatinine Clear Calc Drug Dose 106.0 ml/min Estimated GFR () 119.2 Estimated GFR (Non- 102.9 BUN/Creatinine Ratio 3.2 (10-20) Calcium Level 8.5 mg/dl (8.5-10.1) Total Bilirubin 0.9 mg/dl (0.2-1) Aspartate Amino Transf (AST/SGOT) 58 U/L (15-37) Alanine Aminotransferase (ALT/SGPT) 39 U/L (12-78) Alkaline Phosphatase 133 U/L (45-117) Total Protein 6.9 gm/dl (6.4-8.2) Albumin 2.4 gm/dl (3.4-5.0) Globulin 4.5 gm/dl (2.5-4.0) Albumin/Globulin Ratio 0.5 (0.9-2) Lipase 228 U/L (73-393) Procalcitonin 1.08 ng/ml (0-0.5) Date Time Temp Pulse Resp B/P (MAP) Pulse Ox O2 Delivery O2 Flow Rate FiO2 01/20/18 15:09 110 16 95 Room Air Assessment and Plan 22 yo healthy male admitted on for acute pancreatitis on 01/14/18. Continues to spike fevers: this AM 38.8. Concern for superinfection and ID consulted. Changed abx to imipenem and added antifungal for concern of fungal superinfection by GI. 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 Ramos fevers likely from pancreatitis vs. superinfection - broadened antibiotic coverage to imipenem and started on fluconazole for antifungal coverage - recommended repeat imaging if fever persists of pancreas to r/ot pseudocyst and chest Ct to rule out ARDS Hospital-acquired pneumonia: SOB -On imipenem -Small pleural effusions seen on imaging NELL - improved: Initial Cr 1.72, down to 1.04 after IVF SIRS + Sepsis: See above, initially pancreatitis SIRS, now sepsis from pneumonia. Patient's ongoing fever is likely concerning for other bacterial superinfection -BCx 01/20 pending -Repeated BCx NGTD and UCx neg - 01/18 Impaired fasting glucose - improved: Likely secondary to abnormal pancreatic function, improving; 90 this AM DVT prophy: SCDs Code: Full Dispo: Med/surg Resident Physician Supervision Note: I was present with Dr. Martin during the history and exam. I discussed the case with the resident and agree with the findings and plan as documented in the note. Any exceptions or clarifications are listed here: Upon exam, the patient does not appear to be in acute distress. He does have tenderness in LUQ, similar to yesterday. While his exam is similar to yesterday, he had recurrence of fever overnight. His lipase remains normal; his procalcitonin, while still elevated, is down today. There is question if his CXR represents pneumonia or atelectasis - given his overall presentation (no cough and lack of respiratory symptoms), I favor atelectasis at this point. I discussed the case with both gastroenterology and infectious disease consultants today. Documented By: Soren Santamaria Resident Involvement: Resident Care Provided Care Provided: Adult Hospital Medicine
[2018-01-20] MEDS ORDERED: VANCOMYCIN TROUGH ONE ×2 (13:30→15:30)
--- NOTE | 2018-01-20 14:50 | Gastroenterology Progress Note ---
Progress Note Date of Service: Jan 20, 2018 Subjective Pt evaluation today including: conversation w/ patient, conversation w/ family (girlfriend), physical exam, chart review, lab review, review of studies cc f/u abd pain, pancreatitis HPI Pt states over last few days he cannot tell if abd pain is changing but since admit is improved. He stated yesterday his stools were loose but not watery but today states stools watery. No cough. Review of Systems Respiratory: No shortness of breath Cardiac: No chest pain Medications Current Inpatient Medications Medications (Trade) Dose Ordered Sig/Judith Route Start Time Stop Time Status Last Admin Dose Admin Ondansetron HCl (Zofran Inj) 4 mg Q6H PRN IV 01/14/18 00:45 02/13/18 00:44 01/14/18 07:38 4 MG Miscellaneous Information (Consult) 1 ea UD PRN N/A 01/16/18 01:00 02/15/18 00:59 Levalbuterol (Xopenex 0.63 Mg/ 3 Ml Neb) 0.63 mg Q4R INH 01/16/18 04:00 02/15/18 03:59 01/20/18 11:33 0.63 MG Piperacillin Sod/ Tazobactam Sod 3.375 gm/Sodium Chloride 115 ml @ 28.75 mls/ hr Q8H IV 01/16/18 06:00 01/26/18 05:59 01/20/18 14:20 28.75 MLS/HR Acetaminophen (Tylenol Tab) 650 mg Q4 PRN PO 01/16/18 12:00 02/15/18 00:00 01/20/18 04:14 650 MG Miscellaneous Information (Consult) 1 ea UD PRN N/A 01/16/18 20:30 02/15/18 20:29 Pantoprazole Sodium 40 mg/ Syringe 10 ml @ 5 mls/min DAILY@11 IV 01/17/18 11:00 02/16/18 10:59 01/20/18 11:09 5 MLS/MIN Potassium Chloride/Sodium Chloride 1,000 ml @ 100 mls/hr Q10H IV 01/16/18 21:00 02/15/18 20:59 01/20/18 07:55 100 MLS/HR Lorazepam 0.5 mg/ Syringe 1 ml @ 1 mls/min HS PRN IV 01/17/18 00:45 02/16/18 00:44 Lorazepam (Ativan Inj) 0.5 mg HS PRN IV 01/17/18 00:45 02/16/18 00:44 01/17/18 23:11 1 MG Lorazepam 0.5 mg/ Syringe 1 ml @ 1 mls/min Q6H PRN IV 01/17/18 03:00 02/16/18 02:59 Lorazepam (Ativan Inj) 0.5 mg Q6H PRN IV 01/17/18 03:00 02/16/18 02:59 01/19/18 00:25 0.5 MG Docusate Sodium (coLACE CAP) 100 mg BID PO 01/17/18 21:00 02/16/18 20:59 01/20/18 07:55 100 MG Simethicone (Mylicon Chew Tab) 80 mg Q6H PRN PO 01/17/18 18:15 02/16/18 18:14 01/17/18 18:33 80 MG Enoxaparin Sodium (Lovenox Inj) 40 mg QAM SQ 01/18/18 09:00 02/17/18 08:59 01/20/18 07:55 40 MG Naloxone HCl (Narcan Inj) 0.1 mg Q5M PRN IV 01/18/18 11:45 02/17/18 11:44 Hydromorphone HCl (Dilaudid Cable Installer Repairer Helper) 25 mg PRN PRN IV 01/18/18 11:45 02/01/18 11:44 01/18/18 12:45 25 MG Sodium Chloride 1,000 ml @ 15 mls/hr Q24H IV 01/18/18 11:38 02/17/18 11:37 01/19/18 12:01 15 MLS/HR Oxycodone HCl (Roxicodone Immediate Rel Tab) 5 mg Q4 PRN PO 01/18/18 16:30 02/01/18 16:29 01/20/18 14:20 5 MG Vancomycin HCl 1250 mg/Sodium Chloride 275 ml @ 125 mls/hr Q6H IV 01/19/18 20:00 01/26/18 19:59 01/20/18 10:01 125 MLS/HR Objective Vital Signs Date Time Temp Pulse Resp B/P (MAP) Pulse Ox O2 Delivery O2 Flow Rate FiO2 01/20/18 12:00 Room Air 01/20/18 11:57 36.6 102 16 137/90 (106) 95 Room Air 01/20/18 11:33 101 16 94 Room Air 01/20/18 08:00 Room Air 01/20/18 07:51 36.8 105 16 124/78 (93) 94 Room Air 01/20/18 07:09 110 16 93 Room Air 01/20/18 04:05 38.8 113 18 145/98 (114) 91 Room Air 01/20/18 04:00 Room Air 01/20/18 00:01 Room Air 01/20/18 00:01 37.7 18 138/99 (112) 94 Room Air 01/19/18 23:09 113 16 93 Room Air 01/19/18 20:00 Room Air 01/19/18 19:30 110 16 96 Room Air 01/19/18 19:26 38.1 110 20 152/91 (111) 95 Room Air 01/19/18 18:42 38.0 01/19/18 16:00 95 Room Air 01/19/18 15:57 37.5 120 19 136/83 (100) 94 Room Air 01/19/18 15:44 118 18 95 Room Air Physical Exam General Appearance: WD/WN, no apparent distress Respiratory/Chest: lungs clear, no respiratory distress Cardiovascular: regular rate, rhythm, no murmur Abdomen: normal bowel sounds, soft, no organomegaly, + guarding, + pertinent finding (subjective LUQ pain but no guarding nor rebound) Neurologic/Psych: normal mood/affect, oriented x 3 Skin: normal color, no jaundice Laboratory Results Last 24 Hours Test 01/20/18 06:37 01/20/18 08:22 White Blood Count 12.88 K/uL Red Blood Count 3.60 M/uL Hemoglobin 11.4 g/dL Hematocrit 33.4 % Mean Corpuscular Volume 92.8 fL Mean Corpuscular Hemoglobin 31.7 pg Mean Corpuscular Hemoglobin Concent 34.1 g/dl Platelet Count 292 K/uL Mean Platelet Volume 10.5 fL Neutrophils (%) (Auto) 76.8 % Lymphocytes (%) (Auto) 6.7 % Monocytes (%) (Auto) 14.7 % Eosinophils (%) (Auto) 0.9 % Basophils (%) (Auto) 0.2 % Neutrophils # (Auto) 9.90 K/uL Lymphocytes # (Auto) 0.86 K/uL Monocytes # (Auto) 1.89 K/uL Eosinophils # (Auto) 0.12 K/uL Basophils # (Auto) 0.02 K/uL RDW Standard Deviation 43.6 fL RDW Coefficient of Variation 12.8 % Immature Granulocyte % (Auto) 0.7 % Immature Granulocyte # (Auto) 0.09 K/uL Nucleated RBC Absolute Count (auto) 0.03 K/uL Nucleated Red Blood Cells % 0.3 % Sodium Level 139 mmol/L Potassium Level 3.6 mmol/L Chloride Level 107 mmol/L Carbon Dioxide Level 24 mmol/L Anion Gap 9.0 mmol/L Blood Urea Nitrogen 3 mg/dl Creatinine 1.04 mg/dl Est Creatinine Clear Calc Drug Dose 106.0 ml/min Estimated GFR () 119.2 Estimated GFR (Non- 102.9 BUN/Creatinine Ratio 3.2 Random Glucose 90 mg/dl Calcium Level 8.5 mg/dl Total Bilirubin 0.9 mg/dl Aspartate Amino Transf (AST/SGOT) 58 U/L Alanine Aminotransferase (ALT/SGPT) 39 U/L Alkaline Phosphatase 133 U/L Total Protein 6.9 gm/dl Albumin 2.4 gm/dl Globulin 4.5 gm/dl Albumin/Globulin Ratio 0.5 Lipase 228 U/L Procalcitonin 1.08 ng/ml Assessment and Plan abd pain--secondary to pancreatitis pancreatitis--pain level the same. Lipase has returned to normal. elevated lipids--but not high enough for pancreatitis elevated WBC--worse diarrhea---worse elevated LFTS---was normal and up today--follow Etiology of pancreatitis not clear. Viral is possible. GB sludge passing through bile duct possible but no current blockage of bile duct. Continue supportive care. Lipids need followed as outpt. EBV IGG pos indicating previous infection (IgM negative). For diarrhea and rising WBC will check stool for Cdiff. Spoke with DR Santamaria also about getting ID involved and to think about fungal infection since he has been on broad spectrum abx for some time. Defer to DR Santamaria on additional ID recs.
--- NOTE | 2018-01-20 14:59 | Progress Note ---
Progress Note Date of Service Jan 20, 2018. Progress Note ID Consult Dictated #[id number] A/P: 1. Pancreatitis 2. Fever -Will change abx to imipenem and fluconzole, follow cultures -If fever persists, would repeat imaging r/o pseudocyst, consider ct chest as risk for ARDS as well -Discussed with primary, will follow, thank you
--- NOTE | 2018-01-20 15:50 | INFECT. DISEASE CONSULTATION ---
DATE OF CONSULTATION: 01/20/2018 HISTORY OF PRESENT ILLNESS: This is a 22-year-old gentleman who was admitted to [facility] on 01/13/2018 secondary to epigastric abdominal pain. This began 1 day prior to admission. He did have nausea and vomiting prior to admission to the hospital. In the Emergency Room, he was found to have a markedly elevated lipase and a CAT scan of the abdomen and pelvis was done on the which was consistent with acute pancreatitis. His LFTs have been relatively normal with only mild elevation of his AST. He has had persistent fever since admission to the hospital on the . His T-max was 38.6 on the , 39.1 on the , 39.4 on the , 38.8 on the , 39.3 on the , 38.1 and overnight 38.8. He states that he has no shakes or rigors with his fevers, but he does feel generally unwell during febrile episode. His last documented fever of 38.8 was at 12:00 this morning. He has otherwise been afebrile. He was started empirically on vancomycin and Zosyn since admission to the hospital. He is tolerating antibiotics well. He denies any diarrhea. He continues to complain of abdominal pain and states that it has not changed significantly since admission to the hospital. He describes this as left-sided abdominal pain with some radiation to the epigastric area. He denies any additional radiation. He is eating and drinking relatively well but states he has no appetite. He denies any additional vomiting. He denies any chest pain or cough. He does have some pain in his abdomen with deep inspiration. His most recent chest x-ray was done this morning which shows small bilateral effusions which have been unchanged. He has had multiple imaging studies of the abdomen. Most recently he had an MRI on the which showed fluid collections and inflammation consistent with acute pancreatitis. He also had an MRCP which did not show any evidence of gallbladder obstruction. He is also being followed by GI. Due to his persistent fevers, infectious diseases was consulted. He has had multiple blood cultures on the and the which are negative to date. He has also had multiple urine cultures on the and and those are negative as well. He continues on vancomycin and Zosyn. His remaining review of systems is unremarkable. MEDICAL AND SURGICAL HISTORY: He has no known medical or surgical history. FAMILY HISTORY: Noncontributory. ALLERGIES: He has no known drug allergies. SOCIAL HISTORY: Negative for tobacco use and drug use. He states he drinks occasionally. He currently is a student at [employer]. He has 2 roommates, both of which are well. He is a math major. He is originally from [place], but states that his family recently moved to [place]. He recently traveled by car to [place], but denies any other travel history or plane rides. CURRENT MEDICATIONS: Include vancomycin, Dilaudid, Tylenol, Colace, Protonix, Xopenex, Zosyn, Toradol, and Zofran. PHYSICAL EXAMINATION: VITAL SIGNS: Currently, he is afebrile. His T-max overnight is 38.8, pulse 102, respiratory rate 16, blood pressure 137/90, oxygen saturation is 95% on room air. GENERAL: He is awake, alert and oriented x3 on my examination. HEENT: Mucous membranes are dry. Extraocular muscles are intact. HEART: Regular. LUNGS: Clear bilaterally. ABDOMEN: Soft and minimally distended. There is pain, epigastrically in the left upper quadrant. EXTREMITIES: There is no lower extremity edema bilaterally. SKIN: Without rash. LABORATORY STUDIES: CBC today, white blood cell count 12.8 down from 20,000 on admission, hemoglobin 11.4, platelets 292. Chemistry panel: Sodium 139, potassium 3.6, chloride 107, bicarbonate 24, BUN 3, creatinine 1.0, glucose 90, AST mildly elevated today at 58, ALT 39, total bilirubin is 0.9. Procalcitonin is 1.0 down from 2.8 yesterday. Most recent lipase was today and is normal at 228. It was 4171 on admission and peaked at 4430. UA, most recently on the is negative. Urine drug screen in the ER was negative and alcohol level was negative. Flu swab was negative. Hepatitis B and mono screening is negative. Blood cultures from the and are no growth to date and all sets of urine cultures are negative. Repeat blood cultures were obtained this morning and are pending. Chest x-ray this morning is as above. Additional abdominal imaging is reviewed. ASSESSMENT AND PLAN: 1. Pancreatitis. 2. Febrile illness is certainly superimposed infection, is of concern and his antibiotics that will be broadened. There was some concern by GI for fungal infection and antifungal will be prescribed as well. Blood cultures will be followed. If he continues with persistent fever after change in antibiotics, certainly repeat imaging would be recommended. Additionally, Doppler examinations for DVT should be considered for noninfectious etiologies for fever, although pancreatitis can cause prolonged fever and that would certainly apply in this case. I do not suspect a drug-induced fever as he has been febrile since admission and has had no significant worsening on beta-lactam antibiotics. We will follow along with you. Thank you for this consultation.
[2018-01-20] MEDS: IMIPENEM/CILASTATIN IV 500 MG in DEXTROSE 5% 100ML 100 ML IV SCH ×2 (16:23→21:06)
[2018-01-20] MEDS: FLUCONAZOLE / NSS 200 MG in PREMIXED NSS 100 ML IV SCH (17:43)
--- NOTE | 2018-01-20 20:01 | Pharmacy Progress Note ---
Pharmacy Abx Dose Short Note Date of Service Jan 20, 2018. Assessment & Plan Assessment 22 year old male receiving vancomycin + primaxin IV for treatment of pancreatitis, HAP. * Today is day # 5 of antimicrobial therapy * All cultures are negative to date * Pt initially on vanco + zosyn -> fungal coverage added and gram negative coverage broadened to primaxin today Plan Vancomycin * Trough level of 17.9 mcg/mL is therapeutic * Continue dose of 1250 mg IV every 6 hours * Goal trough level : 15 to 20 mcg/mL * Repeat trough will be ordered with continuation of therapy/change in clinical status Pharmacy will continue to follow and will adjust dose/frequency as necessary. Thank you.
[2018-01-21] VITALS (12 sets, daily range): BP systolic 138–156; BP diastolic 71–90; PULSE 84–110; TEMP 36.6–37.9; O2SAT 95–99
[2018-01-21] MEDS: NSS + 20MEQ KCL 1000ML 1,000 ML IV SCH ×2 (01:00→11:09)
[2018-01-21] MEDS: IMIPENEM/CILASTATIN IV 500 MG in DEXTROSE 5% 100ML 100 ML IV SCH ×4 (03:16→21:55)
[2018-01-21] MEDS: LEVALBUTEROL 0.63MG/3 ML NEB INH SCH ×6 (03:28→23:03)
[2018-01-21] MEDS: HYDROmorphone HCL 0.5MG/ML 50 ML CASSETTE IV PRN (04:14)
[2018-01-21] MEDS: VANCOMYCIN IV 1,250 MG in SODIUM CHLORIDE 0.9% 250ML 250 ML IV SCH ×4 (04:21→21:55)
[2018-01-21 07:05] LABS: BASO % 0.1 %; BASO ABS # 0.01 K/uL (0-0.2); EOS ABS # 0.12 K/uL (0-0.5); HEMATOCRIT 30.3 % (42-52); HEMOGLOBIN 10.2 g/dL (14.0-18.0); IG# 0.08 K/uL (0.00-0.02); LYMPH % 10.9 %; LYMPH ABS # 1.35 K/uL (1.2-3.4); MEAN CELL VOLUME 93.5 fL (80-100); MEAN CORPUSCULAR HEMOGLOBIN 31.5 pg (25-34); MEAN CORPUSCULAR HGB CONC 33.7 g/dl (32-36); MEAN PLATELET VOLUME 9.7 fL (7.4-10.4); MONO % 10.4 %; MONO ABS # 1.29 K/uL (0.11-0.59); NEUT ABS # 9.53 K/uL (1.4-6.5); PLATELET COUNT 346 K/uL (130-400); RED CELL DISTRIBUTION WIDTH CV 13.1 % (11.5-14.5); RED CELL DISTRIBUTION WIDTH SD 44.7 fL (36.4-46.3); WHITE BLOOD COUNT 12.38 K/uL (4.8-10.8)
[2018-01-21 07:33] LABS: ALBUMIN 2.4 gm/dl (3.4-5.0); CALCIUM 8.6 mg/dl (8.5-10.1); CREATININE 1.11 mg/dl (0.60-1.40); POTASSIUM 3.8 mmol/L (3.5-5.1)
[2018-01-21 07:35] LABS: TOTAL PROTEIN 6.6 gm/dl (6.4-8.2)
--- NOTE | 2018-01-21 08:27 | Family Medicine Progress Note ---
Progress Note Date of Service Jan 21, 2018. Subjective Pt evaluation today including: conversation w/ patient, physical exam, chart review, lab review Pain: 6-7/10 abdominal pain PO Intake: tolerating Voiding: no voiding problems This AM complaining of fever, abdominal pain 6-7/10. Sob when moves. Denies n/v. Constitutional: + fever Respiratory: + shortness of breath (when moves) Cardiovascular: No chest pain Abdomen: + pain, No nausea, No vomiting Male : No dysuria Medications Current Inpatient Medications Medications (Trade) Dose Ordered Sig/Judith Route Start Time Stop Time Status Last Admin Dose Admin Ondansetron HCl (Zofran Inj) 4 mg Q6H PRN IV 01/14/18 00:45 02/13/18 00:44 01/14/18 07:38 4 MG Levalbuterol (Xopenex 0.63 Mg/ 3 Ml Neb) 0.63 mg Q4R INH 01/16/18 04:00 02/15/18 03:59 01/21/18 07:03 0.63 MG Acetaminophen (Tylenol Tab) 650 mg Q4 PRN PO 01/16/18 12:00 02/15/18 00:00 01/20/18 19:38 650 MG Miscellaneous Information (Consult) 1 ea UD PRN N/A 01/16/18 20:30 02/15/18 20:29 Pantoprazole Sodium 40 mg/ Syringe 10 ml @ 5 mls/min DAILY@11 IV 01/17/18 11:00 02/16/18 10:59 01/20/18 11:09 5 MLS/MIN Potassium Chloride/Sodium Chloride 1,000 ml @ 100 mls/hr Q10H IV 01/16/18 21:00 02/15/18 20:59 01/20/18 21:06 100 MLS/HR Lorazepam 0.5 mg/ Syringe 1 ml @ 1 mls/min HS PRN IV 01/17/18 00:45 02/16/18 00:44 Lorazepam (Ativan Inj) 0.5 mg HS PRN IV 01/17/18 00:45 02/16/18 00:44 01/17/18 23:11 1 MG Lorazepam 0.5 mg/ Syringe 1 ml @ 1 mls/min Q6H PRN IV 01/17/18 03:00 02/16/18 02:59 Lorazepam (Ativan Inj) 0.5 mg Q6H PRN IV 01/17/18 03:00 02/16/18 02:59 01/19/18 00:25 0.5 MG Docusate Sodium (coLACE CAP) 100 mg BID PO 01/17/18 21:00 02/16/18 20:59 01/20/18 18:05 100 MG Simethicone (Mylicon Chew Tab) 80 mg Q6H PRN PO 01/17/18 18:15 02/16/18 18:14 01/17/18 18:33 80 MG Enoxaparin Sodium (Lovenox Inj) 40 mg QAM SQ 01/18/18 09:00 02/17/18 08:59 01/20/18 07:55 40 MG Naloxone HCl (Narcan Inj) 0.1 mg Q5M PRN IV 01/18/18 11:45 02/17/18 11:44 Hydromorphone HCl (Dilaudid [employer]) 25 mg PRN PRN IV 01/18/18 11:45 02/01/18 11:44 01/21/18 04:14 25 MG Sodium Chloride 1,000 ml @ 15 mls/hr Q24H IV 01/18/18 11:38 02/17/18 11:37 01/19/18 12:01 15 MLS/HR Oxycodone HCl (Roxicodone Immediate Rel Tab) 5 mg Q4 PRN PO 01/18/18 16:30 02/01/18 16:29 01/20/18 22:23 5 MG Vancomycin HCl 1250 mg/Sodium Chloride 275 ml @ 125 mls/hr Q6H IV 01/19/18 20:00 01/26/18 19:59 01/21/18 04:21 125 MLS/HR Imipenem/ Cilastatin Sodium 500 mg/Dextrose 110 ml @ 100 mls/hr Q6H IV 01/20/18 16:00 01/30/18 15:59 01/21/18 03:16 100 MLS/HR Fluconazole/ Sodium Chloride 200 mg/Prmx 100 ml @ 100 mls/hr DAILY@1800 IV 01/20/18 18:00 01/30/18 17:59 01/20/18 17:43 100 MLS/HR Objective Vital Signs Date Time Temp Pulse Resp B/P (MAP) Pulse Ox O2 Delivery O2 Flow Rate FiO2 01/21/18 08:18 36.8 109 18 138/76 (96) 99 01/21/18 07:03 102 16 95 Room Air 01/21/18 04:00 Room Air 01/21/18 03:34 37.9 102 18 143/90 (107) 95 Room Air 01/21/18 00:00 Room Air 01/20/18 23:39 37.3 106 17 146/77 (100) 93 Room Air 01/20/18 20:00 Room Air 01/20/18 19:34 37.9 118 18 152/93 (112) 95 Room Air 01/20/18 19:22 107 16 95 Room Air 01/20/18 16:00 Room Air 01/20/18 15:48 36.8 118 20 137/89 (105) 92 Room Air 01/20/18 15:09 110 16 95 Room Air 01/20/18 12:00 Room Air 01/20/18 11:57 36.6 102 16 137/90 (106) 95 Room Air 01/20/18 11:33 101 16 94 Room Air Physical Exam General Appearance: + mild distress, + pertinent finding (diaphoretic) Eyes: normal inspection Neck: supple Respiratory/Chest: lungs clear, normal breath sounds, + decreased breath sounds (bilateral lung bases) Cardiovascular: no murmur, + tachycardia, + pertinent finding (Regular rhythm) Abdomen: normal bowel sounds, soft, + tenderness (diffuse TTP > over LUQ; no rebound) Extremities: non-tender, no pedal edema Neurologic/Psychiatric: alert, oriented x 3 Skin: + diaphoresis Laboratory Results 01/21/18 06:16 Red Blood Count 3.24, Mean Corpuscular Volume 93.5, Mean Corpuscular Hemoglobin 31.5, Mean Corpuscular Hemoglobin Concent 33.7, Mean Platelet Volume 9.7, Neutrophils (%) (Auto) 77.0, Lymphocytes (%) (Auto) 10.9, Monocytes (%) (Auto) 10.4, Eosinophils (%) (Auto) 1.0, Basophils (%) (Auto) 0.1, Neutrophils # (Auto ) 9.53, Lymphocytes # (Auto) 1.35, Monocytes # (Auto) 1.29, Eosinophils # (Auto ) 0.12, Basophils # (Auto) 0.01 01/21/18 06:16 Test 01/20/18 15:51 01/21/18 06:16 Vancomycin Level Trough 17.9 mcg/ml (SEE COMMENT) White Blood Count 12.38 K/uL (4.8-10.8) Red Blood Count 3.24 M/uL (4.7-6.1) Hemoglobin 10.2 g/dL (14.0-18.0) Hematocrit 30.3 % (42-52) Mean Corpuscular Volume 93.5 fL (80-100) Mean Corpuscular Hemoglobin 31.5 pg (25-34) Mean Corpuscular Hemoglobin Concent 33.7 g/dl (32-36) Platelet Count 346 K/uL (130-400) Mean Platelet Volume 9.7 fL (7.4-10.4) Neutrophils (%) (Auto) 77.0 % Lymphocytes (%) (Auto) 10.9 % Monocytes (%) (Auto) 10.4 % Eosinophils (%) (Auto) 1.0 % Basophils (%) (Auto) 0.1 % Neutrophils # (Auto) 9.53 K/uL (1.4-6.5) Lymphocytes # (Auto) 1.35 K/uL (1.2-3.4) Monocytes # (Auto) 1.29 K/uL (0.11-0.59) Eosinophils # (Auto) 0.12 K/uL (0-0.5) Basophils # (Auto) 0.01 K/uL (0-0.2) RDW Standard Deviation 44.7 fL (36.4-46.3) RDW Coefficient of Variation 13.1 % (11.5-14.5) Immature Granulocyte % (Auto) 0.6 % Immature Granulocyte # (Auto) 0.08 K/uL (0.00-0.02) Anion Gap 7.0 mmol/L (3-11) Est Creatinine Clear Calc Drug Dose 99.3 ml/min Estimated GFR () 110.2 Estimated GFR (Non- 95.1 BUN/Creatinine Ratio 4.2 (10-20) Calcium Level 8.6 mg/dl (8.5-10.1) Total Bilirubin 0.8 mg/dl (0.2-1) Aspartate Amino Transf (AST/SGOT) 49 U/L (15-37) Alanine Aminotransferase (ALT/SGPT) 40 U/L (12-78) Alkaline Phosphatase 119 U/L (45-117) Total Protein 6.6 gm/dl (6.4-8.2) Albumin 2.4 gm/dl (3.4-5.0) Globulin 4.2 gm/dl (2.5-4.0) Albumin/Globulin Ratio 0.6 (0.9-2) Lipase 180 U/L (73-393) Assessment and Plan 22 yo healthy male admitted on for acute pancreatitis on 01/14/18. Continues to spike fevers: this AM and ON 37.9. Concern for superinfection and ID consulted. Changed abx to imipenem/vancomycin and added antifungal for concern of fungal superinfection by GI. Acute Pancreatitis and Ileus: -Unknown etiology -Likely secondary to gallbladder sludge with no obstruction -On and off febrile episodes despite antibiotics -MRI 01/18- no evidence of acute worsening -Continue Dilaudid HEATING ELEMENT REPAIRER for pain control -Continue Zofran as needed for nausea -Continue IVF - NS and KCl 100mls/hr -Dced Zosyn -Continue Vanc -Started on imipenem and fluconazole -Advanced diet to full liquids - tolerating -GI consulted: -MRCP noted findings c/w acute pancreatitis, bilateral effusions, and abdominal ascites -serologic studies: positive EBV IgG (previous infection); Hep A, B, C negative; influenza neg; mycoplasma antibodies pending -lipids follow up outpatient - not elevated enough for pancreatitis -concern for fungal infection given persistent febrile episodes - recommended ID consult -Consulted ID: per Dr. Ramos fevers likely from pancreatitis vs. superinfection - broadened antibiotic coverage to imipenem/vanc and started on fluconazole for antifungal coverage - recommended repeat imaging if fever persists of pancreas to r/ot pseudocyst and chest Ct to rule out ARDS Atelectasis vs. Hospital-acquired pneumonia: SOB with movement -On imipenem/vanc which should provide adequate pulm coverage -Small pleural effusions seen on imaging NELL - improved: Initial Cr 1.72, down to 1.1 after IVF SIRS + Sepsis: See above, initially pancreatitis SIRS, now sepsis from pneumonia. Patient's ongoing fever is likely concerning for other bacterial superinfection -BCx 01/20 pending -Repeated BCx NGTD and UCx neg - 01/18 Impaired fasting glucose - improved: Likely secondary to abnormal pancreatic function, improving; 92 this AM DVT prophy: SCDs Code: Full Dispo: Med/surg Resident Physician Supervision Note: I was present with Dr. Martin during the history and exam. I discussed the case with the resident and agree with the findings and plan as documented in the note. Any exceptions or clarifications are listed here: The patient's pain seems about the same by his account, although looks as if he is using HEATING ELEMENT REPAIRER less frequently. No fever overnight. Also note resting tachycardia (around 100), and reported to 140 with ambulation. The patient denies dyspnea at rest, but some dyspnea with ambulation. PLAN 1) CT chest to evaluate for PE. Will also help clarify chest x-ray findings ( infection versus atelectasis), and eliminate a concurrent pericarditis. 2) Preliminary rheumatology labs (ESR, CRP, RF) along with peripheral smear and hemoglobulinopathy evaluation. Inflammatory markers will admittedly be elevated , but degree of elevation may shed some light and will also be useful to monitor trends in the future. 3) Change Dilaudid HEATING ELEMENT REPAIRER IV morphine PRN (not HEATING ELEMENT REPAIRER). Documented By: Soren Santamaria Resident Involvement: Resident Care Provided Care Provided: Adult Hospital Medicine
[2018-01-21] MEDS: PANTOprazole INJ 40 MG in SYRINGE 0 ML IV SCH (08:48)
[2018-01-21] MEDS: DOCUSATE SODIUM 100 MG CAP PO SCH ×2 (08:49→20:26)
[2018-01-21] MEDS: ENOXAPARIN 40 MG/0.4 ML SYR SQ SCH (08:49)
[2018-01-21] MEDS ORDERED: OPTIRAY 320 IV PRN (10:45)
--- NOTE | 2018-01-21 11:07 | Progress Note ---
Subjective Date of Service: Jan 21, 2018. Subjective Pt evaluation today including: conversation w/ patient, physical exam, chart review, lab review, conversation w/ senior telecommunications consultant pt seen in followup, still with abd pain, no n/v/d overnight, little po intake. abd pain remains left sided without radiation, states unchanged. having sob with ambulation and also found to have tachycardia. no cp. no cough. tolerating abx. all cultures negative to date. still with fever overnight but intermittent and fever curve improved, tmax 37.9. wbc remains unchanged. all remaining ros reviewed and are negative. Problem List Medical Problems: (1) Acute pancreatitis Status: Acute (2) Ascites Status: Acute (3) Gastroenteritis Status: Acute (4) Hepatic steatosis Status: Acute (5) Parapneumonic effusion Status: Acute (6) Pneumonia Status: Acute (7) Thrombocytopenia Status: Acute Objective Vital Signs Date Time Temp Pulse Resp B/P (MAP) Pulse Ox O2 Delivery O2 Flow Rate FiO2 01/21/18 08:18 36.8 109 18 138/76 (96) 99 01/21/18 08:00 Room Air 01/21/18 07:03 102 16 95 Room Air 01/21/18 04:00 Room Air 01/21/18 03:34 37.9 102 18 143/90 (107) 95 Room Air 01/21/18 00:00 Room Air 01/20/18 23:39 37.3 106 17 146/77 (100) 93 Room Air 01/20/18 20:00 Room Air 01/20/18 19:34 37.9 118 18 152/93 (112) 95 Room Air 01/20/18 19:22 107 16 95 Room Air 01/20/18 16:00 Room Air 01/20/18 15:48 36.8 118 20 137/89 (105) 92 Room Air 01/20/18 15:09 110 16 95 Room Air 01/20/18 12:00 Room Air 01/20/18 11:57 36.6 102 16 137/90 (106) 95 Room Air 01/20/18 11:33 101 16 94 Room Air Physical Exam General Appearance: WD/WN, no apparent distress Eyes: normal inspection, EOMI Neck: supple Respiratory/Chest: lungs clear, normal breath sounds, no respiratory distress Cardiovascular: regular rate, rhythm, no edema, no murmur, + tachycardia Abdomen: soft, + tenderness Extremities: non-tender, no pedal edema Neurologic/Psychiatric: alert, oriented x 3 Skin: normal color Laboratory Results Item Value Date Time Blood Culture - Final Complete 01/15/181941 Blood NO GROWTH Blood Culture - Final Complete 01/15/181920 Blood NO GROWTH Blood Culture - Preliminary Resulted 01/18/18 1224 Blood NO GROWTH TO DATE. Blood Culture - Preliminary Resulted 01/18/18 1206 Blood NO GROWTH TO DATE. Last 24 Hours Test 01/20/18 15:51 01/21/18 06:16 01/21/18 10:45 Vancomycin Level Trough 17.9 mcg/ml White Blood Count 12.38 K/uL Red Blood Count 3.24 M/uL Hemoglobin 10.2 g/dL Hematocrit 30.3 % Mean Corpuscular Volume 93.5 fL Mean Corpuscular Hemoglobin 31.5 pg Mean Corpuscular Hemoglobin Concent 33.7 g/dl Platelet Count 346 K/uL Mean Platelet Volume 9.7 fL Neutrophils (%) (Auto) 77.0 % Lymphocytes (%) (Auto) 10.9 % Monocytes (%) (Auto) 10.4 % Eosinophils (%) (Auto) 1.0 % Basophils (%) (Auto) 0.1 % Neutrophils # (Auto) 9.53 K/uL Lymphocytes # (Auto) 1.35 K/uL Monocytes # (Auto) 1.29 K/uL Eosinophils # (Auto) 0.12 K/uL Basophils # (Auto) 0.01 K/uL RDW Standard Deviation 44.7 fL RDW Coefficient of Variation 13.1 % Immature Granulocyte % (Auto) 0.6 % Immature Granulocyte # (Auto) 0.08 K/uL Sodium Level 140 mmol/L Potassium Level 3.8 mmol/L Chloride Level 108 mmol/L Carbon Dioxide Level 25 mmol/L Anion Gap 7.0 mmol/L Blood Urea Nitrogen 5 mg/dl Creatinine 1.11 mg/dl Est Creatinine Clear Calc Drug Dose 99.3 ml/min Estimated GFR () 110.2 Estimated GFR (Non- 95.1 BUN/Creatinine Ratio 4.2 Random Glucose 92 mg/dl Calcium Level 8.6 mg/dl Total Bilirubin 0.8 mg/dl Aspartate Amino Transf (AST/SGOT) 49 U/L Alanine Aminotransferase (ALT/SGPT) 40 U/L Alkaline Phosphatase 119 U/L Total Protein 6.6 gm/dl Albumin 2.4 gm/dl Globulin 4.2 gm/dl Albumin/Globulin Ratio 0.6 Lipase 180 U/L Assessment and Plan (1) Acute pancreatitis Assessment & Plan: pt will remain on current emperic abx. follow cultures. have suggested cta due to sinus tachy, sob to r/o PE, also concern for ARDS or possible pericarditis related to pancreatitis, all of which could explain ongoing fever. will follow. Problem Qualifiers (1) Acute pancreatitis: Pancreatitis type: unspecified pancreatitis type Acute pancreatitis complication: unspecified Qualified Codes: K85.90 - Acute pancreatitis without necrosis or infection, unspecified
[2018-01-21] MEDS: OXYCODONE HCL IR 5 MG TAB (IMMEDIATE RELEASE) PO PRN ×3 (11:09→19:36)
--- NOTE | 2018-01-21 12:12 | DIAGNOSTIC IMAGING REPORT ---
CHEST CTA for PULMONARY ARTERIES CT DOSE: 391.56 mGycm HISTORY: Short of breath. TECHNIQUE: Multiaxial CT images of the chest were performed following the intravenous administration of contrast to evaluate the pulmonary arteries. Maximal intensity projection images were also obtained. A dose lowering technique was utilized adhering to the principles of ALARA. COMPARISON STUDY: Chest 01/20/2018. Abdomen and pelvis CT 01/15/2018. FINDINGS: Normal caliber thoracic aorta with no evidence for dissection. The heart is normal in size. Small right and moderate left pleural effusions persist. Respiratory motion artifact resulting in suboptimal evaluation of the majority of the segmental and subsegmental pulmonary arteries. However, there are no definite filling defects to suggest pulmonary embolus. No mediastinal or hilar lymphadenopathy. Abdominal ascites has improved. Peripancreatic inflammatory changes only partially visualized. Complete compressive atelectasis of the left lower lobe and partial compressive atelectasis of the right lower lobe due to the pleural effusions. No fractures within the visualized osseous structures. Small amount of mucoid material within the proximal trachea. Otherwise, the central airways are patent. No pneumothorax. There is also a small amount of consolidation within the lingula posteriorly. This is also likely due to compressive atelectasis from the pleural effusion. IMPRESSION: 1. No definite evidence for pulmonary embolus. 2. Moderate left and small right pleural effusions persist. There is associated consolidation of the bilateral lower lobes which favors compressive atelectasis from the pleural effusions. 3. The abdominal ascites has improved. 4. The peripancreatic inflammatory change is partially visualized. Electronically signed by: Wagner Dominique M.D. 01/21/2018 12:11 PM Dictated Date/Time: 01/21/2018 12:03 PM
--- NOTE | 2018-01-21 13:45 | Gastroenterology Progress Note ---
Progress Note Date of Service: Jan 21, 2018 Subjective Pt evaluation today including: conversation w/ patient, physical exam, chart review, lab review, review of studies, review of inpatient medication list cc f/u abd pain, pancreattiis HPI States LUQ pain worse today. Only one stool today. States he forgot to save stool for nurse so no Cdiff sent. Had SOB complaint today and CTA chest done neg for PE. Review of Systems Respiratory: + shortness of breath Cardiac: No chest pain Medications Current Inpatient Medications Medications (Trade) Dose Ordered Sig/Judith Route Start Time Stop Time Status Last Admin Dose Admin Ondansetron HCl (Zofran Inj) 4 mg Q6H PRN IV 01/14/18 00:45 02/13/18 00:44 01/14/18 07:38 4 MG Levalbuterol (Xopenex 0.63 Mg/ 3 Ml Neb) 0.63 mg Q4R INH 01/16/18 04:00 02/15/18 03:59 01/21/18 07:03 0.63 MG Acetaminophen (Tylenol Tab) 650 mg Q4 PRN PO 01/16/18 12:00 02/15/18 00:00 01/20/18 19:38 650 MG Miscellaneous Information (Consult) 1 ea UD PRN N/A 01/16/18 20:30 02/15/18 20:29 Pantoprazole Sodium 40 mg/ Syringe 10 ml @ 5 mls/min DAILY@11 IV 01/17/18 11:00 02/16/18 10:59 01/21/18 08:48 5 MLS/MIN Potassium Chloride/Sodium Chloride 1,000 ml @ 100 mls/hr Q10H IV 01/16/18 21:00 02/15/18 20:59 Future Hold 01/21/18 11:09 100 MLS/HR Lorazepam 0.5 mg/ Syringe 1 ml @ 1 mls/min HS PRN IV 01/17/18 00:45 02/16/18 00:44 Lorazepam (Ativan Inj) 0.5 mg HS PRN IV 01/17/18 00:45 02/16/18 00:44 01/17/18 23:11 1 MG Lorazepam 0.5 mg/ Syringe 1 ml @ 1 mls/min Q6H PRN IV 01/17/18 03:00 02/16/18 02:59 Lorazepam (Ativan Inj) 0.5 mg Q6H PRN IV 01/17/18 03:00 02/16/18 02:59 01/19/18 00:25 0.5 MG Docusate Sodium (coLACE CAP) 100 mg BID PO 01/17/18 21:00 02/16/18 20:59 01/21/18 08:49 100 MG Simethicone (Mylicon Chew Tab) 80 mg Q6H PRN PO 01/17/18 18:15 02/16/18 18:14 01/17/18 18:33 80 MG Enoxaparin Sodium (Lovenox Inj) 40 mg QAM SQ 01/18/18 09:00 02/17/18 08:59 01/21/18 08:49 40 MG Oxycodone HCl (Roxicodone Immediate Rel Tab) 5 mg Q4 PRN PO 01/18/18 16:30 02/01/18 16:29 01/21/18 11:09 5 MG Vancomycin HCl 1250 mg/Sodium Chloride 275 ml @ 125 mls/hr Q6H IV 01/19/18 20:00 01/26/18 19:59 01/21/18 10:48 125 MLS/HR Imipenem/ Cilastatin Sodium 500 mg/Dextrose 110 ml @ 100 mls/hr Q6H IV 01/20/18 16:00 01/30/18 15:59 01/21/18 08:48 100 MLS/HR Fluconazole/ Sodium Chloride 200 mg/Prmx 100 ml @ 100 mls/hr DAILY@1800 IV 01/20/18 18:00 01/30/18 17:59 01/20/18 17:43 100 MLS/HR Morphine Sulfate (MoRPHine SULFATE INJ) 2 mg Q2H PRN IV 01/21/18 10:15 02/04/18 10:14 Ioversol (Optiray 320) 125 ml UD PRN IV 01/21/18 10:45 01/25/18 10:44 Objective Vital Signs Date Time Temp Pulse Resp B/P (MAP) Pulse Ox O2 Delivery O2 Flow Rate FiO2 01/21/18 12:10 36.6 108 18 141/71 (94) 99 01/21/18 12:01 Room Air 01/21/18 08:18 36.8 109 18 138/76 (96) 99 01/21/18 08:00 Room Air 01/21/18 07:03 102 16 95 Room Air 01/21/18 04:00 Room Air 01/21/18 03:34 37.9 102 18 143/90 (107) 95 Room Air 01/21/18 00:00 Room Air 01/20/18 23:39 37.3 106 17 146/77 (100) 93 Room Air 01/20/18 20:00 Room Air 01/20/18 19:34 37.9 118 18 152/93 (112) 95 Room Air 01/20/18 19:22 107 16 95 Room Air 01/20/18 16:00 Room Air 01/20/18 15:48 36.8 118 20 137/89 (105) 92 Room Air 01/20/18 15:09 110 16 95 Room Air Physical Exam General Appearance: WD/WN, no apparent distress Respiratory/Chest: lungs clear, normal breath sounds Cardiovascular: regular rate, rhythm, no murmur Abdomen: normal bowel sounds, soft, no organomegaly, + pertinent finding ( subjective LUQ pain but no guarding nor rebound) Laboratory Results Last 24 Hours Test 01/20/18 15:51 01/21/18 06:16 01/21/18 10:45 Vancomycin Level Trough 17.9 mcg/ml White Blood Count 12.38 K/uL Red Blood Count 3.24 M/uL Hemoglobin 10.2 g/dL Hematocrit 30.3 % Mean Corpuscular Volume 93.5 fL Mean Corpuscular Hemoglobin 31.5 pg Mean Corpuscular Hemoglobin Concent 33.7 g/dl Platelet Count 346 K/uL Mean Platelet Volume 9.7 fL Neutrophils (%) (Auto) 77.0 % Lymphocytes (%) (Auto) 10.9 % Monocytes (%) (Auto) 10.4 % Eosinophils (%) (Auto) 1.0 % Basophils (%) (Auto) 0.1 % Neutrophils # (Auto) 9.53 K/uL Lymphocytes # (Auto) 1.35 K/uL Monocytes # (Auto) 1.29 K/uL Eosinophils # (Auto) 0.12 K/uL Basophils # (Auto) 0.01 K/uL RDW Standard Deviation 44.7 fL RDW Coefficient of Variation 13.1 % Immature Granulocyte % (Auto) 0.6 % Immature Granulocyte # (Auto) 0.08 K/uL Peripheral Blood Smear Path Consult Erythrocyte Sedimentation Rate 84 mm/hr Sodium Level 140 mmol/L Potassium Level 3.8 mmol/L Chloride Level 108 mmol/L Carbon Dioxide Level 25 mmol/L Anion Gap 7.0 mmol/L Blood Urea Nitrogen 5 mg/dl Creatinine 1.11 mg/dl Est Creatinine Clear Calc Drug Dose 99.3 ml/min Estimated GFR () 110.2 Estimated GFR (Non- 95.1 BUN/Creatinine Ratio 4.2 Random Glucose 92 mg/dl Calcium Level 8.6 mg/dl Total Bilirubin 0.8 mg/dl Aspartate Amino Transf (AST/SGOT) 49 U/L Alanine Aminotransferase (ALT/SGPT) 40 U/L Alkaline Phosphatase 119 U/L C-Reactive Protein 27.30 mg/dl Total Protein 6.6 gm/dl Albumin 2.4 gm/dl Globulin 4.2 gm/dl Albumin/Globulin Ratio 0.6 Lipase 180 U/L Assessment and Plan abd pain--secondary to pancreatitis--worse today so downgrade diet to clears. pancreatitis--pain level worse. Lipase remains elevated lipids--but not high enough for pancreatitis elevated WBC--improved diarrhea---about the same, cdiff ordered. elevated LFTS---improved versus yesterday Etiology of pancreatitis not clear. Viral is possible. GB sludge passing through bile duct possible but no current blockage of bile duct. Continue supportive care. Lipids need followed as outpt. EBV IGG pos indicating previous infection (IgM negative).
[2018-01-21] MEDS: FLUCONAZOLE / NSS 200 MG in PREMIXED NSS 100 ML IV SCH (18:28)
[2018-01-21] MEDS: MoRPHine SULFATE 2 MG/ML CARP IV PRN ×2 (20:26→23:19)
[2018-01-22] MEDS: OXYCODONE HCL IR 5 MG TAB (IMMEDIATE RELEASE) PO PRN ×4 (02:30→21:10)
[2018-01-22] MEDS: LEVALBUTEROL 0.63MG/3 ML NEB INH SCH ×2 (04:00→07:07)
[2018-01-22] MEDS: IMIPENEM/CILASTATIN IV 500 MG in DEXTROSE 5% 100ML 100 ML IV SCH ×4 (04:52→21:11)
[2018-01-22] MEDS: VANCOMYCIN IV 1,250 MG in SODIUM CHLORIDE 0.9% 250ML 250 ML IV SCH ×4 (04:52→22:31)
[2018-01-22 04:58] VITALS: BP 135/83; PULSE 91; TEMP 37.7; O2SAT 94
[2018-01-22 07:32] LABS: BASO % 0.2 %; BASO ABS # 0.02 K/uL (0-0.2); EOS % 1.2 %; EOS ABS # 0.16 K/uL (0-0.5); HEMATOCRIT 30.6 % (42-52); HEMOGLOBIN 10.2 g/dL (14.0-18.0); IG# 0.11 K/uL (0.00-0.02); MEAN CELL VOLUME 93.6 fL (80-100); MEAN CORPUSCULAR HEMOGLOBIN 31.2 pg (25-34); MEAN CORPUSCULAR HGB CONC 33.3 g/dl (32-36); MEAN PLATELET VOLUME 9.5 fL (7.4-10.4); MONO % 14.5 %; MONO ABS # 1.92 K/uL (0.11-0.59); NEUT % 77.3 %; NEUT ABS # 10.24 K/uL (1.4-6.5); PLATELET COUNT 567 K/uL (130-400); RED CELL DISTRIBUTION WIDTH CV 13.2 % (11.5-14.5); RED CELL DISTRIBUTION WIDTH SD 45.3 fL (36.4-46.3); WHITE BLOOD COUNT 13.25 K/uL (4.8-10.8)
[2018-01-22] MEDS: ONDANSETRON INJ 2 MG/ML 2 ML VIAL IV PRN ×2 (07:45→19:57)
[2018-01-22] MEDS: ENOXAPARIN 40 MG/0.4 ML SYR SQ SCH (07:46)
[2018-01-22] MEDS: DOCUSATE SODIUM 100 MG CAP PO SCH ×2 (07:46→21:11)
[2018-01-22 07:55] VITALS: BP 138/86; PULSE 83; TEMP 37.5; O2SAT 98
[2018-01-22 08:06] LABS: CREATININE 0.96 mg/dl (0.60-1.40)
[2018-01-22 08:07] LABS: ALBUMIN 2.4 gm/dl (3.4-5.0); CALCIUM 8.6 mg/dl (8.5-10.1); POTASSIUM 3.3 mmol/L (3.5-5.1)
[2018-01-22 08:09] LABS: TOTAL PROTEIN 6.9 gm/dl (6.4-8.2)
--- NOTE | 2018-01-22 09:05 | Family Medicine Progress Note ---
Progress Note Date of Service Jan 22, 2018. Subjective Pt evaluation today including: conversation w/ patient, physical exam, chart review, lab review Pain: same 6/10 abdominal pain PO Intake: degraded to clears tolerating Voiding: no voiding problems This AM reports 6/10 persistent and now diffuse abdominal pain. Abdomen feels more tense. Sob persistent due to pain when taking a deep breath. Had 3 episodes of diarrhea since yesterday. No fever this AM Constitutional: No fever Respiratory: + shortness of breath, No cough Cardiovascular: No chest pain Abdomen: + pain, + nausea, + diarrhea, No vomiting Male : No dysuria Medications Current Inpatient Medications Medications (Trade) Dose Ordered Sig/Judith Route Start Time Stop Time Status Last Admin Dose Admin Ondansetron HCl (Zofran Inj) 4 mg Q6H PRN IV 01/14/18 00:45 02/13/18 00:44 01/22/18 07:45 4 MG Levalbuterol (Xopenex 0.63 Mg/ 3 Ml Neb) 0.63 mg Q4R INH 01/16/18 04:00 02/15/18 03:59 01/21/18 19:23 0.63 MG Acetaminophen (Tylenol Tab) 650 mg Q4 PRN PO 01/16/18 12:00 02/15/18 00:00 01/20/18 19:38 650 MG Miscellaneous Information (Consult) 1 ea UD PRN N/A 01/16/18 20:30 02/15/18 20:29 Pantoprazole Sodium 40 mg/ Syringe 10 ml @ 5 mls/min DAILY@11 IV 01/17/18 11:00 02/16/18 10:59 01/21/18 08:48 5 MLS/MIN Potassium Chloride/Sodium Chloride 1,000 ml @ 100 mls/hr Q10H IV 01/16/18 21:00 02/15/18 20:59 Future Hold 01/21/18 11:09 100 MLS/HR Lorazepam 0.5 mg/ Syringe 1 ml @ 1 mls/min HS PRN IV 01/17/18 00:45 02/16/18 00:44 Lorazepam (Ativan Inj) 0.5 mg HS PRN IV 01/17/18 00:45 02/16/18 00:44 01/17/18 23:11 1 MG Lorazepam 0.5 mg/ Syringe 1 ml @ 1 mls/min Q6H PRN IV 01/17/18 03:00 02/16/18 02:59 Lorazepam (Ativan Inj) 0.5 mg Q6H PRN IV 01/17/18 03:00 02/16/18 02:59 01/19/18 00:25 0.5 MG Docusate Sodium (coLACE CAP) 100 mg BID PO 01/17/18 21:00 02/16/18 20:59 01/22/18 07:46 100 MG Simethicone (Mylicon Chew Tab) 80 mg Q6H PRN PO 01/17/18 18:15 02/16/18 18:14 01/17/18 18:33 80 MG Enoxaparin Sodium (Lovenox Inj) 40 mg QAM SQ 01/18/18 09:00 02/17/18 08:59 01/22/18 07:46 40 MG Oxycodone HCl (Roxicodone Immediate Rel Tab) 5 mg Q4 PRN PO 01/18/18 16:30 02/01/18 16:29 01/22/18 02:30 5 MG Vancomycin HCl 1250 mg/Sodium Chloride 275 ml @ 125 mls/hr Q6H IV 01/19/18 20:00 01/26/18 19:59 01/22/18 04:52 125 MLS/HR Imipenem/ Cilastatin Sodium 500 mg/Dextrose 110 ml @ 100 mls/hr Q6H IV 01/20/18 16:00 01/30/18 15:59 01/22/18 04:52 100 MLS/HR Fluconazole/ Sodium Chloride 200 mg/Prmx 100 ml @ 100 mls/hr DAILY@1800 IV 01/20/18 18:00 01/30/18 17:59 01/21/18 18:28 100 MLS/HR Morphine Sulfate (MoRPHine SULFATE INJ) 2 mg Q2H PRN IV 01/21/18 10:15 02/04/18 10:14 01/21/18 23:19 2 MG Ioversol (Optiray 320) 125 ml UD PRN IV 01/21/18 10:45 01/25/18 10:44 Objective Vital Signs Date Time Temp Pulse Resp B/P (MAP) Pulse Ox O2 Delivery O2 Flow Rate FiO2 01/22/18 07:55 37.5 83 18 138/86 (103) 98 Room Air 01/22/18 04:58 37.7 91 18 135/83 (100) 94 Room Air 01/22/18 04:00 Room Air 01/22/18 00:00 Room Air 01/21/18 23:04 37.1 102 18 156/83 (107) 96 Room Air 01/21/18 20:00 97 Room Air 01/21/18 19:55 37.3 92 18 143/87 (105) 97 Room Air 01/21/18 19:23 84 16 96 Room Air 01/21/18 16:10 37.0 110 16 153/90 (111) 97 Room Air 01/21/18 16:00 96 Room Air 2.0 01/21/18 15:00 87 16 96 Room Air 01/21/18 12:10 36.6 108 18 141/71 (94) 99 01/21/18 12:01 Room Air Physical Exam General Appearance: no apparent distress Eyes: normal inspection Neck: supple Respiratory/Chest: lungs clear, + decreased breath sounds (bilateral lung bases ) Cardiovascular: regular rate, rhythm, no murmur Abdomen: normal bowel sounds, + distended, + tenderness (diffuse mild TTP worse in LUQ) Extremities: non-tender, no pedal edema Neurologic/Psychiatric: alert, oriented x 3 Skin: + diaphoresis (somewhat) Laboratory Results 01/22/18 06:47 Red Blood Count 3.27, Mean Corpuscular Volume 93.6, Mean Corpuscular Hemoglobin 31.2, Mean Corpuscular Hemoglobin Concent 33.3, Mean Platelet Volume 9.5, Neutrophils (%) (Auto) 77.3, Lymphocytes (%) (Auto) 6.0, Monocytes (%) (Auto) 14.5, Eosinophils (%) (Auto) 1.2, Basophils (%) (Auto) 0.2, Neutrophils # (Auto ) 10.24, Lymphocytes # (Auto) 0.80, Monocytes # (Auto) 1.92, Eosinophils # (Auto ) 0.16, Basophils # (Auto) 0.02 01/22/18 06:47 Test 01/21/18 10:45 01/22/18 06:47 01/22/18 07:10 White Blood Count 13.25 K/uL (4.8-10.8) Red Blood Count 3.27 M/uL (4.7-6.1) Hemoglobin 10.2 g/dL (14.0-18.0) Hematocrit 30.6 % (42-52) Mean Corpuscular Volume 93.6 fL (80-100) Mean Corpuscular Hemoglobin 31.2 pg (25-34) Mean Corpuscular Hemoglobin Concent 33.3 g/dl (32-36) Platelet Count 567 K/uL (130-400) Mean Platelet Volume 9.5 fL (7.4-10.4) Neutrophils (%) (Auto) 77.3 % Lymphocytes (%) (Auto) 6.0 % Monocytes (%) (Auto) 14.5 % Eosinophils (%) (Auto) 1.2 % Basophils (%) (Auto) 0.2 % Neutrophils # (Auto) 10.24 K/uL (1.4-6.5) Lymphocytes # (Auto) 0.80 K/uL (1.2-3.4) Monocytes # (Auto) 1.92 K/uL (0.11-0.59) Eosinophils # (Auto) 0.16 K/uL (0-0.5) Basophils # (Auto) 0.02 K/uL (0-0.2) RDW Standard Deviation 45.3 fL (36.4-46.3) RDW Coefficient of Variation 13.2 % (11.5-14.5) Immature Granulocyte % (Auto) 0.8 % Immature Granulocyte # (Auto) 0.11 K/uL (0.00-0.02) Anion Gap 9.0 mmol/L (3-11) Est Creatinine Clear Calc Drug Dose 114.8 ml/min Estimated GFR () 131.4 Estimated GFR (Non- 113.3 BUN/Creatinine Ratio 5.6 (10-20) Calcium Level 8.6 mg/dl (8.5-10.1) Total Bilirubin 0.7 mg/dl (0.2-1) Aspartate Amino Transf (AST/SGOT) 31 U/L (15-37) Alanine Aminotransferase (ALT/SGPT) 33 U/L (12-78) Alkaline Phosphatase 106 U/L (45-117) Total Protein 6.9 gm/dl (6.4-8.2) Albumin 2.4 gm/dl (3.4-5.0) Globulin 4.5 gm/dl (2.5-4.0) Albumin/Globulin Ratio 0.5 (0.9-2) Lipase 175 U/L (73-393) Procalcitonin 0.45 ng/ml (0-0.5) Stool Occult Blood NEGATIVE (NEGATIVE) Assessment and Plan 22 yo healthy male admitted on for acute pancreatitis on 01/14/18. Continues to spike temperature: this AM 37.7 compared to 37.9 yesterday. WBC continues to uptrend. ID on board. Concern for possible abscess/worsening pancreatitis. No PNA, pericarditis or PE per CT chest on 01/21. On abx imipenem/vancomycin and fluconazole. Acute Pancreatitis and Ileus: -Unknown etiology -Likely secondary to gallbladder sludge with no obstruction -On and off temp spikes episodes despite antibiotics -MRI 01/18- no evidence of acute worsening -Continue Morphine 2mg Q2H PRN and Oxycodone 5mg Q4H PRN for pain control -Continue Zofran as needed for nausea -Off Zosyn -Continue Vanc -Continue imipenem and fluconazole -Downgraded diet to clears from full liquids - nauseous -GI consulted: -MRCP noted findings c/w acute pancreatitis, bilateral effusions, and abdominal ascites -serologic studies: positive EBV IgG (previous infection); Hep A, B, C negative; influenza neg; mycoplasma IgG pos but IgM neg -lipids follow up outpatient - not elevated enough for pancreatitis -concern for fungal infection given persistent febrile episodes - recommended ID consult -Consulted ID: per Dr. Ramos fevers likely from pancreatitis vs. superinfection - broadened antibiotic coverage to imipenem/vanc and started on fluconazole for antifungal coverage - recommended repeat imaging if fever persists of pancreas to r/ot pseudocyst and chest Ct to rule out ARDS - Ct completed no concern for PE, pericarditis or PNA except bilateral pleural effusions with compressive atelectasis -Will consider re-imaging and touch base with GI Anemia Hgb 10.2 - stable; given gallbladder sludge hx concern for hemoglobinopathy such as hereditary spherocytosis - peripheral smear consistent with normocytic anemia likely reactive in the setting of acute infection - Hgb electrophoresis pending Autoimmune work-up given WBC elevation and lack of response to broad spectrum Abx - ESR elevated 84 - CRP elevated 27.3 - RF pending Atelectasis vs. Hospital-acquired pneumonia: SOB with movement -On imipenem/vanc which should provide adequate pulm coverage -CT PE: Small pleural effusions with compressive atelectasis, no PE Diarrhea: persistent - Stool negative for occult blood - Scx pending - consider C. diff testing NELL - improved: Initial Cr 1.72, down to 0.96 after IVF SIRS + Sepsis: See above, initially pancreatitis SIRS, now sepsis from pneumonia. Patient's ongoing fever is likely concerning for other bacterial superinfection -BCx 01/20 NGTD -UCx neg - 01/18 Impaired fasting glucose - improved: Likely secondary to abnormal pancreatic function, improving; 107 this AM DVT prophy: SCDs Code: Full Dispo: Med/surg Resident Physician Supervision Note: I was present with Dr. Martin during the history and exam. I discussed the case with the resident and agree with the findings and plan as documented in the note. Clinically, he looks a little better this afternoon. He is ambulating in the hallway with his girlfriend. On paper, his WBC is slightly up, but his procalcitonin is normal. He is afebrile over the last 24 hours. On imaging, he looks worse - the gallbladder wall is thickened (and distended, although this may be secondary to fasting), and there has been interval development of several pancreatic pseudocysts. His c-diff is positive, and this may be the cause of his elevated WBC and some of his abdominal pain. I discussed the case with general surgery. I also discussed the current findings with the patient and his step father, who is also a surgeon. Discussed that is surgical intervention is required, would likely need to be done at a tertiary care facility. The step father indicated that he and the family had already discussed this possibility - and he has already spoken to colleagues at [facility] and [facility] - however, given the patient's overall look currently, they are comfortable keeping him presently. PLAN 1) Add PO vancomycin to cover c-diff. 2) Continue current antibiotic regimen; discontinue fluconazole. 3) Fluids were held today which actually promoted ambulation. Will resume IVF this evening. Overall, he is +18L. 4) If unable to advance diet tomorrow or Friday, will need to address means for nutrition. 5) If recurrence of fever, increased pain, or other signs of progressive infection, will need to discuss transfer to tertiary care facility. Documented By: Soren Santamaria Resident Involvement: Resident Care Provided Care Provided: Adult [facility] Medicine
[2018-01-22] MEDS ORDERED: POTASSIUM CHLORIDE 20 MEQ TABCR PO STA (09:12)
[2018-01-22] MEDS: PANTOprazole INJ 40 MG in SYRINGE 0 ML IV SCH (09:53)
[2018-01-22] MEDS ORDERED: LEVALBUTEROL 0.63MG/3 ML NEB INH PRN (10:30)
[2018-01-22] MEDS ORDERED: OPTIRAY 320 IV PRN (10:45)
--- NOTE | 2018-01-22 11:03 | Gastroenterology Progress Note ---
Progress Note Date of Service: Jan 22, 2018 Subjective Pt evaluation today including: conversation w/ patient, physical exam, chart review, lab review, review of studies, review of inpatient medication list cc f/u pancreatisi HPI Pt states abd pain level about the same today but now diffuse rather than localized to LUQ. Still with loose stools. A stool was sent this am for cx but Cdiff order apparently timed out and was not collected- spoke wiht nurse about adding to specimen already sent or collecting one today and told patient to save stool. Medications Current Inpatient Medications Medications (Trade) Dose Ordered Sig/Judith Route Start Time Stop Time Status Last Admin Dose Admin Ondansetron HCl (Zofran Inj) 4 mg Q6H PRN IV 01/14/18 00:45 02/13/18 00:44 01/22/18 07:45 4 MG Levalbuterol (Xopenex 0.63 Mg/ 3 Ml Neb) 0.63 mg Q4R INH 01/16/18 04:00 02/15/18 03:59 01/21/18 19:23 0.63 MG Acetaminophen (Tylenol Tab) 650 mg Q4 PRN PO 01/16/18 12:00 02/15/18 00:00 01/20/18 19:38 650 MG Miscellaneous Information (Consult) 1 ea UD PRN N/A 01/16/18 20:30 02/15/18 20:29 Pantoprazole Sodium 40 mg/ Syringe 10 ml @ 5 mls/min DAILY@11 IV 01/17/18 11:00 02/16/18 10:59 01/22/18 09:53 5 MLS/MIN Potassium Chloride/Sodium Chloride 1,000 ml @ 100 mls/hr Q10H IV 01/16/18 21:00 02/15/18 20:59 Future Hold 01/21/18 11:09 100 MLS/HR Lorazepam 0.5 mg/ Syringe 1 ml @ 1 mls/min HS PRN IV 01/17/18 00:45 02/16/18 00:44 Lorazepam (Ativan Inj) 0.5 mg HS PRN IV 01/17/18 00:45 02/16/18 00:44 01/17/18 23:11 1 MG Lorazepam 0.5 mg/ Syringe 1 ml @ 1 mls/min Q6H PRN IV 01/17/18 03:00 02/16/18 02:59 Lorazepam (Ativan Inj) 0.5 mg Q6H PRN IV 01/17/18 03:00 02/16/18 02:59 01/19/18 00:25 0.5 MG Docusate Sodium (coLACE CAP) 100 mg BID PO 01/17/18 21:00 02/16/18 20:59 01/22/18 07:46 100 MG Simethicone (Mylicon Chew Tab) 80 mg Q6H PRN PO 01/17/18 18:15 02/16/18 18:14 01/17/18 18:33 80 MG Enoxaparin Sodium (Lovenox Inj) 40 mg QAM SQ 01/18/18 09:00 02/17/18 08:59 01/22/18 07:46 40 MG Oxycodone HCl (Roxicodone Immediate Rel Tab) 5 mg Q4 PRN PO 01/18/18 16:30 02/01/18 16:29 01/22/18 02:30 5 MG Vancomycin HCl 1250 mg/Sodium Chloride 275 ml @ 125 mls/hr Q6H IV 01/19/18 20:00 01/26/18 19:59 01/22/18 09:46 125 MLS/HR Imipenem/ Cilastatin Sodium 500 mg/Dextrose 110 ml @ 100 mls/hr Q6H IV 01/20/18 16:00 01/30/18 15:59 01/22/18 09:46 100 MLS/HR Fluconazole/ Sodium Chloride 200 mg/Prmx 100 ml @ 100 mls/hr DAILY@1800 IV 01/20/18 18:00 01/30/18 17:59 01/21/18 18:28 100 MLS/HR Morphine Sulfate (MoRPHine SULFATE INJ) 2 mg Q2H PRN IV 01/21/18 10:15 02/04/18 10:14 01/21/18 23:19 2 MG Ioversol (Optiray 320) 125 ml UD PRN IV 01/21/18 10:45 01/25/18 10:44 Levalbuterol (Xopenex 0.63 Mg/ 3 Ml Neb) 0.63 mg Q4 PRN INH 01/22/18 10:30 02/21/18 10:29 UNV Ioversol (Optiray 320) 100 ml UD PRN IV 01/22/18 10:45 01/26/18 10:44 UNV Objective Vital Signs Date Time Temp Pulse Resp B/P (MAP) Pulse Ox O2 Delivery O2 Flow Rate FiO2 01/22/18 08:00 Room Air 01/22/18 07:55 37.5 83 18 138/86 (103) 98 Room Air 01/22/18 04:58 37.7 91 18 135/83 (100) 94 Room Air 01/22/18 04:00 Room Air 01/22/18 00:00 Room Air 01/21/18 23:04 37.1 102 18 156/83 (107) 96 Room Air 01/21/18 20:00 97 Room Air 01/21/18 19:55 37.3 92 18 143/87 (105) 97 Room Air 01/21/18 19:23 84 16 96 Room Air 01/21/18 16:10 37.0 110 16 153/90 (111) 97 Room Air 01/21/18 16:00 96 Room Air 2.0 01/21/18 15:00 87 16 96 Room Air 01/21/18 12:10 36.6 108 18 141/71 (94) 99 01/21/18 12:01 Room Air Physical Exam General Appearance: WD/WN, no apparent distress Respiratory/Chest: lungs clear, no respiratory distress Cardiovascular: regular rate, rhythm, no edema Abdomen: normal bowel sounds, soft, no organomegaly, + guarding (LUQ but no rebound) Neurologic/Psych: normal mood/affect, oriented x 3 Skin: normal color Laboratory Results Last 24 Hours Test 01/22/18 06:47 01/22/18 07:10 White Blood Count 13.25 K/uL Red Blood Count 3.27 M/uL Hemoglobin 10.2 g/dL Hematocrit 30.6 % Mean Corpuscular Volume 93.6 fL Mean Corpuscular Hemoglobin 31.2 pg Mean Corpuscular Hemoglobin Concent 33.3 g/dl Platelet Count 567 K/uL Mean Platelet Volume 9.5 fL Neutrophils (%) (Auto) 77.3 % Lymphocytes (%) (Auto) 6.0 % Monocytes (%) (Auto) 14.5 % Eosinophils (%) (Auto) 1.2 % Basophils (%) (Auto) 0.2 % Neutrophils # (Auto) 10.24 K/uL Lymphocytes # (Auto) 0.80 K/uL Monocytes # (Auto) 1.92 K/uL Eosinophils # (Auto) 0.16 K/uL Basophils # (Auto) 0.02 K/uL RDW Standard Deviation 45.3 fL RDW Coefficient of Variation 13.2 % Immature Granulocyte % (Auto) 0.8 % Immature Granulocyte # (Auto) 0.11 K/uL Sodium Level 141 mmol/L Potassium Level 3.3 mmol/L Chloride Level 110 mmol/L Carbon Dioxide Level 22 mmol/L Anion Gap 9.0 mmol/L Blood Urea Nitrogen 5 mg/dl Creatinine 0.96 mg/dl Est Creatinine Clear Calc Drug Dose 114.8 ml/min Estimated GFR () 131.4 Estimated GFR (Non- 113.3 BUN/Creatinine Ratio 5.6 Random Glucose 107 mg/dl Calcium Level 8.6 mg/dl Total Bilirubin 0.7 mg/dl Aspartate Amino Transf (AST/SGOT) 31 U/L Alanine Aminotransferase (ALT/SGPT) 33 U/L Alkaline Phosphatase 106 U/L Total Protein 6.9 gm/dl Albumin 2.4 gm/dl Globulin 4.5 gm/dl Albumin/Globulin Ratio 0.5 Lipase 175 U/L Procalcitonin 0.45 ng/ml Stool Occult Blood NEGATIVE Assessment and Plan abd pain--secondary to pancreatitis--diffuse today--CT ordered and pending pancreatitis--pain level now diffuse, lipase is normal. elevated lipids--but not high enough for pancreatitis elevated WBC--worse--see if worsening pancreatitis or abscess on CT, Fever curve trending down. diarrhea---about the same, stool culture pending. Spoke with nurse about Cdiff. elevated LFTS---normal today Etiology of pancreatitis not clear. Viral is possible. GB sludge passing through bile duct possible but no current blockage of bile duct. Continue supportive care. Lipids need followed as outpt. I am going off service tomorrow 01/23/[address] Barrientos is on schedule to be assuming GI care then. EBV IGG pos indicating previous infection (IgM negative). Mycoplasma IgG pos and IgM neg so previous infection.
[2018-01-22 11:32] VITALS: BP 131/85; PULSE 83; TEMP 37.1; O2SAT 94
--- NOTE | 2018-01-22 13:21 | DIAGNOSTIC IMAGING REPORT ---
CT SCAN OF THE ABDOMEN WITH IV CONTRAST CLINICAL HISTORY: Pancreatitis. Leukocytosis. Fever. COMPARISON STUDY: Abdominal CT dated 01/15/2018. TECHNIQUE: Following the IV administration of 95 cc of Optiray 320, CT scan of the abdomen is performed from the lung bases to the pelvic inlet. Images are reviewed in the axial, sagittal, and coronal planes. IV contrast was administered without complication. A dose lowering technique was utilized adhering to the principles of ALARA. CT DOSE: 331.27 mGycm FINDINGS: Lung bases: The heart is normal in size and without pericardial effusion. There are small to moderate pleural effusions, left larger than right with associated bibasilar consolidation. Liver: The contrast-enhanced liver is mildly enlarged, measuring 18.7 cm and length. The liver demonstrates diminished attenuation suggesting hepatic steatosis. Fatty sparing is seen adjacent to gallbladder fossa. There is no intrahepatic biliary ductal dilatation. The hepatic veins and portal veins are patent. Gallbladder: The gallbladder is distended. The gallbladder wall is thickened and there is pericystic inflammatory change. The appearance is consistent with acute cholecystitis. Spleen: Normal in size and attenuation. Pancreas: The pancreas is enlarged and edematous. There is peripancreatic inflammation and fluid, and the appearance is consistent with acute pancreatitis. The gland enhances homogeneously. The splenic vein is patent. Adrenal glands: Unremarkable. Kidneys: The contrast enhanced kidneys are normal in size and without hydronephrosis. The kidneys enhance symmetrically. Abdominal vasculature: The abdominal aorta is normal in course and caliber. Bowel: There is no evidence of bowel obstruction. The imaged loops of small bowel and colon are normal in appearance. Peritoneum: There is a small volume of upper abdominal ascites. There are numerous multilocular thick walled collections identified consistent with pancreatic pseudocysts. A multiloculated collection is seen inferior to the stomach on image #173. This measures approximately 4.5 x 7.5 x 10 cm in aggregate dimension as measurement image #174. A loculated collection along the greater curvature of the stomach measures approximately 7 x 8 x 4.5 cm as seen on image #147. Loculated fluid is seen around the pancreatic tail and extending towards the splenic hilum. This measures approximately 6 x 2 cm as seen on axial image #139. A loculation of fluid along the gastrohepatic space seen on image #119 measures 3.5 x 3.5 cm. Additional smaller fluid locules are identified. No intraperitoneal free air is seen. There is a small fat-containing umbilical hernia Lymphadenopathy: There are numerous prominent retroperitoneal and mesenteric lymph nodes, likely on a reactive basis. Skeletal structures: No lytic or blastic lesions are seen. IMPRESSION: 1. Findings are consistent with acute cholecystitis. 2. Again seen are changes of acute pancreatitis. The gland enhances homogeneously and the splenic vein is patent. 3. There are several large, multiloculated, and thick-walled fluid collections scattered throughout the upper abdomen, greatest around the stomach and pancreas. These are typical in appearance for pancreatic pseudocysts. The sterility of these collections cannot be evaluated by CT. 4. Small to moderate pleural effusions, left larger than right with associated bibasilar consolidation. 5. Hepatomegaly and mild hepatic steatosis. 6. Additional findings as above. Electronically signed by: Mehul Bob M.D. 01/22/2018 1:19 PM Dictated Date/Time: 01/22/2018 1:09 PM
--- NOTE | 2018-01-22 14:41 | Progress Note ---
Subjective Date of Service: Jan 22, 2018. Subjective Pt evaluation today including: conversation w/ patient, conversation w/ family , physical exam, chart review, lab review pt seen in followup, family at bedside, still with pain, unchanged. remains on emperic abx, all cultures negative to date, c diff + but pt denies diarrhea, started on po vanco. cta negative for PE, atelectasis lll, still with abd pain with breathing but denies sob. no cp. no n/v/d. tolerating clears only. ct abd today with contrast now with concerns for acutre cholecystitis and multiple fluid filled pseudocysts, surgical eval pending. fevers better, isolated low grade fever at 4 am otherwise afebrile. all remaining ros reviewed and are negative. Problem List Medical Problems: (1) Acute pancreatitis Status: Acute (2) Ascites Status: Acute (3) Gastroenteritis Status: Acute (4) Hepatic steatosis Status: Acute (5) Parapneumonic effusion Status: Acute (6) Pneumonia Status: Acute (7) Thrombocytopenia Status: Acute Objective Vital Signs Date Time Temp Pulse Resp B/P (MAP) Pulse Ox O2 Delivery O2 Flow Rate FiO2 01/22/18 12:17 Room Air 01/22/18 11:32 37.1 83 18 131/85 (100) 94 01/22/18 08:00 Room Air 01/22/18 07:55 37.5 83 18 138/86 (103) 98 Room Air 01/22/18 04:58 37.7 91 18 135/83 (100) 94 Room Air 01/22/18 04:00 Room Air 01/22/18 00:00 Room Air 01/21/18 23:04 37.1 102 18 156/83 (107) 96 Room Air 01/21/18 20:00 97 Room Air 01/21/18 19:55 37.3 92 18 143/87 (105) 97 Room Air 01/21/18 19:23 84 16 96 Room Air 01/21/18 16:10 37.0 110 16 153/90 (111) 97 Room Air 01/21/18 16:00 96 Room Air 2.0 01/21/18 15:00 87 16 96 Room Air Physical Exam General Appearance: WD/WN, no apparent distress Eyes: normal inspection, PERRL Neck: supple Respiratory/Chest: lungs clear, normal breath sounds, no respiratory distress Cardiovascular: regular rate, rhythm, no edema Abdomen: soft, + tenderness Extremities: non-tender, no pedal edema Neurologic/Psychiatric: alert, oriented x 3 Skin: normal color Laboratory Results Item Value Date Time Blood Culture - Preliminary Resulted 01/20/18 0922 Blood NO GROWTH TO DATE. Blood Culture - Preliminary Resulted 01/20/18 0912 Blood NO GROWTH TO DATE. Blood Culture - Preliminary Resulted 01/18/18 1224 Blood NO GROWTH TO DATE. Blood Culture - Preliminary Resulted 01/18/18 1206 Blood NO GROWTH TO DATE. Blood Culture - Final Complete 01/15/18 1942 Blood NO GROWTH Blood Culture - Final Complete 01/15/18 1921 Blood NO GROWTH C.difficile Toxin B Gene (PCR) - Final Complete 01/22/18 0710 Stool Positive for C. difficile toxin B gene Last 24 Hours Test 01/22/18 06:47 01/22/18 07:10 White Blood Count 13.25 K/uL Red Blood Count 3.27 M/uL Hemoglobin 10.2 g/dL Hematocrit 30.6 % Mean Corpuscular Volume 93.6 fL Mean Corpuscular Hemoglobin 31.2 pg Mean Corpuscular Hemoglobin Concent 33.3 g/dl Platelet Count 567 K/uL Mean Platelet Volume 9.5 fL Neutrophils (%) (Auto) 77.3 % Lymphocytes (%) (Auto) 6.0 % Monocytes (%) (Auto) 14.5 % Eosinophils (%) (Auto) 1.2 % Basophils (%) (Auto) 0.2 % Neutrophils # (Auto) 10.24 K/uL Lymphocytes # (Auto) 0.80 K/uL Monocytes # (Auto) 1.92 K/uL Eosinophils # (Auto) 0.16 K/uL Basophils # (Auto) 0.02 K/uL RDW Standard Deviation 45.3 fL RDW Coefficient of Variation 13.2 % Immature Granulocyte % (Auto) 0.8 % Immature Granulocyte # (Auto) 0.11 K/uL Sodium Level 141 mmol/L Potassium Level 3.3 mmol/L Chloride Level 110 mmol/L Carbon Dioxide Level 22 mmol/L Anion Gap 9.0 mmol/L Blood Urea Nitrogen 5 mg/dl Creatinine 0.96 mg/dl Est Creatinine Clear Calc Drug Dose 114.8 ml/min Estimated GFR () 131.4 Estimated GFR (Non- 113.3 BUN/Creatinine Ratio 5.6 Random Glucose 107 mg/dl Calcium Level 8.6 mg/dl Total Bilirubin 0.7 mg/dl Aspartate Amino Transf (AST/SGOT) 31 U/L Alanine Aminotransferase (ALT/SGPT) 33 U/L Alkaline Phosphatase 106 U/L Total Protein 6.9 gm/dl Albumin 2.4 gm/dl Globulin 4.5 gm/dl Albumin/Globulin Ratio 0.5 Lipase 175 U/L Procalcitonin 0.45 ng/ml Stool Occult Blood NEGATIVE Assessment and Plan (1) Acute pancreatitis Assessment & Plan: continue abx, follow cultures. po vanco started. surgical eval pending. will follow. discussed with primary. Problem Qualifiers (1) Acute pancreatitis: Pancreatitis type: unspecified pancreatitis type Acute pancreatitis complication: unspecified Qualified Codes: K85.90 - Acute pancreatitis without necrosis or infection, unspecified
[2018-01-22] MEDS: VANCOMYCIN HCL 125 MG/2.5ML SOLN PO SCH ×2 (15:41→21:11)
[2018-01-22] MEDS: RASPBERRY SYRUP 5 ML UDP PO SCH ×2 (15:41→21:11)
[2018-01-22 16:07] VITALS: BP 146/88; PULSE 78; TEMP 37.1; O2SAT 95
[2018-01-22] MEDS: FLUCONAZOLE / NSS 200 MG in PREMIXED NSS 100 ML IV SCH (17:28)
--- NOTE | 2018-01-22 19:00 | SURGICAL CONSULTATION ---
DATE OF CONSULTATION: 01/22/2018 We have been asked by Dr. Santamaria to see this 22-year-old male who presented to the Emergency Room with a complaint of abdominal pain. About two weeks ago. he had an episode that he described as severe flu. It was associated with multiple episodes of vomiting as well as multiple episodes of diarrhea. He denies hematemesis. He denies hematochezia and melena. He then developed abdominal pain that stretched across the upper abdomen bilaterally. It did not radiate through or around to his back. He had never had symptoms like this before. The abdominal pain has persisted. He no longer has the nausea. He is still having diarrhea and has been found to be C. diff positive. He is only having about two-three bowel movements per day; however, but they are all liquid. During the workup for this, he underwent a CT of the abdomen and pelvis on 01/15/2018 that demonstrated progressive interstitial and peripancreatic inflammatory change with an increased amount of abdominal ascites and this was compared to a CT from the . There was mild wall thickening of the duodenum felt to be most likely reactive. He also developed moderate left and small right pleural effusions with dependent bibasilar consolidation suggesting compressive atelectasis. He had a gallbladder ultrasound on the that showed gallbladder sludge, but no stones. He had hepatic steatosis and a small amount of perihepatic fluid. He then had an MRCP that showed no gallstones and no evidence of choledocholithiasis. Pancreas divisum was identified. Findings were consistent with acute pancreatitis. Yesterday, he had a CT of the thorax that demonstrated no evidence of pulmonary embolus, but there was a moderate left and small right pleural effusion. There was associated consolidation felt to be compressible. Repeat CT of the abdomen today now demonstrates multiple pseudocysts, the largest of which measures 10 cm and is located inferior to the stomach. There was still evidence of pancreatitis. PAST MEDICAL HISTORY: None. PAST SURGICAL HISTORY: Adenoidectomy. MEDICATIONS AT HOME: None. ALLERGIES: None. SOCIAL HISTORY: He does not smoke or chew tobacco and drinks alcohol on occasion. PHYSICAL EXAMINATION: GENERAL: Reveals a well-developed, well-nourished male who at the present time appears in no acute distress. VITAL SIGNS: Blood pressure 146/88, heart rate 70, respirations 16, temperature 37.1, pulse oximetry is 95% on room air. HEENT: Reveals sclerae to be anicteric. Mucous membranes are moist. NECK: Supple, with no adenopathy. BACK: Has no spinal or CVA tenderness. LUNGS: Clear. HEART: Regular. ABDOMEN: Has decreased bowel sounds, but they are of normal pitch. His abdomen is mildly distended. He is tender across the upper abdomen with the midline and left being greater than the right. There is no costal margin tenderness. EXTREMITIES: Revealed no edema. LABORATORY DATA: Most recently reveals a WBC of 13.5. On admission, it was 20.28, but on the , it had fallen to 8.55. His H and H is 10.2 and 30.6, platelet count 567,000. Sodium 141, potassium 3.3, chloride 110, CO2 22, BUN 5, creatinine 0.96, glucose 107, total bilirubin 0.7, AST 31, ALT 33, alkaline phosphatase 106, lipase 175. INR on admission was 1.0. ASSESSMENT AND PLAN: This patient has pancreatitis. He did have some sludge in his gallbladder, but it would be unusual for that to cause this degree of pancreatitis. He also has pancreas divisum, which may be an etiology. He now has developed pseudocyst. There was a suggestion of acute cholecystitis on one of these studies as well. His WBC has increased slowly. He is not febrile and he is clinically feeling better, although the pain persists. I do not think that cholecystectomy would be an option at the present time. The etiology of the pain is most likely the pancreatitis and the tenderness is more in the left. The etiology of the increased white count may be related to cholecystitis, but we must be sure that it is not related to a possible infected pseudocyst as well. I would continue with the IV antibiotics and conservative management. We will continue to follow with you. Thank you for allowing me to see this patient and participate in his care.
[2018-01-22 19:53] VITALS: BP 149/94; PULSE 81; TEMP 37.7; O2SAT 97
[2018-01-22] MEDS: ACETAMINOPHEN 325 MG TAB PO PRN (19:57)
[2018-01-22] MEDS: NSS + 20MEQ KCL 1000ML 1,000 ML IV SCH (21:10)
[2018-01-22 23:57] VITALS: BP 129/85; PULSE 72; TEMP 36.8; O2SAT 96
[2018-01-23] VITALS (9 sets, daily range): BP systolic 116–137; BP diastolic 75–86; PULSE 70–93; TEMP 37–37.7; O2SAT 94–100; Ht 170.2 cm; Wt 70.3 kg
[2018-01-23] MEDS: IMIPENEM/CILASTATIN IV 500 MG in DEXTROSE 5% 100ML 100 ML IV SCH ×4 (04:22→21:42)
[2018-01-23] MEDS: VANCOMYCIN HCL 125 MG/2.5ML SOLN PO SCH ×4 (04:22→21:08)
[2018-01-23] MEDS: VANCOMYCIN IV 1,250 MG in SODIUM CHLORIDE 0.9% 250ML 250 ML IV SCH ×4 (04:22→21:42)
[2018-01-23] MEDS: OXYCODONE HCL IR 5 MG TAB (IMMEDIATE RELEASE) PO PRN ×4 (04:22→22:45)
[2018-01-23] MEDS: RASPBERRY SYRUP 5 ML UDP PO SCH ×4 (04:25→21:08)
[2018-01-23 07:18] LABS: BASO % 0.2 %; BASO ABS # 0.02 K/uL (0-0.2); EOS ABS # 0.22 K/uL (0-0.5); HEMATOCRIT 30.6 % (42-52); HEMOGLOBIN 10.4 g/dL (14.0-18.0); IG# 0.09 K/uL (0.00-0.02); LYMPH % 8.5 %; LYMPH ABS # 0.95 K/uL (1.2-3.4); MEAN CELL VOLUME 93.6 fL (80-100); MEAN CORPUSCULAR HEMOGLOBIN 31.8 pg (25-34); MEAN PLATELET VOLUME 9.5 fL (7.4-10.4); MONO % 13.1 %; MONO ABS # 1.47 K/uL (0.11-0.59); NEUT % 75.4 %; NEUT ABS # 8.46 K/uL (1.4-6.5); PLATELET COUNT 605 K/uL (130-400); RED CELL DISTRIBUTION WIDTH CV 12.9 % (11.5-14.5); RED CELL DISTRIBUTION WIDTH SD 44.2 fL (36.4-46.3); WHITE BLOOD COUNT 11.21 K/uL (4.8-10.8)
[2018-01-23 07:56] LABS: ALBUMIN 2.3 gm/dl (3.4-5.0); CALCIUM 8.2 mg/dl (8.5-10.1); CREATININE 0.94 mg/dl (0.60-1.40); POTASSIUM 3.5 mmol/L (3.5-5.1)
[2018-01-23 07:59] LABS: TOTAL PROTEIN 6.4 gm/dl (6.4-8.2)
[2018-01-23] MEDS: NSS + 20MEQ KCL 1000ML 1,000 ML IV SCH (08:18)
[2018-01-23] MEDS: DOCUSATE SODIUM 100 MG CAP PO SCH ×2 (08:18→21:07)
[2018-01-23] MEDS: ENOXAPARIN 40 MG/0.4 ML SYR SQ SCH (08:18)
--- NOTE | 2018-01-23 08:33 | Family Medicine Progress Note ---
Progress Note Date of Service Jan 23, 2018. Subjective Pt evaluation today including: conversation w/ patient, physical exam, chart review, lab review Pain: 5-6/10 abdominal pain PO Intake: tolerating clear liquid diet Voiding: no voiding problems This AM reports abdominal pain 5-6/10 and worse in the LUQ however less diffuse today. Nausea improved as well. BM more formed now. Still sob at times. Otherwise asymptomatic. Constitutional: No fever Respiratory: + shortness of breath Cardiovascular: No chest pain Abdomen: + pain, + diarrhea, No nausea, No vomiting Male : No dysuria Medications Current Inpatient Medications Medications (Trade) Dose Ordered Sig/Judith Route Start Time Stop Time Status Last Admin Dose Admin Ondansetron HCl (Zofran Inj) 4 mg Q6H PRN IV 01/14/18 00:45 02/13/18 00:44 01/22/18 19:57 4 MG Acetaminophen (Tylenol Tab) 650 mg Q4 PRN PO 01/16/18 12:00 02/15/18 00:00 01/22/18 19:57 650 MG Miscellaneous Information (Consult) 1 ea UD PRN N/A 01/16/18 20:30 02/15/18 20:29 Pantoprazole Sodium 40 mg/ Syringe 10 ml @ 5 mls/min DAILY@11 IV 01/17/18 11:00 02/16/18 10:59 01/22/18 09:53 5 MLS/MIN Lorazepam 0.5 mg/ Syringe 1 ml @ 1 mls/min HS PRN IV 01/17/18 00:45 02/16/18 00:44 Lorazepam (Ativan Inj) 0.5 mg HS PRN IV 01/17/18 00:45 02/16/18 00:44 01/17/18 23:11 1 MG Lorazepam 0.5 mg/ Syringe 1 ml @ 1 mls/min Q6H PRN IV 01/17/18 03:00 02/16/18 02:59 Lorazepam (Ativan Inj) 0.5 mg Q6H PRN IV 01/17/18 03:00 02/16/18 02:59 01/19/18 00:25 0.5 MG Docusate Sodium (coLACE CAP) 100 mg BID PO 01/17/18 21:00 02/16/18 20:59 01/22/18 21:11 100 MG Simethicone (Mylicon Chew Tab) 80 mg Q6H PRN PO 01/17/18 18:15 02/16/18 18:14 01/17/18 18:33 80 MG Enoxaparin Sodium (Lovenox Inj) 40 mg QAM SQ 01/18/18 09:00 02/17/18 08:59 01/22/18 07:46 40 MG Oxycodone HCl (Roxicodone Immediate Rel Tab) 5 mg Q4 PRN PO 01/18/18 16:30 02/01/18 16:29 01/23/18 04:22 5 MG Vancomycin HCl 1250 mg/Sodium Chloride 275 ml @ 125 mls/hr Q6H IV 01/19/18 20:00 01/26/18 19:59 01/23/18 04:22 125 MLS/HR Imipenem/ Cilastatin Sodium 500 mg/Dextrose 110 ml @ 100 mls/hr Q6H IV 01/20/18 16:00 01/30/18 15:59 01/23/18 04:22 100 MLS/HR Morphine Sulfate (MoRPHine SULFATE INJ) 2 mg Q2H PRN IV 01/21/18 10:15 02/04/18 10:14 01/21/18 23:19 2 MG Ioversol (Optiray 320) 125 ml UD PRN IV 01/21/18 10:45 01/25/18 10:44 Levalbuterol (Xopenex 0.63 Mg/ 3 Ml Neb) 0.63 mg Q4 PRN INH 01/22/18 10:30 02/21/18 10:29 Ioversol (Optiray 320) 100 ml UD PRN IV 01/22/18 10:45 01/26/18 10:44 Vancomycin HCl (Vancomycin Oral Soln) 125 mg Q6H PO 01/22/18 15:00 02/01/18 14:59 01/23/18 04:22 125 MG Raspberry (Raspberry Syrup 5ml Cup) 5 ml Q6H PO 01/22/18 15:00 02/05/18 14:59 01/23/18 04:25 5 ML Potassium Chloride/Sodium Chloride 1,000 ml @ 100 mls/hr Q10H IV 01/22/18 21:00 02/15/18 20:59 01/22/18 21:10 100 MLS/HR Objective Vital Signs Date Time Temp Pulse Resp B/P (MAP) Pulse Ox O2 Delivery O2 Flow Rate FiO2 01/23/18 08:04 37.2 71 18 116/75 (89) 94 01/23/18 04:00 Room Air 01/23/18 03:51 37.2 75 18 125/81 (96) 97 Room Air 01/23/18 00:00 Room Air 01/22/18 23:57 36.8 72 18 129/85 (100) 96 01/22/18 20:20 Room Air 01/22/18 19:53 37.7 81 16 149/94 (112) 97 Room Air 01/22/18 16:07 37.1 78 16 146/88 (107) 95 Room Air 01/22/18 16:00 Room Air 01/22/18 12:17 Room Air 01/22/18 11:32 37.1 83 18 131/85 (100) 94 Physical Exam General Appearance: no apparent distress Eyes: normal inspection Neck: supple Respiratory/Chest: lungs clear, + decreased breath sounds (bilateral basilar lung martinez) Cardiovascular: regular rate, rhythm, no murmur Abdomen: normal bowel sounds, + distended, + tenderness (LUQ and RUQ ) Extremities: non-tender, no pedal edema Neurologic/Psychiatric: alert, oriented x 3 Laboratory Results 01/23/18 06:50 Red Blood Count 3.27, Mean Corpuscular Volume 93.6, Mean Corpuscular Hemoglobin 31.8, Mean Corpuscular Hemoglobin Concent 34.0, Mean Platelet Volume 9.5, Neutrophils (%) (Auto) 75.4, Lymphocytes (%) (Auto) 8.5, Monocytes (%) (Auto) 13.1, Eosinophils (%) (Auto) 2.0, Basophils (%) (Auto) 0.2, Neutrophils # (Auto ) 8.46, Lymphocytes # (Auto) 0.95, Monocytes # (Auto) 1.47, Eosinophils # (Auto ) 0.22, Basophils # (Auto) 0.02 01/23/18 06:50 Test 01/23/18 06:50 White Blood Count 11.21 K/uL (4.8-10.8) Red Blood Count 3.27 M/uL (4.7-6.1) Hemoglobin 10.4 g/dL (14.0-18.0) Hematocrit 30.6 % (42-52) Mean Corpuscular Volume 93.6 fL (80-100) Mean Corpuscular Hemoglobin 31.8 pg (25-34) Mean Corpuscular Hemoglobin Concent 34.0 g/dl (32-36) Platelet Count 605 K/uL (130-400) Mean Platelet Volume 9.5 fL (7.4-10.4) Neutrophils (%) (Auto) 75.4 % Lymphocytes (%) (Auto) 8.5 % Monocytes (%) (Auto) 13.1 % Eosinophils (%) (Auto) 2.0 % Basophils (%) (Auto) 0.2 % Neutrophils # (Auto) 8.46 K/uL (1.4-6.5) Lymphocytes # (Auto) 0.95 K/uL (1.2-3.4) Monocytes # (Auto) 1.47 K/uL (0.11-0.59) Eosinophils # (Auto) 0.22 K/uL (0-0.5) Basophils # (Auto) 0.02 K/uL (0-0.2) RDW Standard Deviation 44.2 fL (36.4-46.3) RDW Coefficient of Variation 12.9 % (11.5-14.5) Immature Granulocyte % (Auto) 0.8 % Immature Granulocyte # (Auto) 0.09 K/uL (0.00-0.02) Anion Gap 5.0 mmol/L (3-11) Est Creatinine Clear Calc Drug Dose 117.2 ml/min Estimated GFR () 134.7 Estimated GFR (Non- 116.2 BUN/Creatinine Ratio 6.4 (10-20) Calcium Level 8.2 mg/dl (8.5-10.1) Total Bilirubin 0.7 mg/dl (0.2-1) Aspartate Amino Transf (AST/SGOT) 27 U/L (15-37) Alanine Aminotransferase (ALT/SGPT) 29 U/L (12-78) Alkaline Phosphatase 81 U/L (45-117) Total Protein 6.4 gm/dl (6.4-8.2) Albumin 2.3 gm/dl (3.4-5.0) Globulin 4.1 gm/dl (2.5-4.0) Albumin/Globulin Ratio 0.6 (0.9-2) Lipase 232 U/L (73-393) Assessment and Plan 22 yo healthy male admitted on for acute pancreatitis on 01/14/18. Now with downtrending WBC and fever curve. ID on board. Concern for pancreatic pseudocysts and acute cholecystitis based on repeat abdominal CT on 01/22. Conservative management with IV imipenem/vancomycin. C.diff also positive and on PO vanc. No PNA, pericarditis or PE per CT chest on 01/21. Acute Pancreatitis with pseudocysts: -Unknown etiology -Likely secondary to pancreatic divisum vs. gallbladder sludge with no obstruction -Downtrending fever curve -Repeat CT abdomen 01/22 - acute cholecystitis and numerous large pancreatic pseudocysts -MRI 01/18- no evidence of acute worsening -Continue Morphine 2mg Q2H PRN and Oxycodone 5mg Q4H PRN for pain control -Continue Zofran as needed for nausea -Continue Vanc/Imipenem IV -Continue IVF with KCL at 100mls/hr -Tolerating clear liquid diet no nausea this AM -GI consulted: -MRCP noted findings c/w acute pancreatitis, bilateral effusions, and abdominal ascites -serologic studies: positive EBV IgG (previous infection); Hep A, B, C negative; influenza neg; mycoplasma IgG pos but IgM neg -lipids follow up outpatient - not elevated enough for pancreatitis -Consulted ID: per Dr. Ramos fevers likely from pancreatitis vs. superinfection - broadened antibiotic coverage to imipenem/vanc from vanc/zosyn and started on fluconazole for antifungal coverage (dced fluconazole on 01/22) - recommended repeat imaging if fever persists of pancreas to r/ot pseudocyst and chest Ct to rule out ARDS and continuing abx - Ct completed no concern for PE, pericarditis or PNA except bilateral pleural effusions with compressive atelectasis Diarrhea: improving - C.diff positive - Stool negative for occult blood - Scx pending - Vanc PO 125mg Q6H Atelectasis vs. Hospital-acquired pneumonia: SOB with movement -On imipenem/vanc which should provide adequate pulm coverage -CT PE: Small pleural effusions with compressive atelectasis, no PE Autoimmune work-up given WBC elevation and lack of response to broad spectrum Abx on 01/20 - ESR elevated 84 - CRP elevated 27.3 - RF pending SIRS + Sepsis: See above, initially pancreatitis SIRS, now sepsis from pneumonia. Patient's ongoing fever is likely concerning for other bacterial superinfection -BCx 01/20 NGTD -UCx neg - 01/18 Anemia Hgb 10.2 - stable; given gallbladder sludge hx concern for hemoglobinopathy such as hereditary spherocytosis - peripheral smear consistent with normocytic anemia likely reactive in the setting of acute infection - Hgb electrophoresis pending NELL - improved: Initial Cr 1.72, down to 0.94 after IVF Impaired fasting glucose - improved: Likely secondary to abnormal pancreatic function, improving; 93 this AM DVT prophy: SCDs Code: Full Dispo: Med/surg Resident Involvement: Resident Care Provided Care Provided: Adult Hospital Medicine Assessment/Plan Resident Physician Supervision Note: I was present with Dr. Martin during the history and exam. I discussed the case with the resident and agree with the findings and plan as documented in the note. Any exceptions or clarifications are listed here: continued very incremental improvement in decreased appetite and abdominal discomfort, but is ambulating well with s/o. Discussed w/ patients step-father in room - would like any procedural intervention done at [facility] in [place]. Otherwise, will continue conservative therapy and trial advance diet if acceptable to consultation service.
[2018-01-23] MEDS ORDERED: VANCOMYCIN TROUGH ONE (09:30)
--- NOTE | 2018-01-23 10:51 | Progress Note ---
Subjective Date of Service: Jan 23, 2018. Subjective Pt evaluation today including: conversation w/ patient, physical exam, chart review, lab review pt resting on my exam. states his pain is improved today but remains in LUQ. afebrile overnight, isolated 37.7 yesterday afternoon. on emperic abx, all cultures negative. now on po vanco for + c diff, denies diarrhea. tolerating all abx well. fluconazole stopped. surgery eval yesterday, no plans for OR at this time. breathing improved, denies cp, sob. all remaining ros reviewed and are negative. Problem List Medical Problems: (1) Acute pancreatitis Status: Acute (2) Ascites Status: Acute (3) Gastroenteritis Status: Acute (4) Hepatic steatosis Status: Acute (5) Parapneumonic effusion Status: Acute (6) Pneumonia Status: Acute (7) Thrombocytopenia Status: Acute Objective Vital Signs Date Time Temp Pulse Resp B/P (MAP) Pulse Ox O2 Delivery O2 Flow Rate FiO2 01/23/18 08:04 37.2 71 18 116/75 (89) 94 01/23/18 08:00 Room Air 01/23/18 04:00 Room Air 01/23/18 03:51 37.2 75 18 125/81 (96) 97 Room Air 01/23/18 00:00 Room Air 01/22/18 23:57 36.8 72 18 129/85 (100) 96 01/22/18 20:20 Room Air 01/22/18 19:53 37.7 81 16 149/94 (112) 97 Room Air 01/22/18 16:07 37.1 78 16 146/88 (107) 95 Room Air 01/22/18 16:00 Room Air 01/22/18 12:17 Room Air 01/22/18 11:32 37.1 83 18 131/85 (100) 94 Physical Exam General Appearance: WD/WN, no apparent distress Eyes: normal inspection, EOMI Neck: supple Respiratory/Chest: lungs clear, normal breath sounds, no respiratory distress Cardiovascular: regular rate, rhythm, no edema, no murmur Abdomen: soft, + tenderness Extremities: non-tender, no pedal edema Neurologic/Psychiatric: alert, oriented x 3 Skin: normal color Laboratory Results Item Value Date Time Blood Culture - Preliminary Resulted 01/20/18921 Blood NO GROWTH TO DATE. Blood Culture - Preliminary Resulted 4/24/18 0912 Blood NO GROWTH TO DATE. Blood Culture - Preliminary Resulted 01/18/18 1224 Blood NO GROWTH TO DATE. Blood Culture - Preliminary Resulted 01/18/18 1206 Blood NO GROWTH TO DATE. Blood Culture - Final Complete 01/15/18 1942 Blood NO GROWTH Blood Culture - Final Complete 01/15/18 1921 Blood NO GROWTH C.difficile Toxin B Gene (PCR) - Final Complete 01/22/18 0710 Stool Positive for C. difficile toxin B gene Last 24 Hours Test 01/23/18 06:50 White Blood Count 11.21 K/uL Red Blood Count 3.27 M/uL Hemoglobin 10.4 g/dL Hematocrit 30.6 % Mean Corpuscular Volume 93.6 fL Mean Corpuscular Hemoglobin 31.8 pg Mean Corpuscular Hemoglobin Concent 34.0 g/dl Platelet Count 605 K/uL Mean Platelet Volume 9.5 fL Neutrophils (%) (Auto) 75.4 % Lymphocytes (%) (Auto) 8.5 % Monocytes (%) (Auto) 13.1 % Eosinophils (%) (Auto) 2.0 % Basophils (%) (Auto) 0.2 % Neutrophils # (Auto) 8.46 K/uL Lymphocytes # (Auto) 0.95 K/uL Monocytes # (Auto) 1.47 K/uL Eosinophils # (Auto) 0.22 K/uL Basophils # (Auto) 0.02 K/uL RDW Standard Deviation 44.2 fL RDW Coefficient of Variation 12.9 % Immature Granulocyte % (Auto) 0.8 % Immature Granulocyte # (Auto) 0.09 K/uL Sodium Level 140 mmol/L Potassium Level 3.5 mmol/L Chloride Level 110 mmol/L Carbon Dioxide Level 25 mmol/L Anion Gap 5.0 mmol/L Blood Urea Nitrogen 6 mg/dl Creatinine 0.94 mg/dl Est Creatinine Clear Calc Drug Dose 117.2 ml/min Estimated GFR () 134.7 Estimated GFR (Non- 116.2 BUN/Creatinine Ratio 6.4 Random Glucose 93 mg/dl Calcium Level 8.2 mg/dl Total Bilirubin 0.7 mg/dl Aspartate Amino Transf (AST/SGOT) 27 U/L Alanine Aminotransferase (ALT/SGPT) 29 U/L Alkaline Phosphatase 81 U/L Total Protein 6.4 gm/dl Albumin 2.3 gm/dl Globulin 4.1 gm/dl Albumin/Globulin Ratio 0.6 Lipase 232 U/L Assessment and Plan (1) Acute pancreatitis Assessment & Plan: pt will remain on abx for now, likely 14 days total, po vanco to extend additional 7 days. follow cultures, negative to date. fever improving. no plans for surgery at this time Problem Qualifiers (1) Acute pancreatitis: Pancreatitis type: unspecified pancreatitis type Acute pancreatitis complication: unspecified Qualified Codes: K85.90 - Acute pancreatitis without necrosis or infection, unspecified
[2018-01-23] MEDS: PANTOprazole INJ 40 MG in SYRINGE 0 ML IV SCH (11:03)
--- NOTE | 2018-01-23 13:52 | Surgery Progress Note ---
Surgery Progress Note Date of Service Jan 23, 2018. Subjective + diet (tolerating clear liquids), No nausea, No vomiting Abdominal pain may be slightly decreased today Objective Vital Signs: Date Time Temp Pulse Resp B/P (MAP) Pulse Ox O2 Delivery O2 Flow Rate FiO2 01/23/18 12:00 Room Air 01/23/18 11:53 37.0 93 18 118/80 (93) 94 01/23/18 08:04 37.2 71 18 116/75 (89) 94 01/23/18 08:00 Room Air 01/23/18 04:00 Room Air 01/23/18 03:51 37.2 75 18 125/81 (96) 97 Room Air 01/23/18 00:00 Room Air 01/22/18 23:57 36.8 72 18 129/85 (100) 96 01/22/18 20:20 Room Air 01/22/18 19:53 37.7 81 16 149/94 (112) 97 Room Air 01/22/18 16:07 37.1 78 16 146/88 (107) 95 Room Air 01/22/18 16:00 Room Air Abdomen: normal bowel sounds, + distended (mild and unchanged), + tenderness ( upper abdomen unchanged) Laboratory Results: Results Past 24 Hours Test 01/23/18 06:50 Range/Units White Blood Count 11.21 4.8-10.8 K/uL Red Blood Count 3.27 4.7-6.1 M/uL Hemoglobin 10.4 14.0-18.0 g/dL Hematocrit 30.6 42-52 % Mean Corpuscular Volume 93.6 80-100 fL Mean Corpuscular Hemoglobin 31.8 25-34 pg Mean Corpuscular Hemoglobin Concent 34.0 32-36 g/dl Platelet Count 605 130-400 K/uL Mean Platelet Volume 9.5 7.4-10.4 fL Neutrophils (%) (Auto) 75.4 % Lymphocytes (%) (Auto) 8.5 % Monocytes (%) (Auto) 13.1 % Eosinophils (%) (Auto) 2.0 % Basophils (%) (Auto) 0.2 % Neutrophils # (Auto) 8.46 1.4-6.5 K/uL Lymphocytes # (Auto) 0.95 1.2-3.4 K/uL Monocytes # (Auto) 1.47 0.11-0.59 K/uL Eosinophils # (Auto) 0.22 0-0.5 K/uL Basophils # (Auto) 0.02 0-0.2 K/uL RDW Standard Deviation 44.2 36.4-46.3 fL RDW Coefficient of Variation 12.9 11.5-14.5 % Immature Granulocyte % (Auto) 0.8 % Immature Granulocyte # (Auto) 0.09 0.00-0.02 K/uL Sodium Level 140 136-145 mmol/L Potassium Level 3.5 3.5-5.1 mmol/L Chloride Level 110 98-107 mmol/L Carbon Dioxide Level 25 21-32 mmol/L Anion Gap 5.0 3-11 mmol/L Blood Urea Nitrogen 6 7-18 mg/dl Creatinine 0.94 0.60-1.40 mg/dl Est Creatinine Clear Calc Drug Dose 117.2 ml/min Estimated GFR () 134.7 Estimated GFR (Non- 116.2 BUN/Creatinine Ratio 6.4 10-20 Random Glucose 93 70-99 mg/dl Calcium Level 8.2 8.5-10.1 mg/dl Total Bilirubin 0.7 0.2-1 mg/dl Aspartate Amino Transf (AST/SGOT) 27 15-37 U/L Alanine Aminotransferase (ALT/SGPT) 29 12-78 U/L Alkaline Phosphatase 81 45-117 U/L Total Protein 6.4 6.4-8.2 gm/dl Albumin 2.3 3.4-5.0 gm/dl Globulin 4.1 2.5-4.0 gm/dl Albumin/Globulin Ratio 0.6 0.9-2 Lipase 232 73-393 U/L Assessment & Plan Pancreatitis Gallbladder sludge but doubt acute cholecystitis a this time Pancreas divisum No peritonitis, WBC down today No evidences of necrotizing pancreatitis or abscess at the present time
--- NOTE | 2018-01-23 16:19 | Gastroenterology Progress Note ---
Progress Note Date of Service: Jan 23, 2018 Subjective Pt evaluation today including: conversation w/ patient Review of Systems Abdomen: + pain Medications Current Inpatient Medications Medications (Trade) Dose Ordered Sig/Judith Route Start Time Stop Time Status Last Admin Dose Admin Ondansetron HCl (Zofran Inj) 4 mg Q6H PRN IV 01/14/18 00:45 02/13/18 00:44 01/22/18 19:57 4 MG Acetaminophen (Tylenol Tab) 650 mg Q4 PRN PO 01/16/18 12:00 02/15/18 00:00 01/22/18 19:57 650 MG Miscellaneous Information (Consult) 1 ea UD PRN N/A 01/16/18 20:30 02/15/18 20:29 Pantoprazole Sodium 40 mg/ Syringe 10 ml @ 5 mls/min DAILY@11 IV 01/17/18 11:00 02/16/18 10:59 01/23/18 11:03 5 MLS/MIN Lorazepam 0.5 mg/ Syringe 1 ml @ 1 mls/min HS PRN IV 01/17/18 00:45 02/16/18 00:44 Lorazepam (Ativan Inj) 0.5 mg HS PRN IV 01/17/18 00:45 02/16/18 00:44 01/17/18 23:11 1 MG Lorazepam 0.5 mg/ Syringe 1 ml @ 1 mls/min Q6H PRN IV 01/17/18 03:00 02/16/18 02:59 Lorazepam (Ativan Inj) 0.5 mg Q6H PRN IV 01/17/18 03:00 02/16/18 02:59 01/19/18 00:25 0.5 MG Docusate Sodium (coLACE CAP) 100 mg BID PO 01/17/18 21:00 02/16/18 20:59 01/23/18 08:18 100 MG Simethicone (Mylicon Chew Tab) 80 mg Q6H PRN PO 01/17/18 18:15 02/16/18 18:14 01/17/18 18:33 80 MG Enoxaparin Sodium (Lovenox Inj) 40 mg QAM SQ 01/18/18 09:00 02/17/18 08:59 01/23/18 08:18 40 MG Oxycodone HCl (Roxicodone Immediate Rel Tab) 5 mg Q4 PRN PO 01/18/18 16:30 02/01/18 16:29 01/23/18 15:23 5 MG Vancomycin HCl 1250 mg/Sodium Chloride 275 ml @ 125 mls/hr Q6H IV 01/19/18 20:00 01/26/18 19:59 01/23/18 16:08 125 MLS/HR Imipenem/ Cilastatin Sodium 500 mg/Dextrose 110 ml @ 100 mls/hr Q6H IV 01/20/18 16:00 01/30/18 15:59 01/23/18 16:08 100 MLS/HR Morphine Sulfate (MoRPHine SULFATE INJ) 2 mg Q2H PRN IV 01/21/18 10:15 02/04/18 10:14 01/21/18 23:19 2 MG Ioversol (Optiray 320) 125 ml UD PRN IV 01/21/18 10:45 01/25/18 10:44 Levalbuterol (Xopenex 0.63 Mg/ 3 Ml Neb) 0.63 mg Q4 PRN INH 01/22/18 10:30 02/21/18 10:29 Ioversol (Optiray 320) 100 ml UD PRN IV 01/22/18 10:45 01/26/18 10:44 Vancomycin HCl (Vancomycin Oral Soln) 125 mg Q6H PO 01/22/18 15:00 02/01/18 14:59 01/23/18 15:23 125 MG Raspberry (Raspberry Syrup 5ml Cup) 5 ml Q6H PO 01/22/18 15:00 02/05/18 14:59 01/23/18 15:23 5 ML Objective Vital Signs Date Time Temp Pulse Resp B/P (MAP) Pulse Ox O2 Delivery O2 Flow Rate FiO2 01/23/18 16:05 37.4 74 18 135/82 (99) 94 Room Air 01/23/18 12:00 Room Air 01/23/18 11:53 37.0 93 18 118/80 (93) 94 01/23/18 08:04 37.2 71 18 116/75 (89) 94 01/23/18 08:00 Room Air 01/23/18 04:00 Room Air 01/23/18 03:51 37.2 75 18 125/81 (96) 97 Room Air 01/23/18 00:00 Room Air 01/22/18 23:57 36.8 72 18 129/85 (100) 96 01/22/18 20:20 Room Air 01/22/18 19:53 37.7 81 16 149/94 (112) 97 Room Air Laboratory Results Last 24 Hours Test 01/23/18 06:50 White Blood Count 11.21 K/uL Red Blood Count 3.27 M/uL Hemoglobin 10.4 g/dL Hematocrit 30.6 % Mean Corpuscular Volume 93.6 fL Mean Corpuscular Hemoglobin 31.8 pg Mean Corpuscular Hemoglobin Concent 34.0 g/dl Platelet Count 605 K/uL Mean Platelet Volume 9.5 fL Neutrophils (%) (Auto) 75.4 % Lymphocytes (%) (Auto) 8.5 % Monocytes (%) (Auto) 13.1 % Eosinophils (%) (Auto) 2.0 % Basophils (%) (Auto) 0.2 % Neutrophils # (Auto) 8.46 K/uL Lymphocytes # (Auto) 0.95 K/uL Monocytes # (Auto) 1.47 K/uL Eosinophils # (Auto) 0.22 K/uL Basophils # (Auto) 0.02 K/uL RDW Standard Deviation 44.2 fL RDW Coefficient of Variation 12.9 % Immature Granulocyte % (Auto) 0.8 % Immature Granulocyte # (Auto) 0.09 K/uL Sodium Level 140 mmol/L Potassium Level 3.5 mmol/L Chloride Level 110 mmol/L Carbon Dioxide Level 25 mmol/L Anion Gap 5.0 mmol/L Blood Urea Nitrogen 6 mg/dl Creatinine 0.94 mg/dl Est Creatinine Clear Calc Drug Dose 117.2 ml/min Estimated GFR () 134.7 Estimated GFR (Non- 116.2 BUN/Creatinine Ratio 6.4 Random Glucose 93 mg/dl Calcium Level 8.2 mg/dl Total Bilirubin 0.7 mg/dl Aspartate Amino Transf (AST/SGOT) 27 U/L Alanine Aminotransferase (ALT/SGPT) 29 U/L Alkaline Phosphatase 81 U/L Total Protein 6.4 gm/dl Albumin 2.3 gm/dl Globulin 4.1 gm/dl Albumin/Globulin Ratio 0.6 Lipase 232 U/L Assessment and Plan Pancreatitis with pseudocyst. Tolerating po liquids today. Will hold off on parenteral alimentation for now. Continue vanco for C diff
[2018-01-24] VITALS (8 sets, daily range): BP systolic 85–136; BP diastolic 56–85; PULSE 67–141; TEMP 37.1–37.5; O2SAT 95–99
[2018-01-24] MEDS: VANCOMYCIN HCL 125 MG/2.5ML SOLN PO SCH ×4 (02:53→21:08)
[2018-01-24] MEDS: RASPBERRY SYRUP 5 ML UDP PO SCH ×4 (02:54→21:08)
[2018-01-24] MEDS: IMIPENEM/CILASTATIN IV 500 MG in DEXTROSE 5% 100ML 100 ML IV SCH ×3 (03:34→19:12)
[2018-01-24] MEDS: VANCOMYCIN IV 1,250 MG in SODIUM CHLORIDE 0.9% 250ML 250 ML IV SCH ×3 (04:41→23:58)
[2018-01-24 06:26] LABS: BASO % 0.2 %; BASO ABS # 0.02 K/uL (0-0.2); EOS % 2.3 %; EOS ABS # 0.23 K/uL (0-0.5); HEMATOCRIT 32.7 % (42-52); HEMOGLOBIN 10.8 g/dL (14.0-18.0); LYMPH % 11.1 %; LYMPH ABS # 1.09 K/uL (1.2-3.4); MEAN CELL VOLUME 92.9 fL (80-100); MEAN CORPUSCULAR HEMOGLOBIN 30.7 pg (25-34); MEAN PLATELET VOLUME 9.3 fL (7.4-10.4); MONO % 12.7 %; MONO ABS # 1.25 K/uL (0.11-0.59); NEUT % 72.7 %; NEUT ABS # 7.14 K/uL (1.4-6.5); PLATELET COUNT 691 K/uL (130-400); RED CELL DISTRIBUTION WIDTH CV 12.8 % (11.5-14.5); RED CELL DISTRIBUTION WIDTH SD 43.6 fL (36.4-46.3); WHITE BLOOD COUNT 9.83 K/uL (4.8-10.8)
[2018-01-24 07:01] LABS: ALBUMIN 2.6 gm/dl (3.4-5.0); CALCIUM 8.7 mg/dl (8.5-10.1); CREATININE 0.95 mg/dl (0.60-1.40); POTASSIUM 3.4 mmol/L (3.5-5.1)
[2018-01-24 07:02] LABS: TOTAL PROTEIN 6.9 gm/dl (6.4-8.2)
[2018-01-24] MEDS: DOCUSATE SODIUM 100 MG CAP PO SCH ×2 (09:00→21:07)
[2018-01-24] MEDS: PANTOprazole INJ 40 MG in SYRINGE 0 ML IV SCH (09:04)
[2018-01-24] MEDS: ENOXAPARIN 40 MG/0.4 ML SYR SQ SCH (09:06)
[2018-01-24] MEDS ORDERED: VANCOMYCIN TROUGH ONE (09:30)
[2018-01-24] MEDS ORDERED: MoRPHine SULFATE 2 MG/ML CARP IV PRN (10:15)
--- NOTE | 2018-01-24 11:29 | PROGRESS NOTE ---
DATE: 01/24/2018 The patient remains afebrile with normal vital signs. His white count is normal today at 9.83. He is tolerating liquids, continues to complain of some left-sided abdominal pain where his pseudocyst is most prominent. Abdomen remains tender in that area on physical exam. IMPRESSION: The patient has pancreatitis with pancreas divisum and evolving pseudocyst. He is also being treated for Clostridium difficile on vancomycin. He is not having any diarrhea at this time. PLAN: I am drawing an VANCE and an IgG to check for a possible autoimmune pancreatitis as the etiology is still unclear.
--- NOTE | 2018-01-24 12:52 | Surgery Progress Note ---
Surgery Progress Note Date of Service Jan 24, 2018. Subjective 22-year-old male admitted with pancreatitis now with pseudocysts, also with C. difficile colitis, and most recent finding showed some sludge in the gallbladder with possible cholecystitis. Overall he is feeling better this morning, his abdomen is mildly distended but pain is improved. His bowel movements have slowed down. Objective Vital Signs: Date Time Temp Pulse Resp B/P (MAP) Pulse Ox O2 Delivery O2 Flow Rate FiO2 01/24/18 08:00 Room Air 01/24/18 07:51 37.3 74 20 136/85 (102) 95 Room Air 01/24/18 04:00 99 Room Air 2.0 01/24/18 03:40 37.4 67 18 129/79 (96) 95 01/23/18 23:59 99 Room Air 2.0 01/23/18 23:38 37.7 73 16 137/86 (103) 99 01/23/18 20:28 37.0 70 20 125/80 (95) 94 Room Air 01/23/18 20:00 94 Room Air 01/23/18 16:05 37.4 74 18 135/82 (99) 94 Room Air 01/23/18 16:00 100 Room Air General Appearance: WD/WN, no apparent distress Abdomen: normal bowel sounds, non tender, soft, no organomegaly, no pulsatile mass, + distended Laboratory Results: Results Past 24 Hours Test 01/24/18 05:52 01/24/18 09:18 01/24/18 10:39 Range/Units White Blood Count 9.83 4.8-10.8 K/uL Red Blood Count 3.52 4.7-6.1 M/uL Hemoglobin 10.8 14.0-18.0 g/dL Hematocrit 32.7 42-52 % Mean Corpuscular Volume 92.9 80-100 fL Mean Corpuscular Hemoglobin 30.7 25-34 pg Mean Corpuscular Hemoglobin Concent 33.0 32-36 g/dl Platelet Count 691 130-400 K/uL Mean Platelet Volume 9.3 7.4-10.4 fL Neutrophils (%) (Auto) 72.7 % Lymphocytes (%) (Auto) 11.1 % Monocytes (%) (Auto) 12.7 % Eosinophils (%) (Auto) 2.3 % Basophils (%) (Auto) 0.2 % Neutrophils # (Auto) 7.14 1.4-6.5 K/uL Lymphocytes # (Auto) 1.09 1.2-3.4 K/uL Monocytes # (Auto) 1.25 0.11-0.59 K/uL Eosinophils # (Auto) 0.23 0-0.5 K/uL Basophils # (Auto) 0.02 0-0.2 K/uL RDW Standard Deviation 43.6 36.4-46.3 fL RDW Coefficient of Variation 12.8 11.5-14.5 % Immature Granulocyte % (Auto) 1.0 % Immature Granulocyte # (Auto) 0.10 0.00-0.02 K/uL Sodium Level 140 136-145 mmol/L Potassium Level 3.4 3.5-5.1 mmol/L Chloride Level 108 98-107 mmol/L Carbon Dioxide Level 24 21-32 mmol/L Anion Gap 8.0 3-11 mmol/L Blood Urea Nitrogen 5 7-18 mg/dl Creatinine 0.95 0.60-1.40 mg/dl Est Creatinine Clear Calc Drug Dose 116.0 ml/min Estimated GFR () 133.0 Estimated GFR (Non- 114.8 BUN/Creatinine Ratio 4.9 10-20 Random Glucose 93 70-99 mg/dl Calcium Level 8.7 8.5-10.1 mg/dl Total Bilirubin 0.5 0.2-1 mg/dl Aspartate Amino Transf (AST/SGOT) 31 15-37 U/L Alanine Aminotransferase (ALT/SGPT) 28 12-78 U/L Alkaline Phosphatase 85 45-117 U/L Total Protein 6.9 6.4-8.2 gm/dl Albumin 2.6 3.4-5.0 gm/dl Globulin 4.3 2.5-4.0 gm/dl Albumin/Globulin Ratio 0.6 0.9-2 Lipase 276 73-393 U/L Vancomycin Level Trough 28.8 SEE COMMENT mcg/ml Assessment & Plan 22-year-old male with pancreatitis now with pseudocysts, C. difficile colitis, and gallbladder sludge with possible cholecystitis. Findings of his gallbladder may represent secondary inflammation or fluid. In either case this would not be a good time to attempt laparoscopic cholecystectomy given the degree and duration of his pancreatitis. Pseudocyst do not appear infected, and recommendation would be to allow them to mature prior to any attempted drainage procedure. No surgical indication at this time Surgery will follow Call with questions or concerns
[2018-01-24] MEDS ORDERED: VANCOMYCIN IV 1,250 MG in SODIUM CHLORIDE 0.9% 250ML 250 ML IV SCH (14:00)
--- NOTE | 2018-01-24 15:02 | Pharmacy Progress Note ---
Pharmacy Antibiotic Prog Note Date of Service Jan 24, 2018. Subjective The patient is currently receiving vancomycin 1250 mg iv q 6 hrs The patient is currently on day #8 of IV therapy. Objective Height (Feet): 5 Height (Inches): 7.00 Weight (Kilograms): 75.000 Levels: Item Value Date Time Random Vancomycin Level 17.4 mcg/ml 01/24/18 1352 Vancomycin Level Trough 28.8 mcg/ml 01/24/18 0918 Lab Results (24hrs): Test 01/24/18 05:52 01/24/18 09:18 01/24/18 13:52 White Blood Count 9.83 K/uL (4.8-10.8) Red Blood Count 3.52 M/uL (4.7-6.1) Hemoglobin 10.8 g/dL (14.0-18.0) Hematocrit 32.7 % (42-52) Mean Corpuscular Volume 92.9 fL (80-100) Mean Corpuscular Hemoglobin 30.7 pg (25-34) Mean Corpuscular Hemoglobin Concent 33.0 g/dl (32-36) Platelet Count 691 K/uL (130-400) Mean Platelet Volume 9.3 fL (7.4-10.4) Neutrophils (%) (Auto) 72.7 % Lymphocytes (%) (Auto) 11.1 % Monocytes (%) (Auto) 12.7 % Eosinophils (%) (Auto) 2.3 % Basophils (%) (Auto) 0.2 % Neutrophils # (Auto) 7.14 K/uL (1.4-6.5) Lymphocytes # (Auto) 1.09 K/uL (1.2-3.4) Monocytes # (Auto) 1.25 K/uL (0.11-0.59) Eosinophils # (Auto) 0.23 K/uL (0-0.5) Basophils # (Auto) 0.02 K/uL (0-0.2) RDW Standard Deviation 43.6 fL (36.4-46.3) RDW Coefficient of Variation 12.8 % (11.5-14.5) Immature Granulocyte % (Auto) 1.0 % Immature Granulocyte # (Auto) 0.10 K/uL (0.00-0.02) Sodium Level 140 mmol/L (136-145) Potassium Level 3.4 mmol/L (3.5-5.1) Chloride Level 108 mmol/L (98-107) Carbon Dioxide Level 24 mmol/L (21-32) Anion Gap 8.0 mmol/L (3-11) Blood Urea Nitrogen 5 mg/dl (7-18) Creatinine 0.95 mg/dl (0.60-1.40) Est Creatinine Clear Calc Drug Dose 116.0 ml/min Estimated GFR () 133.0 Estimated GFR (Non- 114.8 BUN/Creatinine Ratio 4.9 (10-20) Random Glucose 93 mg/dl (70-99) Calcium Level 8.7 mg/dl (8.5-10.1) Total Bilirubin 0.5 mg/dl (0.2-1) Aspartate Amino Transf (AST/SGOT) 31 U/L (15-37) Alanine Aminotransferase (ALT/SGPT) 28 U/L (12-78) Alkaline Phosphatase 85 U/L (45-117) Total Protein 6.9 gm/dl (6.4-8.2) Albumin 2.6 gm/dl (3.4-5.0) Globulin 4.3 gm/dl (2.5-4.0) Albumin/Globulin Ratio 0.6 (0.9-2) Lipase 276 U/L (73-393) Vancomycin Level Trough 28.8 mcg/ml (SEE COMMENT) Random Vancomycin Level 17.4 mcg/ml Assessment & Plan Patient receiving vancomycin + primaxin IV for treatment of pancreatitis. ID is following the patient. Vancomycin: * Trough level this am came back supratherapeutic at ~28 mcg/ml (goal 15-20 mcg/ ml), however previous dose given ~1 hr late and level drawn early. Therefore, actual level probably lower then reported * Ordered a random level for this afternoon in order to calculate kinetics and have a better indicator of half life * Random level this afternoon therapeutic at ~17 mcg/ml -based upon 2 levels collected today estimated t1/2~7 hrs, ke~0.10 hr-1 * Will resume vancomycin and adjust frequency to 1250 mg iv q 8 hrs to achieve an estimated trough 15-20 mcg/ml * Will order a trough prior to the 1500 dose on 01/25 to ensure therapeutic Pharmacy will continue to follow and will adjust dose/frequency as necessary. Thank you
--- NOTE | 2018-01-24 15:05 | Family Medicine Progress Note ---
Progress Note Date of Service Jan 24, 2018. Subjective Pt resting comfortably in bed this morning. Per nursing, no acute overnight events, and abdominal pain has improved. Has not needed IV morphine for 48 hours. Pt reports loose stools 2 per day. Otherwise is tolerating clear liquid diet. Denies chest pain, difficulty breathing, lightheadedness. Pain in abdomen as above. ROS See HPI for pertinent positives and negatives. Objective Physical Exam Notes: GENERAL: Awake, alert, well-appearing, in no distress. Sweating. HENT: Normocephalic, atraumatic. EYES: Normal conjunctiva. Sclera non-icteric. NECK: Supple. FROM. No JVD. RESPIRATORY: Clear to auscultation. CARDIAC: Regular rate, normal rhythm. Extremities warm and well perfused. Pulses equal. ABDOMEN: Soft, non-distended. Mild tenderness to palpation. No rebound or guarding. No masses. LOWER EXTREMITIES: Calves are equal size bilaterally and non-tender. No edema. No discoloration. NEURO: No motor deficits noted. SKIN: No rash or jaundice noted. Assessment and Plan 22M here for acute pancreatitis with pseudocyst formation, pancreas divisum, gallbladder sludge, who developed clostridium difficile during admission Assessment 1. acute pancreatitis with pseudocyst formation, pancreas divisum 2. clostridium difficile colitis 3. Gallbladder sludge 4. pulmonary effusion on chest CT Plan 1. Continue Imipenem/Cilastatin 500mg q6 Day 5, IV Vancomycin Day 8 2. Supportive care - zofran (has not needed since 01/22), morphine IV (has not needed since 01/21), pain is controlled with Oxy IR. 3. GI is investigating etiology - pancreas divisum present on MRCP. VANCE and IgG pending for possible autoimmune cause. 4. Continue PO Vanc 125mg q6h for c. diff. 5. Per surgery, lap choly deferred at this time. Also, rec for cysts to mature before attempting drainage at this point. Appreciate recs. 6. Pt is oxygenating adequately on room air and not requiring prn xopenex at this time. VTE ppx: lovenox 40 qam. Dispo: home on discharge. Tele. Current Inpatient Medications Medications (Trade) Dose Ordered Sig/Judith Route Start Time Stop Time Status Last Admin Dose Admin Ondansetron HCl (Zofran Inj) 4 mg Q6H PRN IV 01/14/18 00:45 02/13/18 00:44 01/22/18 19:57 4 MG Acetaminophen (Tylenol Tab) 650 mg Q4 PRN PO 01/16/18 12:00 02/15/18 00:00 01/22/18 19:57 650 MG Miscellaneous Information (Consult) 1 ea UD PRN N/A 01/16/18 20:30 02/15/18 20:29 Pantoprazole Sodium 40 mg/ Syringe 10 ml @ 5 mls/min DAILY@11 IV 01/17/18 11:00 02/16/18 10:59 01/24/18 09:04 5 MLS/MIN Lorazepam 0.5 mg/ Syringe 1 ml @ 1 mls/min HS PRN IV 01/17/18 00:45 02/16/18 00:44 Future Hold Lorazepam (Ativan Inj) 0.5 mg HS PRN IV 01/17/18 00:45 02/16/18 00:44 Future Hold 01/17/18 23:11 1 MG Lorazepam 0.5 mg/ Syringe 1 ml @ 1 mls/min Q6H PRN IV 01/17/18 03:00 02/16/18 02:59 Future Hold Lorazepam (Ativan Inj) 0.5 mg Q6H PRN IV 01/17/18 03:00 02/16/18 02:59 Future Hold 01/19/18 00:25 0.5 MG Docusate Sodium (coLACE CAP) 100 mg BID PO 01/17/18 21:00 02/16/18 20:59 01/23/18 21:07 100 MG Simethicone (Mylicon Chew Tab) 80 mg Q6H PRN PO 01/17/18 18:15 02/16/18 18:14 01/17/18 18:33 80 MG Enoxaparin Sodium (Lovenox Inj) 40 mg QAM SQ 01/18/18 09:00 02/17/18 08:59 01/24/18 09:06 40 MG Oxycodone HCl (Roxicodone Immediate Rel Tab) 5 mg Q4 PRN PO 01/18/18 16:30 02/01/18 16:29 01/24/18 17:22 5 MG Imipenem/ Cilastatin Sodium 500 mg/Dextrose 110 ml @ 100 mls/hr Q6H IV 01/20/18 16:00 01/30/18 15:59 01/24/18 09:05 100 MLS/HR Ioversol (Optiray 320) 125 ml UD PRN IV 01/21/18 10:45 01/25/18 10:44 Levalbuterol (Xopenex 0.63 Mg/ 3 Ml Neb) 0.63 mg Q4 PRN INH 01/22/18 10:30 02/21/18 10:29 Ioversol (Optiray 320) 100 ml UD PRN IV 01/22/18 10:45 01/26/18 10:44 Vancomycin HCl (Vancomycin Oral Soln) 125 mg Q6H PO 01/22/18 15:00 02/01/18 14:59 01/24/18 15:54 125 MG Raspberry (Raspberry Syrup 5ml Cup) 5 ml Q6H PO 01/22/18 15:00 02/05/18 14:59 01/24/18 15:54 5 ML Morphine Sulfate (MoRPHine SULFATE INJ) 2 mg Q6HWA PRN IV 01/24/18 10:15 02/04/18 10:14 Vancomycin HCl 1250 mg/Sodium Chloride 275 ml @ 125 mls/hr Q8H IV 01/24/18 15:00 01/30/18 14:59 01/24/18 15:52 125 MLS/HR Date Time Temp Pulse Resp B/P (MAP) Pulse Ox O2 Delivery O2 Flow Rate FiO2 01/24/18 16:00 Room Air 01/24/18 15:57 37.4 85 16 127/81 (96) 96 Room Air 01/24/18 12:28 37.1 72 18 117/77 (90) 96 Room Air 01/24/18 12:00 Room Air 01/24/18 08:00 Room Air 01/24/18 07:51 37.3 74 20 136/85 (102) 95 Room Air 01/24/18 04:00 99 Room Air 2.0 01/24/18 03:40 37.4 67 18 129/79 (96) 95 01/23/18 23:59 99 Room Air 2.0 01/23/18 23:38 37.7 73 16 137/86 (103) 99 01/23/18 20:28 37.0 70 20 125/80 (95) 94 Room Air 01/23/18 20:00 94 Room Air 01/24/18 05:52 Red Blood Count 3.52, Mean Corpuscular Volume 92.9, Mean Corpuscular Hemoglobin 30.7, Mean Corpuscular Hemoglobin Concent 33.0, Mean Platelet Volume 9.3, Neutrophils (%) (Auto) 72.7, Lymphocytes (%) (Auto) 11.1, Monocytes (%) (Auto) 12.7, Eosinophils (%) (Auto) 2.3, Basophils (%) (Auto) 0.2, Neutrophils # (Auto ) 7.14, Lymphocytes # (Auto) 1.09, Monocytes # (Auto) 1.25, Eosinophils # (Auto ) 0.23, Basophils # (Auto) 0.02 01/24/18 05:52 Test 01/24/18 05:52 01/24/18 09:18 01/24/18 13:52 White Blood Count 9.83 K/uL (4.8-10.8) Red Blood Count 3.52 M/uL (4.7-6.1) Hemoglobin 10.8 g/dL (14.0-18.0) Hematocrit 32.7 % (42-52) Mean Corpuscular Volume 92.9 fL (80-100) Mean Corpuscular Hemoglobin 30.7 pg (25-34) Mean Corpuscular Hemoglobin Concent 33.0 g/dl (32-36) Platelet Count 691 K/uL (130-400) Mean Platelet Volume 9.3 fL (7.4-10.4) Neutrophils (%) (Auto) 72.7 % Lymphocytes (%) (Auto) 11.1 % Monocytes (%) (Auto) 12.7 % Eosinophils (%) (Auto) 2.3 % Basophils (%) (Auto) 0.2 % Neutrophils # (Auto) 7.14 K/uL (1.4-6.5) Lymphocytes # (Auto) 1.09 K/uL (1.2-3.4) Monocytes # (Auto) 1.25 K/uL (0.11-0.59) Eosinophils # (Auto) 0.23 K/uL (0-0.5) Basophils # (Auto) 0.02 K/uL (0-0.2) RDW Standard Deviation 43.6 fL (36.4-46.3) RDW Coefficient of Variation 12.8 % (11.5-14.5) Immature Granulocyte % (Auto) 1.0 % Immature Granulocyte # (Auto) 0.10 K/uL (0.00-0.02) Anion Gap 8.0 mmol/L (3-11) Est Creatinine Clear Calc Drug Dose 116.0 ml/min Estimated GFR () 133.0 Estimated GFR (Non- 114.8 BUN/Creatinine Ratio 4.9 (10-20) Calcium Level 8.7 mg/dl (8.5-10.1) Total Bilirubin 0.5 mg/dl (0.2-1) Aspartate Amino Transf (AST/SGOT) 31 U/L (15-37) Alanine Aminotransferase (ALT/SGPT) 28 U/L (12-78) Alkaline Phosphatase 85 U/L (45-117) Total Protein 6.9 gm/dl (6.4-8.2) Albumin 2.6 gm/dl (3.4-5.0) Globulin 4.3 gm/dl (2.5-4.0) Albumin/Globulin Ratio 0.6 (0.9-2) Lipase 276 U/L (73-393) Vancomycin Level Trough 28.8 mcg/ml (SEE COMMENT) Random Vancomycin Level 17.4 mcg/ml Continued [facility] stay due to: multiple IV medications needed Discharge planning: home Resident Tracking Resident Involvement: Resident Care Provided Care Provided: Adult Hospital Medicine Assessment/Plan Resident Physician Supervision Note: I was present with Dr. Spence during the history and exam. I discussed the case with the resident and agree with the findings and plan as documented in the note. Any exceptions or clarifications are listed here: continued incremental improvement in decreased appetite and abdominal discomfort, tolerating clears better than previous day. Continue light hydration, encourage intake and advance diet per GI recommendation. Discussed w/ patients step-father in room - would like any procedural intervention done at [facility] in [place].
[2018-01-24] MEDS: OXYCODONE HCL IR 5 MG TAB (IMMEDIATE RELEASE) PO PRN (17:22)
[2018-01-25] MEDS: IMIPENEM/CILASTATIN IV 500 MG in DEXTROSE 5% 100ML 100 ML IV SCH ×4 (02:22→20:14)
[2018-01-25] MEDS: RASPBERRY SYRUP 5 ML UDP PO SCH ×4 (02:51→20:15)
[2018-01-25] MEDS: VANCOMYCIN HCL 125 MG/2.5ML SOLN PO SCH ×4 (02:51→20:15)
[2018-01-25 04:23] VITALS: BP 115/74; PULSE 93; TEMP 37.1; O2SAT 97
[2018-01-25] MEDS: VANCOMYCIN IV 1,250 MG in SODIUM CHLORIDE 0.9% 250ML 250 ML IV SCH ×3 (06:29→23:43)
[2018-01-25 06:35] LABS: CREATININE 0.91 mg/dl (0.60-1.40)
--- NOTE | 2018-01-25 07:03 | Surgery Progress Note ---
Surgery Progress Note Date of Service Jan 25, 2018. Subjective + feeling well, + flatus, + pain controlled, + diet (Tolerating clears), No complaints, No bowel movement, No nausea, No vomiting Objective Vital Signs: Date Time Temp Pulse Resp B/P (MAP) Pulse Ox O2 Delivery O2 Flow Rate FiO2 01/25/18 04:23 37.1 93 18 115/74 (88) 97 2.0 01/25/18 04:00 Room Air 01/25/18 00:00 Room Air 01/24/18 23:31 37.5 75 18 112/75 (87) 96 01/24/18 20:00 Room Air 01/24/18 19:55 37.3 78 16 116/78 (91) 96 Room Air 01/24/18 16:00 Room Air 01/24/18 15:57 37.4 85 16 127/81 (96) 96 Room Air 01/24/18 12:28 37.1 72 18 117/77 (90) 96 Room Air 01/24/18 12:00 Room Air 01/24/18 08:00 Room Air 01/24/18 07:51 37.3 74 20 136/85 (102) 95 Room Air General Appearance: WD/WN, no apparent distress Head: normocephalic, atraumatic Respiratory/Chest: no respiratory distress, no accessory muscle use Abdomen: non tender, non distended, soft, no organomegaly Laboratory Results: Results Past 24 Hours Test 01/24/18 09:18 01/24/18 13:52 01/25/18 05:47 Range/Units Vancomycin Level Trough 28.8 SEE COMMENT mcg/ml Random Vancomycin Level 17.4 mcg/ml Creatinine 0.91 0.60-1.40 mg/dl Est Creatinine Clear Calc Drug Dose 121.1 ml/min Estimated GFR () 140.1 Estimated GFR (Non- 120.9 Assessment & Plan 22-year-old male with pancreatitis now with pseudocysts, C. difficile colitis, and gallbladder sludge with possible cholecystitis. Covering for [facility] general surgery group. Minimal abdominal tenderness, Abdomen soft, non-distended. Tolerating clears , No N/V. + flatus, +BM yesterday. Seems to be improving. Still no indication for surgical intervention at this time. Will continue to follow. Please contact with questions or concerns.
[2018-01-25 07:42] VITALS: BP 107/73; PULSE 81; TEMP 37.1; O2SAT 94
[2018-01-25] MEDS: DOCUSATE SODIUM 100 MG CAP PO SCH ×2 (07:42→20:14)
[2018-01-25] MEDS: ENOXAPARIN 40 MG/0.4 ML SYR SQ SCH (07:43)
--- NOTE | 2018-01-25 10:39 | Family Medicine Progress Note ---
Progress Note Date of Service Jan 25, 2018. Subjective 1 loose BM overnight, tolerating diet. No complaints at this time. Resting comfortably in bed this morning. Per nursing, no acute overnight events, and abdominal pain has improved. Has not needed IV morphine for 72 hours. Pt reports loose stools 2 per day. Otherwise is tolerating clear liquid diet. Denies chest pain, difficulty breathing, lightheadedness. Pain in abdomen as above. ROS See HPI for pertinent positives and negatives. Objective Physical Exam Notes: GENERAL: Awake, alert, well-appearing, in no distress. HENT: Normocephalic, atraumatic. EYES: Normal conjunctiva. Sclera non-icteric. NECK: Supple. FROM. No JVD. RESPIRATORY: Clear to auscultation. CARDIAC: Regular rate, normal rhythm. Extremities warm and well perfused. Pulses equal. ABDOMEN: Soft, non-distended. No tenderness to palpation. No rebound or guarding. No masses. LOWER EXTREMITIES: Calves are equal size bilaterally and non-tender. No edema. No discoloration. NEURO: No motor deficits noted. SKIN: No rash or jaundice noted. Assessment and Plan 22M here for acute pancreatitis with pseudocyst formation, pancreas divisum, gallbladder sludge, who developed clostridium difficile during admission Assessment 1. acute pancreatitis with pseudocyst formation, pancreas divisum 2. clostridium difficile colitis 3. Gallbladder sludge 4. pulmonary effusion on chest CT Plan 1. Continue Imipenem/Cilastatin 500mg q6 Day 6, IV Vancomycin Day 9 2. Supportive care - zofran (has not needed since 01/22), morphine IV (has not needed since 01/21), pain is controlled with Oxy IR. 3. GI is investigating etiology - pancreas divisum present on MRCP. VANCE and IgG pending for possible autoimmune cause. 4. Continue PO Vanc 125mg q6h for c. diff. 5. Per surgery, lap choly deferred at this time. Also, rec for cysts to mature before attempting drainage at this point. Appreciate recs. 6. Pt is oxygenating adequately on room air and not requiring prn xopenex at this time. 7. Advance diet to full liquid VTE ppx: lovenox 40 qam. Dispo: home on discharge. Transfer to med/surg today Current Inpatient Medications Medications (Trade) Dose Ordered Sig/Judith Route Start Time Stop Time Status Last Admin Dose Admin Ondansetron HCl (Zofran Inj) 4 mg Q6H PRN IV 01/14/18 00:45 02/13/18 00:44 01/22/18 19:57 4 MG Acetaminophen (Tylenol Tab) 650 mg Q4 PRN PO 01/16/18 12:00 02/15/18 00:00 01/22/18 19:57 650 MG Miscellaneous Information (Consult) 1 ea UD PRN N/A 01/16/18 20:30 02/15/18 20:29 Pantoprazole Sodium 40 mg/ Syringe 10 ml @ 5 mls/min DAILY@11 IV 01/17/18 11:00 02/16/18 10:59 01/25/18 11:04 5 MLS/MIN Docusate Sodium (coLACE CAP) 100 mg BID PO 01/17/18 21:00 02/16/18 20:59 01/25/18 07:42 100 MG Simethicone (Mylicon Chew Tab) 80 mg Q6H PRN PO 01/17/18 18:15 02/16/18 18:14 01/17/18 18:33 80 MG Enoxaparin Sodium (Lovenox Inj) 40 mg QAM SQ 01/18/18 09:00 02/17/18 08:59 01/25/18 07:43 40 MG Oxycodone HCl (Roxicodone Immediate Rel Tab) 5 mg Q4 PRN PO 01/18/18 16:30 02/01/18 16:29 01/25/18 12:05 5 MG Imipenem/ Cilastatin Sodium 500 mg/Dextrose 110 ml @ 100 mls/hr Q6H IV 01/20/18 16:00 01/30/18 15:59 01/25/18 13:06 100 MLS/HR Levalbuterol (Xopenex 0.63 Mg/ 3 Ml Neb) 0.63 mg Q4 PRN INH 01/22/18 10:30 02/21/18 10:29 Ioversol (Optiray 320) 100 ml UD PRN IV 01/22/18 10:45 01/26/18 10:44 Vancomycin HCl (Vancomycin Oral Soln) 125 mg Q6H PO 01/22/18 15:00 02/01/18 14:59 01/25/18 07:46 125 MG Raspberry (Raspberry Syrup 5ml Cup) 5 ml Q6H PO 01/22/18 15:00 02/05/18 14:59 01/25/18 07:43 5 ML Morphine Sulfate (MoRPHine SULFATE INJ) 2 mg Q6HWA PRN IV 01/24/18 10:15 02/04/18 10:14 Vancomycin HCl 1250 mg/Sodium Chloride 275 ml @ 125 mls/hr Q8H IV 01/24/18 15:00 01/30/18 14:59 01/25/18 06:29 125 MLS/HR Date Time Temp Pulse Resp B/P (MAP) Pulse Ox O2 Delivery O2 Flow Rate FiO2 01/25/18 14:17 37.1 81 19 94 01/25/18 12:00 Room Air 01/25/18 08:00 Room Air 01/25/18 07:42 37.1 81 19 107/73 (84) 94 Room Air 01/25/18 04:23 37.1 93 18 115/74 (88) 97 2.0 01/25/18 04:00 Room Air 01/25/18 00:00 Room Air 01/24/18 23:31 37.5 75 18 112/75 (87) 96 01/24/18 20:00 Room Air 01/24/18 19:55 37.3 78 16 116/78 (91) 96 Room Air 01/24/18 16:00 Room Air 01/24/18 15:57 37.4 85 16 127/81 (96) 96 Room Air Last Resulted 01/24/18 05:52 Red Blood Count 3.52, Mean Corpuscular Volume 92.9, Mean Corpuscular Hemoglobin 30.7, Mean Corpuscular Hemoglobin Concent 33.0, Mean Platelet Volume 9.3, Neutrophils (%) (Auto) 72.7, Lymphocytes (%) (Auto) 11.1, Monocytes (%) (Auto) 12.7, Eosinophils (%) (Auto) 2.3, Basophils (%) (Auto) 0.2, Neutrophils # (Auto ) 7.14, Lymphocytes # (Auto) 1.09, Monocytes # (Auto) 1.25, Eosinophils # (Auto ) 0.23, Basophils # (Auto) 0.02 Last Resulted 01/24/18 05:52 01/25/18 05:47 Continued [facility] stay due to: multiple IV medications needed Discharge planning: home Resident Tracking Resident Involvement: Resident Care Provided Care Provided: Adult Hospital Medicine Assessment/Plan Resident Physician Supervision Note: I was present with Dr. Spence during the history and exam. I discussed the case with the resident and agree with the findings and plan as documented in the note. Any exceptions or clarifications are listed here: continued improvement in decreased appetite and abdominal discomfort, tolerating clears better and diminished left sided epigastric pain. Would advance diet today. Stable to transition to GMF Discussed w/ patients step-father in room - would like any procedural intervention done at [facility] in [place].
[2018-01-25] MEDS: PANTOprazole INJ 40 MG in SYRINGE 0 ML IV SCH (11:04)
[2018-01-25 12:00] VITALS: BP 120/82
[2018-01-25] MEDS: OXYCODONE HCL IR 5 MG TAB (IMMEDIATE RELEASE) PO PRN ×3 (12:05→20:20)
[2018-01-25] MEDS ORDERED: VANCOMYCIN TROUGH ONE ×2 (13:30→14:30)
[2018-01-25 14:17] VITALS: BP 107/73; PULSE 81; TEMP 37.1; O2SAT 94
--- NOTE | 2018-01-25 15:37 | Pharmacy Progress Note ---
Pharmacy Antibiotic Prog Note Date of Service Jan 25, 2018. Subjective The patient is currently receiving vancomycin 1250 mg iv q 8 hrs Objective Height (Feet): 5 Height (Inches): 7.00 Weight (Kilograms): 75.000 Levels: Item Value Date Time Vancomycin Level Trough 15.0 mcg/ml 01/25/18 1430 Random Vancomycin Level 17.4 mcg/ml 01/24/18 1352 Vancomycin Level Trough 28.8 mcg/ml 01/24/18 0918 Lab Results (24hrs): Test 01/25/18 05:47 01/25/18 14:30 Creatinine 0.91 mg/dl (0.60-1.40) Est Creatinine Clear Calc Drug Dose 121.1 ml/min Estimated GFR () 140.1 Estimated GFR (Non- 120.9 Vancomycin Level Trough 15.0 mcg/ml (SEE COMMENT) Assessment & Plan Patient receiving vancomycin + primaxin IV for treatment of pancreatitis. ID is following the patient. Vancomycin: * Trough level this afternoon came back therapeutic at ~15 mcg/ml (goal 15-20 mcg/ml) * Will continue with current regimen of vancomycin for now - ID recommends 14 days total of abx * Previous pharmacokinetic data showed a slightly lower trough on this dosing regimen, therefore feel that patient may be accumulating medication over time as the abx is continued * Recommend rechecking trough in next 2-3 days or sooner based on clinical judgement Pharmacy will continue to follow and will adjust dose/frequency as necessary. Thank you
[2018-01-25 15:50] VITALS: BP 114/70; PULSE 81; TEMP 36.7; O2SAT 96
[2018-01-26 00:05] VITALS: BP 118/77; PULSE 65; TEMP 36.7; O2SAT 99
[2018-01-26] MEDS: IMIPENEM/CILASTATIN IV 500 MG in DEXTROSE 5% 100ML 100 ML IV SCH ×4 (01:46→19:35)
[2018-01-26] MEDS: VANCOMYCIN HCL 125 MG/2.5ML SOLN PO SCH ×4 (03:23→21:07)
[2018-01-26] MEDS: RASPBERRY SYRUP 5 ML UDP PO SCH ×4 (03:23→21:07)
[2018-01-26] MEDS: VANCOMYCIN IV 1,250 MG in SODIUM CHLORIDE 0.9% 250ML 250 ML IV SCH (06:29)
[2018-01-26 06:59] LABS: BASO % 0.1 %; BASO ABS # 0.01 K/uL (0-0.2); EOS % 2.8 %; EOS ABS # 0.21 K/uL (0-0.5); HEMATOCRIT 31.5 % (42-52); HEMOGLOBIN 10.7 g/dL (14.0-18.0); IG# 0.06 K/uL (0.00-0.02); LYMPH % 13.1 %; MEAN CELL VOLUME 91.3 fL (80-100); MONO % 10.4 %; MONO ABS # 0.79 K/uL (0.11-0.59); NEUT % 72.8 %; NEUT ABS # 5.55 K/uL (1.4-6.5); PLATELET COUNT 728 K/uL (130-400); RED CELL DISTRIBUTION WIDTH CV 12.6 % (11.5-14.5); RED CELL DISTRIBUTION WIDTH SD 42.5 fL (36.4-46.3); WHITE BLOOD COUNT 7.62 K/uL (4.8-10.8)
[2018-01-26 07:32] LABS: CALCIUM 8.4 mg/dl (8.5-10.1); CREATININE 0.98 mg/dl (0.60-1.40); POTASSIUM 3.2 mmol/L (3.5-5.1)
[2018-01-26 07:45] VITALS: BP 107/69; PULSE 73; TEMP 36.8; O2SAT 96
[2018-01-26] MEDS ORDERED: POTASSIUM CHLORIDE 20 MEQ TABCR PO STA (08:03)
[2018-01-26] MEDS: DOCUSATE SODIUM 100 MG CAP PO SCH ×2 (09:05→21:08)
[2018-01-26] MEDS: ENOXAPARIN 40 MG/0.4 ML SYR SQ SCH (09:08)
[2018-01-26] MEDS: OXYCODONE HCL IR 5 MG TAB (IMMEDIATE RELEASE) PO PRN ×3 (10:17→21:07)
[2018-01-26] MEDS: PANTOprazole INJ 40 MG in SYRINGE 0 ML IV SCH (10:55)
--- NOTE | 2018-01-26 11:06 | Progress Note ---
Subjective Date of Service: Jan 26, 2018. Subjective Pt evaluation today including: conversation w/ patient, physical exam, chart review, lab review pt seen in followup, fevers gone. tolerating abx. tolerating clears but little appetite, no n/v/d. abd pain improving. no cough, cp, sob. remains on abx, blood cultures negative and final. all remaining ros reviewed and are negative. Problem List Medical Problems: (1) Acute pancreatitis Status: Acute (2) Ascites Status: Acute (3) Gastroenteritis Status: Acute (4) Hepatic steatosis Status: Acute (5) Parapneumonic effusion Status: Acute (6) Pneumonia Status: Acute (7) Thrombocytopenia Status: Acute Objective Vital Signs Date Time Temp Pulse Resp B/P (MAP) Pulse Ox O2 Delivery O2 Flow Rate FiO2 01/26/18 08:00 Room Air 01/26/18 07:45 36.8 73 16 107/69 (82) 96 01/26/18 00:30 Room Air 01/26/18 00:05 36.7 65 18 118/77 (91) 99 Room Air 01/25/18 20:00 Room Air 01/25/18 16:00 Room Air 01/25/18 15:50 36.7 81 14 114/70 (85) 96 Room Air 01/25/18 14:17 37.1 81 19 94 01/25/18 12:00 120/82 (95) 01/25/18 12:00 Room Air Physical Exam General Appearance: WD/WN, no apparent distress Eyes: normal inspection, EOMI Neck: supple Respiratory/Chest: lungs clear Cardiovascular: regular rate, rhythm, no edema Abdomen: soft Extremities: non-tender, no pedal edema Neurologic/Psychiatric: alert, oriented x 3 Skin: normal color Laboratory Results Item Value Date Time Blood Culture - Preliminary Resulted 01/20/18 0922 Blood NO GROWTH TO DATE. Blood Culture - Preliminary Resulted 01/20/18 0912 Blood NO GROWTH TO DATE. Blood Culture - Preliminary Resulted 01/18/18 1224 Blood NO GROWTH TO DATE. Blood Culture - Preliminary Resulted 01/18/18 1206 Blood NO GROWTH TO DATE. Blood Culture - Final Complete 01/15/18 1942 Blood NO GROWTH Blood Culture - Final Complete 01/15/18 1921 Blood NO GROWTH C.difficile Toxin B Gene (PCR) - Final Complete 01/22/18 0710 Stool Positive for C. difficile toxin B gene Blood Culture - Final Complete 01/20/18 0922 Blood NO GROWTH Blood Culture - Final Complete 01/20/18 0912 Blood NO GROWTH Blood Culture - Final Complete 01/18/18 1224 Blood NO GROWTH Blood Culture - Final Complete 01/18/18 1206 Blood NO GROWTH Last 24 Hours Test 01/25/18 14:30 01/26/18 06:44 Vancomycin Level Trough 15.0 mcg/ml White Blood Count 7.62 K/uL Red Blood Count 3.45 M/uL Hemoglobin 10.7 g/dL Hematocrit 31.5 % Mean Corpuscular Volume 91.3 fL Mean Corpuscular Hemoglobin 31.0 pg Mean Corpuscular Hemoglobin Concent 34.0 g/dl Platelet Count 728 K/uL Mean Platelet Volume 9.0 fL Neutrophils (%) (Auto) 72.8 % Lymphocytes (%) (Auto) 13.1 % Monocytes (%) (Auto) 10.4 % Eosinophils (%) (Auto) 2.8 % Basophils (%) (Auto) 0.1 % Neutrophils # (Auto) 5.55 K/uL Lymphocytes # (Auto) 1.00 K/uL Monocytes # (Auto) 0.79 K/uL Eosinophils # (Auto) 0.21 K/uL Basophils # (Auto) 0.01 K/uL RDW Standard Deviation 42.5 fL RDW Coefficient of Variation 12.6 % Immature Granulocyte % (Auto) 0.8 % Immature Granulocyte # (Auto) 0.06 K/uL Sodium Level 140 mmol/L Potassium Level 3.2 mmol/L Chloride Level 108 mmol/L Carbon Dioxide Level 25 mmol/L Anion Gap 7.0 mmol/L Blood Urea Nitrogen 5 mg/dl Creatinine 0.98 mg/dl Est Creatinine Clear Calc Drug Dose 112.4 ml/min Estimated GFR () 128.1 Estimated GFR (Non- 110.5 BUN/Creatinine Ratio 5.1 Random Glucose 97 mg/dl Calcium Level 8.4 mg/dl Assessment and Plan (1) Acute pancreatitis Assessment & Plan: pt will remain on imipenem for now, will stop vanco. likely 14 days total, po vanco to extend additional 7 days. follow cultures, negative to date. fever improving. no plans for surgery at this time Continued [facility] stay due to: multiple IV medications needed Discharge planning: home Problem Qualifiers (1) Acute pancreatitis: Pancreatitis type: unspecified pancreatitis type Acute pancreatitis complication: unspecified Qualified Codes: K85.90 - Acute pancreatitis without necrosis or infection, unspecified
--- NOTE | 2018-01-26 11:27 | Surgery Progress Note ---
Surgery Progress Note Date of Service Jan 26, 2018. Subjective feeling better abdominal pain is better but still present tolerating full liquids bowel movements slowing no nausea or vomiting Objective Vital Signs: Date Time Temp Pulse Resp B/P (MAP) Pulse Ox O2 Delivery O2 Flow Rate FiO2 01/26/18 08:00 Room Air 01/26/18 07:45 36.8 73 16 107/69 (82) 96 01/26/18 00:30 Room Air 01/26/18 00:05 36.7 65 18 118/77 (91) 99 Room Air 01/25/18 20:00 Room Air 01/25/18 16:00 Room Air 01/25/18 15:50 36.7 81 14 114/70 (85) 96 Room Air 01/25/18 14:17 37.1 81 19 94 01/25/18 12:00 120/82 (95) 01/25/18 12:00 Room Air General Appearance: WD/WN, no apparent distress Head: normocephalic, atraumatic Neck: trachea midline Respiratory/Chest: no respiratory distress, no accessory muscle use Abdomen: non distended, soft, no organomegaly, no pulsatile mass, + tenderness (epigastric and LUQ, no rigidity or peritonitis) Laboratory Results: Results Past 24 Hours Test 01/25/18 14:30 01/26/18 06:44 Range/Units Vancomycin Level Trough 15.0 SEE COMMENT mcg/ml White Blood Count 7.62 4.8-10.8 K/uL Red Blood Count 3.45 4.7-6.1 M/uL Hemoglobin 10.7 14.0-18.0 g/dL Hematocrit 31.5 42-52 % Mean Corpuscular Volume 91.3 80-100 fL Mean Corpuscular Hemoglobin 31.0 25-34 pg Mean Corpuscular Hemoglobin Concent 34.0 32-36 g/dl Platelet Count 728 130-400 K/uL Mean Platelet Volume 9.0 7.4-10.4 fL Neutrophils (%) (Auto) 72.8 % Lymphocytes (%) (Auto) 13.1 % Monocytes (%) (Auto) 10.4 % Eosinophils (%) (Auto) 2.8 % Basophils (%) (Auto) 0.1 % Neutrophils # (Auto) 5.55 1.4-6.5 K/uL Lymphocytes # (Auto) 1.00 1.2-3.4 K/uL Monocytes # (Auto) 0.79 0.11-0.59 K/uL Eosinophils # (Auto) 0.21 0-0.5 K/uL Basophils # (Auto) 0.01 0-0.2 K/uL RDW Standard Deviation 42.5 36.4-46.3 fL RDW Coefficient of Variation 12.6 11.5-14.5 % Immature Granulocyte % (Auto) 0.8 % Immature Granulocyte # (Auto) 0.06 0.00-0.02 K/uL Sodium Level 140 136-145 mmol/L Potassium Level 3.2 3.5-5.1 mmol/L Chloride Level 108 98-107 mmol/L Carbon Dioxide Level 25 21-32 mmol/L Anion Gap 7.0 3-11 mmol/L Blood Urea Nitrogen 5 7-18 mg/dl Creatinine 0.98 0.60-1.40 mg/dl Est Creatinine Clear Calc Drug Dose 112.4 ml/min Estimated GFR () 128.1 Estimated GFR (Non- 110.5 BUN/Creatinine Ratio 5.1 10-20 Random Glucose 97 70-99 mg/dl Calcium Level 8.4 8.5-10.1 mg/dl Assessment & Plan Acute Pancreatitis with pancreatic pseudocyst, +c. diff, biliary sludge with concern for cholecystitis. -vitals stable, afebrile, leukocytosis resolved - abdominal pain improving - tolerating full liquids Plan: No acute surgical indication at this time continue current medical management Surgery signing off at this time, will follow peripherally, call with questions or concerns Dr. Shea has seen and examined pt, agrees with above
[2018-01-26 15:44] VITALS: BP 116/77; PULSE 70; TEMP 36.9; O2SAT 97
--- NOTE | 2018-01-26 16:37 | Family Medicine Progress Note ---
Progress Note Date of Service Jan 26, 2018. Subjective Pt evaluation today including: conversation w/ patient, physical exam, chart review, lab review Pain: 5/10 abdominal pain at its worst PO Intake: tolerating full liquid diet Voiding: no voiding problems This AM reports 3-5/10 abdominal pain mainly L sided. No n/v. Reports persistent sob. BMs more formed. Constitutional: No fever Respiratory: + shortness of breath Cardiovascular: No chest pain Abdomen: + pain, No nausea, No vomiting Male : No dysuria Medications Current Inpatient Medications Medications (Trade) Dose Ordered Sig/Judith Route Start Time Stop Time Status Last Admin Dose Admin Ondansetron HCl (Zofran Inj) 4 mg Q6H PRN IV 01/14/18 00:45 02/13/18 00:44 01/22/18 19:57 4 MG Acetaminophen (Tylenol Tab) 650 mg Q4 PRN PO 01/16/18 12:00 02/15/18 00:00 01/22/18 19:57 650 MG Pantoprazole Sodium 40 mg/ Syringe 10 ml @ 5 mls/min DAILY@11 IV 01/17/18 11:00 02/16/18 10:59 01/26/18 10:55 5 MLS/MIN Docusate Sodium (coLACE CAP) 100 mg BID PO 01/17/18 21:00 02/16/18 20:59 01/26/18 09:05 100 MG Simethicone (Mylicon Chew Tab) 80 mg Q6H PRN PO 01/17/18 18:15 02/16/18 18:14 01/17/18 18:33 80 MG Enoxaparin Sodium (Lovenox Inj) 40 mg QAM SQ 01/18/18 09:00 02/17/18 08:59 01/26/18 09:08 40 MG Oxycodone HCl (Roxicodone Immediate Rel Tab) 5 mg Q4 PRN PO 01/18/18 16:30 02/01/18 16:29 01/26/18 16:32 5 MG Imipenem/ Cilastatin Sodium 500 mg/Dextrose 110 ml @ 100 mls/hr Q6H IV 01/20/18 16:00 01/30/18 15:59 01/26/18 13:31 100 MLS/HR Levalbuterol (Xopenex 0.63 Mg/ 3 Ml Neb) 0.63 mg Q4 PRN INH 01/22/18 10:30 02/21/18 10:29 Vancomycin HCl (Vancomycin Oral Soln) 125 mg Q6H PO 01/22/18 15:00 02/01/18 14:59 01/26/18 15:49 125 MG Raspberry (Raspberry Syrup 5ml Cup) 5 ml Q6H PO 01/22/18 15:00 02/05/18 14:59 01/26/18 15:49 5 ML Morphine Sulfate (MoRPHine SULFATE INJ) 2 mg Q6HWA PRN IV 01/24/18 10:15 02/04/18 10:14 Objective Vital Signs Date Time Temp Pulse Resp B/P (MAP) Pulse Ox O2 Delivery O2 Flow Rate FiO2 01/26/18 16:00 Room Air 01/26/18 15:44 36.9 70 20 116/77 (90) 97 Room Air 01/26/18 08:00 Room Air 01/26/18 07:45 36.8 73 16 107/69 (82) 96 01/26/18 00:30 Room Air 01/26/18 00:05 36.7 65 18 118/77 (91) 99 Room Air 01/25/18 20:00 Room Air Physical Exam General Appearance: no apparent distress Eyes: normal inspection Neck: supple Respiratory/Chest: lungs clear, + decreased breath sounds (bilateral lung bases ) Cardiovascular: regular rate, rhythm, no murmur Abdomen: normal bowel sounds, soft, + tenderness (LUQ) Extremities: non-tender, no pedal edema Neurologic/Psychiatric: alert Skin: warm/dry Laboratory Results 01/26/18 06:44 Red Blood Count 3.45, Mean Corpuscular Volume 91.3, Mean Corpuscular Hemoglobin 31.0, Mean Corpuscular Hemoglobin Concent 34.0, Mean Platelet Volume 9.0, Neutrophils (%) (Auto) 72.8, Lymphocytes (%) (Auto) 13.1, Monocytes (%) (Auto) 10.4, Eosinophils (%) (Auto) 2.8, Basophils (%) (Auto) 0.1, Neutrophils # (Auto ) 5.55, Lymphocytes # (Auto) 1.00, Monocytes # (Auto) 0.79, Eosinophils # (Auto ) 0.21, Basophils # (Auto) 0.01 01/26/18 06:44 Test 01/26/18 06:44 White Blood Count 7.62 K/uL (4.8-10.8) Red Blood Count 3.45 M/uL (4.7-6.1) Hemoglobin 10.7 g/dL (14.0-18.0) Hematocrit 31.5 % (42-52) Mean Corpuscular Volume 91.3 fL (80-100) Mean Corpuscular Hemoglobin 31.0 pg (25-34) Mean Corpuscular Hemoglobin Concent 34.0 g/dl (32-36) Platelet Count 728 K/uL (130-400) Mean Platelet Volume 9.0 fL (7.4-10.4) Neutrophils (%) (Auto) 72.8 % Lymphocytes (%) (Auto) 13.1 % Monocytes (%) (Auto) 10.4 % Eosinophils (%) (Auto) 2.8 % Basophils (%) (Auto) 0.1 % Neutrophils # (Auto) 5.55 K/uL (1.4-6.5) Lymphocytes # (Auto) 1.00 K/uL (1.2-3.4) Monocytes # (Auto) 0.79 K/uL (0.11-0.59) Eosinophils # (Auto) 0.21 K/uL (0-0.5) Basophils # (Auto) 0.01 K/uL (0-0.2) RDW Standard Deviation 42.5 fL (36.4-46.3) RDW Coefficient of Variation 12.6 % (11.5-14.5) Immature Granulocyte % (Auto) 0.8 % Immature Granulocyte # (Auto) 0.06 K/uL (0.00-0.02) Anion Gap 7.0 mmol/L (3-11) Est Creatinine Clear Calc Drug Dose 112.4 ml/min Estimated GFR () 128.1 Estimated GFR (Non- 110.5 BUN/Creatinine Ratio 5.1 (10-20) Calcium Level 8.4 mg/dl (8.5-10.1) Assessment and Plan 22 yo healthy male admitted on for acute pancreatitis on 01/14/18. Now afebrile with normalized WBC. ID on board. Concern for pancreatic pseudocysts and acute cholecystitis based on repeat abdominal CT on 01/22. Conservative management with IV imipenem/vancomycin. C.diff also positive and on PO vanc. No PNA, pericarditis or PE per CT chest on 01/21. Acute Pancreatitis with pseudocysts: afebrile, normalized WBC -Unknown etiology -Likely secondary to pancreatic divisum vs. gallbladder sludge with no obstruction -Repeat CT abdomen 01/22 - acute cholecystitis and numerous large pancreatic pseudocysts -Continue Morphine 2mg Q2H PRN and Oxycodone 5mg Q4H PRN for pain control ( taking) -Continue Zofran as needed for nausea -Continue Imipenem IV -Dced vanc IV -Tolerating full liquid diet --> transition to low fat diet -GI consulted: -MRCP noted findings c/w acute pancreatitis, bilateral effusions, and abdominal ascites -serologic studies: positive EBV IgG (previous infection); Hep A, B, C negative; influenza neg; mycoplasma IgG pos but IgM neg -lipids follow up outpatient - not elevated enough for pancreatitis -Consulted ID: Dr. Ramos following initially broadened antibiotic coverage to imipenem/vanc from vanc/zosyn and started on fluconazole for antifungal coverage (dced fluconazole on 01/22) - TODAY: dced vanc IV; 14 day total course, PO vanc 7 additional days Diarrhea: improving - C.diff positive - Stool negative for occult blood - Scx studies negative - Vanc PO 125mg Q6H Atelectasis vs. Hospital-acquired pneumonia: SOB with movement -On imipenem which should provide adequate pulm coverage -CT PE: Small pleural effusions with compressive atelectasis, no PE Autoimmune work-up - ESR elevated 84 - CRP elevated 27.3 - RF nl <14 - VANCE pending SIRS + Sepsis: See above, initially pancreatitis SIRS, now sepsis from pneumonia. 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 Discussed with Dr. Martin and agree with findings and plan as documented in the note. Any exceptions or clarifications are listed here: None Documented By: Jaya Evan feeling better wants to get out of the hospital no significant pain after eating. does get more bloated after eating vitals noted nad breathing unlabored abd mild distention mild tender epigastric at worst, no guarding no rebound - markedly improved from when i last examined him last week; ambulating well without difficulty acute idiopathic pancreatitis w pseudocyst formation and appearance of cholecystitis on CT -abx, supportive care, repeat CT tomorrow, advance diet, will d/w ID ?PO abx - work towards home Resident Involvement: Resident Care Provided Care Provided: Adult Hospital Medicine
--- NOTE | 2018-01-26 18:08 | GASTROENTEROLOGY PROGRESS NOTE ---
DATE: 01/26/2018 SUBJECTIVE: Chart reviewed: The patient examined. The patient perhaps doing better, was moved to a floor bed yesterday. Abdominal pain is approximately 5/10, mostly in the left mid abdomen adjacent to the umbilicus. With palpation, this is 6 to 7 over 10. The patient is tolerating liquids well and will have his diet advanced to soft later this evening. He denies any fever or chills. His breathing is more comfortable than it had been and did ambulate today. He did develop C. difficile colitis, and his laboratory studies from today show white count of 7.6, which is stable, hemoglobin 10.7 and in a stable range. There was no evidence for acute hepatitis A. His B surface antigen was negative. Core IgM nonreactive. Hepatitis C antibody negative. Barry screen was negative. Mycoplasma IgG was elevated although the IgM was normal. Urine legionella antigen is pending. IMAGING: Most recent imaging from 01/22/2018 showed collections in the abdomen consistent with probable pseudocyst. Lipase is in the normal range several days ago. MEDICATIONS: Include vancomycin 125 q.6, Primaxin, Lovenox, Colace, pantoprazole. OBJECTIVE: VITAL SIGNS: Today, the patient is afebrile at 36.9, blood pressure 116/77, respirations 20, pulse 70, and 97% on room air. GENERAL: The patient is awake, alert, oriented x3, resting comfortably in bed. His mother is present in the room. HEART: Normal S1 and S2. LUNGS: Clear to auscultation although decreased breath sounds at bases. ABDOMEN: Soft, tender in the mid left abdominal region, without rebound or guarding. This is with moderate palpation. There are, however, positive bowel sounds. No evidence of distention or firm abdomen. EXTREMITIES: Without edema. RECTAL: Deferred. IMPRESSION AND PLAN: The patient with pancreatitis that may be of uncertain etiology. Currently, it does not appear that this was related to either influenza or mycoplasma. Legionella is pending. There is a fatty appearance to the liver on imaging. There was also pancreatic divisum identified. At this point, the patient's diet is being slowly advanced, and this can be cautiously increased. The patient was reminded to use incentive spirometry to help expand the lungs, ambulate as tolerated, and he reports that his narcotic requirements are decreasing. If imaging is to be obtained later in this week to reassess these collections, would consider MR technology to avoid excess radiation. Perhaps or Friday would be optimal. The patient appears to be continuing to slowly improve over the past week. We will continue to follow with you. Ultimately upon discharge, his care will be in the [facility] where his family resides. At that point, a repeat imaging, lipid testing, and assessment for any gallbladder sludge would be reasonable although his LFTs on presentation failed to show a clear biliary obstruction. All questions answered. Dr. Barrientos will be covering tomorrow.
[2018-01-27] VITALS: BP 131/84; PULSE 61; TEMP 36.8; O2SAT 98
[2018-01-27] MEDS: IMIPENEM/CILASTATIN IV 500 MG in DEXTROSE 5% 100ML 100 ML IV SCH ×3 (02:13→14:32)
[2018-01-27] MEDS: RASPBERRY SYRUP 5 ML UDP PO SCH ×3 (02:13→16:23)
[2018-01-27] MEDS: VANCOMYCIN HCL 125 MG/2.5ML SOLN PO SCH ×3 (02:13→16:23)
[2018-01-27] MEDS: OXYCODONE HCL IR 5 MG TAB (IMMEDIATE RELEASE) PO PRN ×3 (03:36→15:10)
[2018-01-27 06:39] LABS: BASO % 0.1 %; BASO ABS # 0.01 K/uL (0-0.2); EOS % 4.3 %; EOS ABS # 0.29 K/uL (0-0.5); HEMATOCRIT 31.4 % (42-52); HEMOGLOBIN 10.8 g/dL (14.0-18.0); IG# 0.06 K/uL (0.00-0.02); LYMPH % 20.5 %; LYMPH ABS # 1.39 K/uL (1.2-3.4); MEAN CELL VOLUME 91.3 fL (80-100); MEAN CORPUSCULAR HEMOGLOBIN 31.4 pg (25-34); MEAN CORPUSCULAR HGB CONC 34.4 g/dl (32-36); MEAN PLATELET VOLUME 9.5 fL (7.4-10.4); MONO % 14.4 %; MONO ABS # 0.98 K/uL (0.11-0.59); NEUT % 59.8 %; NEUT ABS # 4.06 K/uL (1.4-6.5); PLATELET COUNT 724 K/uL (130-400); RED CELL DISTRIBUTION WIDTH CV 12.5 % (11.5-14.5); RED CELL DISTRIBUTION WIDTH SD 42.2 fL (36.4-46.3); WHITE BLOOD COUNT 6.79 K/uL (4.8-10.8)
[2018-01-27 07:16] LABS: CALCIUM 8.5 mg/dl (8.5-10.1); CREATININE 1.05 mg/dl (0.60-1.40); POTASSIUM 3.6 mmol/L (3.5-5.1)
[2018-01-27] MEDS: ENOXAPARIN 40 MG/0.4 ML SYR SQ SCH (08:00)
[2018-01-27] MEDS: DOCUSATE SODIUM 100 MG CAP PO SCH (08:00)
[2018-01-27 08:20] VITALS: BP 130/82; PULSE 60; TEMP 36.8; O2SAT 98
[2018-01-27] MEDS ORDERED: OPTIRAY 320 IV PRN (10:15)
[2018-01-27] MEDS: PANTOprazole INJ 40 MG in SYRINGE 0 ML IV SCH (12:00)
--- NOTE | 2018-01-27 12:27 | Family Medicine Progress Note ---
Progress Note Date of Service January 27, 2018.
--- NOTE | 2018-01-27 14:20 | DIAGNOSTIC IMAGING REPORT ---
CT SCAN OF THE ABDOMEN WITH IV CONTRAST CLINICAL HISTORY: Pancreatitis. Pseudocysts. Cholecystitis. COMPARISON STUDY: Abdominal CT dated 01/22/2018 and 01/15/2018. TECHNIQUE: Following the IV administration of 95 cc of Optiray 320, CT scan of the abdomen is performed from the lung bases to the pelvic inlet. Images are reviewed in the axial, sagittal, and coronal planes. IV contrast was administered without complication. A dose lowering technique was utilized adhering to the principles of ALARA. CT DOSE: 161.17 mGy.cm FINDINGS: Lung bases: The heart is normal in size and without pericardial effusion. There are small to moderate left and trace right pleural effusions. The right pleural effusion has decreased in size from previous. Bibasilar consolidation persists. Liver: The contrast-enhanced liver is mildly enlarged, measuring 18.7 cm and length. The liver demonstrates diminished attenuation suggesting hepatic steatosis. Fatty sparing is seen adjacent to gallbladder fossa. There is no intrahepatic biliary ductal dilatation. The hepatic veins and portal veins are patent. Gallbladder: Gallbladder distention is improved. The gallbladder wall appears mildly thickened and hyperemic and pericholecystic stranding persists. Spleen: Normal in size and attenuation. Pancreas: The pancreas is enlarged and edematous. There is peripancreatic inflammation and fluid, and the appearance is consistent with acute pancreatitis. The gland enhances homogeneously. The splenic vein is patent. Adrenal glands: Unremarkable. Kidneys: The contrast enhanced kidneys are normal in size and without hydronephrosis. The kidneys enhance symmetrically. Abdominal vasculature: The abdominal aorta is normal in course and caliber. Bowel: There is no evidence of bowel obstruction. The imaged loops of small bowel and colon are normal in appearance. The partially visualized appendix is normal in appearance. Peritoneum: Abdominal ascites is a most completely resolved. Again seen are numerous multilocular thick walled collections identified consistent with pancreatic pseudocysts. These have modestly decreased in size from 01/22/2018. A multiloculated collection is seen inferior to the stomach on image #[id number]. This measures approximately 5.5 x 8 cm in axial dimension (previously measured approximately 7.5 x 10 cm). A loculated collection along the greater curvature of the stomach measures approximately 6 x 4 cm in axial diameter (previously measured approximately 8 x 4.5 cm) as seen on image #123. Smaller collections around the pancreatic tail and in the gastrohepatic space have also decreased in size. No intraperitoneal free air is seen. There is a small fat-containing umbilical hernia Lymphadenopathy: There are numerous prominent retroperitoneal and mesenteric lymph nodes, likely on a reactive basis. Skeletal structures: No lytic or blastic lesions are seen. IMPRESSION: 1. Again seen are changes of acute pancreatitis. There is no evidence of necrosis and the splenic vein is patent. 2. Again seen are several large, multiloculated, and thick-walled fluid collections scattered throughout the upper abdomen, greatest around the stomach and pancreas. These have modestly decreased in size from 01/22/2018 and remain typical in appearance for pancreatic pseudocysts. The sterility of these collections cannot be evaluated by CT. 3. Findings remain consistent with acute cholecystitis. The degree of gallbladder distention has improved from 01/22/2018. 4. Small to moderate left and trace right pleural effusions. The right pleural effusion has decreased in size from previous. 5. There is bibasilar consolidation, right greater than left. Although this could represent atelectasis the appearance is concerning for pneumonia. Clinical correlation will be required. 6. Hepatomegaly and mild hepatic steatosis. 7. Additional findings as above. Electronically signed by: Mehul Bob M.D. 01/27/2018 2:19 PM Dictated Date/Time: 01/27/2018 2:07 PM
[2018-01-27] MEDS ORDERED: VANC1SUS PO (14:28)
[2018-01-27] MEDS ORDERED: AMOX875T PO (14:28)
[2018-01-27] MEDS ORDERED: RXC5 PO (14:28)
[2018-01-27] MEDS ORDERED: CLC100 PO (14:28)
--- NOTE | 2018-01-27 15:06 | Discharge Instructions ---
Discharge Instructions Date of Service January 27, 2018. Admission Reason for Admission: Acute Pancreatitis Discharge Discharge Diagnosis / Problem: acute idiopathic pancreatitis Discharge Goals Goal(s): Diagnostic testing, Therapeutic intervention Activity Recommendations Activity Limitations: resume your previous activity . Instructions / Follow-Up Instructions / Follow-Up pancreatitis -etiology not entirely clear -main possibilities appear related to pancreas divisum versus biliary disease -at this point with things getting better, conservative care and close follow up are most appropriate; at some point it appears that your gallbladder should come out, but as long as you're not having gallbladder related symptoms (especially right upper abdominal pain after you eat) this can be better done on a more elective basis when the inflammation calms down -pseudocysts - these are small eroded pockets of pancreas from the severity of inflammation your pancreatitis caused. fortunately these don't seem to be causing you a lot of pain; they can be drained if they're causing you a lot of discomfort over time (typically in the epigastric region//right under the middle of your ribcage ) but if they're not hurting, it is a little more debatable if anything needs to be done or if they can just be carefully watched. the good news too, is that your pseudocysts actually appear smaller today than they did on prior scans -pain control - the pain appears to be improving, for now we'll have you use the oxycodone 5mg up to four times a day as needed for pain, as you continue to improve it should be safe to "downgrade" to anti-inflammatories for a while; the narcotics can be constipating - use colace (docusate) twice a day (hold for loose stools) pretty routinely until you're off the oxycodone; if you don't have a bowel movement for a day in spite of taking the colace, then you can add miralax on top of the colace until you have bowel movements again -diet - we typically recommend a low fat diet recovering from pancreatitis, and especially with your gallbladder having appeared inflamed, we'll definitely want you to be on a low fat diet for the foreseeable future. even though your case of pancreatitis was not induced by alcohol, alcohol is one of the most common causes of pancreatitis, so to be safe, we'd strongly recommend zero alcohol intake so that you don't risk provoking things gallbladder -your gallbladder currently appears inflamed and swollen; however, it didn't actually start to look this way until well into your hospital stay. while it is possible that your gallbladder was the culprit with causing the pancreatitis , it's actually just as likely (or more likely) that the gallbladder inflammation is just "boil over" from your pancreas having been so inflamed. as above noted, follow a low fat diet for the foreseeable future, and we'll want people following how you're doing, with the likelihood of needing to take your gallbladder out electively in the [id number] future pneumonia -early in the course of your pancreatitis, you appeared to develop a small left lower lobe pneumonia, this is improving nicely. recovery and follow up -when someone has had a significant illness like this, it often can take a while to bounce back. even after the pain has gone and things have been taken care of with the gallbladder, it's quite likely that you'll have an ongoing general fatigue that may take several months to truly improve. as long as you' re seeing progress, realize this can take a while (even when you're young and healthy). usually we recommend looking at this progress more in 3-4 day intervals rather than day to day. (day to day can happen, but it's often so slow that it's a bit like watching grass grow. on the other hand, usually people will see some degree of improvement every 3-4 days; if you don't, but nothing is worse, then give it a few more days -- if you've seen a week with no improvement, or see any clear worsening, then we'd want you seen right away). -we'll definitely want a lot of close follow up for you - and can easily have you work between here and [place] as far as how that follow up goes. while you're local, we'll have you follow up with [facility] ( the arm of our team that includes the residents, as well as Dr Santamaria and Curry who were seeing you during part of your stay as well) and we can have follow up in regards to the pancreas and gallbladder with [facility]; once you're in [place], obviously we'll want the same kind of follow up, but it will be with your regular docs back home. if any questions arise about this hospital stay//if there are questions or difficulty with getting records, etc, please don't hesitate to give my office a call - [phone] (usually Suyapa, one of our administrators, will answer and can direct anything you need my way) Current Hospital Diet Patient's current hospital diet: Low Fat Diet Discharge Diet Recommended Diet: Low Fat Diet Pending Studies Studies pending at discharge: no Laboratory Results Hemoglobin A1c Test 01/14/18 07:33 Range/Units Estimated Average Glucose 94 mg/dl Hemoglobin A1c 4.9 4.5-5.6 % Lipid Panel Test 01/14/18 00:55 Range/Units Triglycerides Level 340 H 0-150 mg/dl Cholesterol Level 81 0-200 mg/dl HDL Cholesterol 24 mg/dl Cholesterol/HDL Ratio 3.4 LDL Cholesterol, Calculated mg/dl Medical Emergencies . Who to Call and When: Medical Emergencies: If at any time you feel your situation is an emergency, please call 911 immediately. . Non-Emergent Contact Non-Emergency issues call your: Primary Care Provider, Ginner . . "Provider Documentation" section prepared by Jaya Gordon. .
[2018-01-27 15:13] VITALS: BP 109/74; PULSE 75; TEMP 36.4; O2SAT 98
[2018-01-27 15:54] VITALS: BP 109/74; PULSE 75; TEMP 36.4; O2SAT 98
--- NOTE | 2018-01-27 17:05 | Discharge Summary ---
Discharge Summary Date of Service January 27, 2018. Discharge Summary Admission Date: Jan 14, 2018 at 00:43 Discharge Date: January 27, 2018 Discharge Disposition: Home Principal Diagnosis: Pancreatitis with pseudocyts Problems/Secondary Diagnoses: pancreatic divisum gallbladder sludge with acute cholecystitis bilateral pulmonary effusion C. diff infection Immunizations: History of Tetanus Vaccine?: Unknown History of Pneumococcal: No History of Hepatitis B Vaccine: Unknown Procedures: CT SCAN OF THE ABDOMEN WITH IV CONTRAST - 01/27/18 CLINICAL HISTORY: Pancreatitis. Pseudocysts. Cholecystitis. COMPARISON STUDY: Abdominal CT dated 01/22/2018 and 01/15/2018. TECHNIQUE: Following the IV administration of 95 cc of Optiray 320, CT scan of the abdomen is performed from the lung bases to the pelvic inlet. Images are reviewed in the axial, sagittal, and coronal planes. IV contrast was administered without complication. A dose lowering technique was utilized adhering to the principles of ALARA. CT DOSE: 161.17 mGy.cm FINDINGS: Lung bases: The heart is normal in size and without pericardial effusion. There are small to moderate left and trace right pleural effusions. The right pleural effusion has decreased in size from previous. Bibasilar consolidation persists. Liver: The contrast-enhanced liver is mildly enlarged, measuring 18.7 cm and length. The liver demonstrates diminished attenuation suggesting hepatic steatosis. Fatty sparing is seen adjacent to gallbladder fossa. There is no intrahepatic biliary ductal dilatation. The hepatic veins and portal veins are patent. Gallbladder: Gallbladder distention is improved. The gallbladder wall appears mildly thickened and hyperemic and pericholecystic stranding persists. Spleen: Normal in size and attenuation. Pancreas: The pancreas is enlarged and edematous. There is peripancreatic inflammation and fluid, and the appearance is consistent with acute pancreatitis. The gland enhances homogeneously. The splenic vein is patent. Adrenal glands: Unremarkable. Kidneys: The contrast enhanced kidneys are normal in size and without hydronephrosis. The kidneys enhance symmetrically. Abdominal vasculature: The abdominal aorta is normal in course and caliber. Bowel: There is no evidence of bowel obstruction. The imaged loops of small bowel and colon are normal in appearance. The partially visualized appendix is normal in appearance. Peritoneum: Abdominal ascites is a most completely resolved. Again seen are numerous multilocular thick walled collections identified consistent with pancreatic pseudocysts. These have modestly decreased in size from 01/22/2018. A multiloculated collection is seen inferior to the stomach on image #[id number]. This measures approximately 5.5 x 8 cm in axial dimension (previously measured approximately 7.5 x 10 cm). A loculated collection along the greater curvature of the stomach measures approximately 6 x 4 cm in axial diameter (previously measured approximately 8 x 4.5 cm) as seen on image #123. Smaller collections around the pancreatic tail and in the gastrohepatic space have also decreased in size. No intraperitoneal free air is seen. There is a small fat-containing umbilical hernia Lymphadenopathy: There are numerous prominent retroperitoneal and mesenteric lymph nodes, likely on a reactive basis. Skeletal structures: No lytic or blastic lesions are seen. IMPRESSION: 1. Again seen are changes of acute pancreatitis. There is no evidence of necrosis and the splenic vein is patent. 2. Again seen are several large, multiloculated, and thick-walled fluid collections scattered throughout the upper abdomen, greatest around the stomach and pancreas. These have modestly decreased in size from 01/22/2018 and remain typical in appearance for pancreatic pseudocysts. The sterility of these collections cannot be evaluated by CT. 3. Findings remain consistent with acute cholecystitis. The degree of gallbladder distention has improved from 01/22/2018. 4. Small to moderate left and trace right pleural effusions. The right pleural effusion has decreased in size from previous. 5. There is bibasilar consolidation, right greater than left. Although this could represent atelectasis the appearance is concerning for pneumonia. Clinical correlation will be required. 6. Hepatomegaly and mild hepatic steatosis. 7. Additional findings as above. CHEST CTA for PULMONARY ARTERIES 01/21/18 CT DOSE: 391.56 mGycm HISTORY: Short of breath. TECHNIQUE: Multiaxial CT images of the chest were performed following the intravenous administration of contrast to evaluate the pulmonary arteries. Maximal intensity projection images were also obtained. A dose lowering technique was utilized adhering to the principles of ALARA. COMPARISON STUDY: Chest 01/20/2018. Abdomen and pelvis CT 01/15/2018. FINDINGS: Normal caliber thoracic aorta with no evidence for dissection. The heart is normal in size. Small right and moderate left pleural effusions persist. Respiratory motion artifact resulting in suboptimal evaluation of the majority of the segmental and subsegmental pulmonary arteries. However, there are no definite filling defects to suggest pulmonary embolus. No mediastinal or hilar lymphadenopathy. Abdominal ascites has improved. Peripancreatic inflammatory changes only partially visualized. Complete compressive atelectasis of the left lower lobe and partial compressive atelectasis of the right lower lobe due to the pleural effusions. No fractures within the visualized osseous structures. Small amount of mucoid material within the proximal trachea. Otherwise, the central airways are patent. No pneumothorax. There is also a small amount of consolidation within the lingula posteriorly. This is also likely due to compressive atelectasis from the pleural effusion. IMPRESSION: 1. No definite evidence for pulmonary embolus. 2. Moderate left and small right pleural effusions persist. There is associated consolidation of the bilateral lower lobes which favors compressive atelectasis from the pleural effusions. 3. The abdominal ascites has improved. 4. The peripancreatic inflammatory change is partially visualized. MRCP 01/16/18 CLINICAL HISTORY: Elevated bilirubin. Pancreatitis. COMPARISON STUDY: Abdominal ultrasound dated 01/16/2018. Abdominal CT dated 01/15/2018. TECHNIQUE: Abdominal MRCP is performed utilizing various T2-weighted sequences in the axial and coronal planes. IV contrast was not administered for this examination. 3-D reformats are created and assessed. FINDINGS: The gallbladder is distended but otherwise normal in appearance. No gallstones are identified. There is minimal intrahepatic biliary ductal dilatation. The common bile duct is normal in caliber and measures up to 5 mm. There are no filling defects identified to suggest choledocholithiasis. The pancreatic duct is normal in caliber. Pancreas divisum is noted. There are small to moderate bilateral pleural effusions. The hepatic parenchyma is normal as imaged. A small volume of ascites is seen in the upper abdomen. There is pancreatic stranding and fluid consistent with the reported history of pancreatitis. The spleen, adrenal glands, and kidneys are normal as visualized. No bowel obstruction is identified. The abdominal aorta is normal in caliber. The visualized bony structures demonstrate normal marrow signal intensity. There is mild body wall edema. IMPRESSION: 1. No gallstones are identified and there is no evidence of choledocholithiasis. 2. Pancreas divisum is identified. 3. Findings consistent with acute pancreatitis. 4. There are bilateral pleural effusions as well as abdominal ascites. Consultations: Surgery - Dr. Shea GI - Dr. Souza ID - Dr. Ramos Medication Reconciliation New Medications: Amoxicillin & Pot Clavulanate (Augmentin 875-125 mg) 1 Tab Tab 875 MG PO BID, #14 TAB Docusate Sodium (Docusate Sodium) 100 Mg Cap 100 MG PO BID, #30 CAP Oxycodone HCl (Oxycodone HCl) 5 Mg Tab 5 MG PO Q6 PRN for Pain, #30 TAB Vancomycin HCl (Vancomycin HCl + Syrspend) 50 Mg/Ml Daisy 125 MG PO Q6H for 14 Days 125mg vancomycin qid x 14days Discharge Exam Review of Systems: Constitutional: No fever Respiratory: + shortness of breath (improving) Cardiovascular: No chest pain Abdomen: + pain (LUQ ), + diarrhea (improving, more formed 2x/day), No nausea, No vomiting Genitourinary - Male: No dysuria Physical Exam: General Appearance: no apparent distress Eyes: normal inspection Respiratory/Chest: lungs clear, + decreased breath sounds (b/l basilar lung martinez) Cardiovascular: regular rate, rhythm, no murmur Abdomen / GI: normal bowel sounds, + tenderness (LUQ and RUQ), + distended Extremities: no calf tenderness, no pedal edema Neurologic/Psychiatric: alert, oriented x 3 Skin: warm/dry Hospital Course 22 yo healthy male admitted on for acute pancreatitis on 01/14/18. Now afebrile with normalized WBC. Concern for pancreatic pseudocysts and acute cholecystitis on abdominal CT 01/22 - improving on repeat imaging today (prior to discharge) . Managed conservatively with IV antibiotics during hospitalization and discharged with Augmentin x 7 days. Pt also positive for C.diff received PO vanc and discharged with additional 14 day course. No PNA, pericarditis or PE per CT chest on 01/21. Acute Pancreatitis with pseudocysts: afebrile, normalized WBC -Unknown etiology -Likely secondary to pancreatic divisum vs. gallbladder sludge with no obstruction -Repeat Ct abdomen prior to discharge on 01/27: acute cholecystitis with improving distention, acute pancreatitis with decreasing size of pseudocysts; resolved abd ascites; improved pleural effusion -CT abdomen 01/22 - acute cholecystitis and numerous large pancreatic pseudocysts -Received Morphine 2mg Q2H PRN and Oxycodone 5mg Q4H PRN for pain control ( prior to discharge decreased usage of narcotics for pain) -Received Zofran as needed for nausea -Initially on IV vanc and zosyn then IV vanc and Imipenem then just imipenem; also received PO vanc for C. diff -Discharged on Augmentin 875mg BID x 7 days -Diet advanced slowly and tolerated low fat diet prior to discharge -GI consulted: followed closely -MRCP - acute pancreatitis, bilateral effusions, and abdominal ascites -serologic studies: positive EBV IgG (previous infection); Hep A, B, C negative; influenza neg; mycoplasma IgG pos but IgM neg -lipids follow up outpatient - not elevated enough for pancreatitis -Consulted ID: Dr. Ramos followed initially broadened antibiotic coverage to imipenem/vanc from vanc/zosyn and started on fluconazole for antifungal coverage (dced fluconazole on 01/22) and vanc IV on 01/26; recommended discharge on 7 days of augmentin and 14 days of vanc 125mg PO Q6H for C. diff Diarrhea: improving - C.diff positive - Stool negative for occult blood - Scx and studies negative - Received Vanc PO 125mg Q6H - discharged on same dosage for 14 additional days Atelectasis vs. Hospital-acquired pneumonia: SOB improved -Received broad spectrum antibiotic coverage -CT PE: Small pleural effusions with compressive atelectasis, no PE -CT abd 01/27 prior to dc with improving small-mod L and trace R pleural effusion with bibasilar consolidation (atelectasis vs. PNA) Autoimmune work-up - ESR elevated 84 - CRP elevated 27.3 - RF nl <14 - VANCE negative Sepsis: Given fever, WBC elevation and potential source -BCx 01/20 NGTD -UCx neg - 01/18 Anemia Hgb 10.8 - stable; given gallbladder sludge hx concern for hemoglobinopathy such as hereditary spherocytosis - peripheral smear consistent with normocytic anemia likely reactive in the setting of acute infection - Hgb electrophoresis wnl NELL - improved: Initial Cr 1.72, down to 1.0 prior to discharge - Received IVF on and off during admission as indicated Impaired fasting glucose - improved: Likely secondary to abnormal pancreatic function, improving; 94 this AM DVT prophy: SCDs Code: Full Dispo: home Resident Physician Supervision Note: I interviewed and examined the patient. Discussed with Dr. Martin and agree with findings and plan as documented in the note. Any exceptions or clarifications are listed here: None Documented By: Jaya Gordon feeling better pain reasonable extensive d/w pt and then again with father on discharge/ meds / f/u and open issues - both separately expressed good understanding vitals noted nad breathing unlabored no pallor or icterus severe pancreatitis/SIRS/sepsis/pseudocysts/inflamed gallbladder -stable for home -close outpt f/u Total Time Spent: Greater than 30 minutes This includes examination of the patient, discharge planning, medication reconciliation, and communication with other providers. Discharge Instructions Please refer to the electronic Patient Visit Report (Discharge Instructions) for additional information. Additional Copies To [facility]
[2018-01-28] MEDS ORDERED: VANCOMYCIN TROUGH ONE (06:30)
== END 2018-01-27 16:29 | disposition home or self-care (01) | DRG 438 ==
LOC: C.EDB 21:08 → C.MSN 01-14 00:43 → ENRESERV 01-14 01:48 → EDBEDREQ 01-16 01:00 → ENRESERV 01-16 01:02 → C.MSICU 01-16 01:28 → ENRESERV 01-16 10:42 → CANRESERV 01-16 10:44 → ENRESERV 01-16 10:44 → CANBEDREQ 01-16 10:49 → C.MSICU 01-16 10:54 → C.MS2W 01-16 10:54 → ENRESERV 01-16 11:44 → C.2T 01-16 12:30 → ENRESERV 01-25 13:43 → C.4E 01-25 14:45
PROVIDERS: ADMIT Internal Medicine; ATTEND Family Medicine
DX: K85.00 Idiopathic acute pancreatitis without necrosis or infection (principal); A41.9 Sepsis, unspecified organism; J18.1 Lobar pneumonia, unspecified organism; K81.0 Acute cholecystitis; N17.9 Acute kidney failure, unspecified; K86.3 Pseudocyst of pancreas; R18.8 Other ascites; K56.7 Ileus, unspecified; A04.72 Enterocolitis due to Clostridium difficile, not specified as recurrent; Y95 Nosocomial condition; D69.6 Thrombocytopenia, unspecified; R73.01 Impaired fasting glucose; K86.89 Other specified diseases of pancreas; D64.9 Anemia, unspecified; Z82.49 Family history of ischemic heart disease and other diseases of the circulatory system